=== PATIENT | male | born 1970 | race Caucasian/White ===

== ENCOUNTER 2020-04-28 12:26 | Emergency (ER) | payer MEDICARE, MEDICAID, SELFPAY ==
[2020-04-28 12:52] VITALS: BP 145/80; PULSE 60; RESP 18; TEMP 36.7; O2SAT 98; BMI 37.5
--- NOTE | 2020-04-28 13:02 | CT_ITS ---
EXAMINATION: CT LOWER LEG WITH CONTRAST, LEFT CLINICAL INFORMATION: Clinical concern for soft tissue abscess/fluid collection left lower leg. COMPARISON: Radiographs left ankle 02/20/2018 TECHNIQUE: CT left lower extremity is performed from the patellofemoral joint distally to the midfoot using 85 mL Omnipaque 350 contrast. Additional 2-D coronal and sagittal reformatted images are generated on the CT workstation and uploaded to PACS. DOSE LOWERING TECHNIQUES: This CT examination was performed using dose optimization techniques as appropriate, variously including the following: *Automated exposure control *Adjustment of mA and/or kV according to patient size (this includes techniques or standardized protocols for targeted exams where dose is matched to indication/reason for exam; i.e. extremities or head) *Use of iterative reconstruction technique DLP: 275 mGy-cm FINDINGS: There is some mild subcutaneous edema in the distal lower leg predominantly posteriorly. There is no gas in the soft tissues. There is no soft tissue loculated fluid collection. There is no fluid tracking in the deep fascial plane or deep compartment. The vasculature appears to enhance normally. There is no thrombophlebitis demonstrated. No visible arterial thrombus. There is old hardware lower tibia with compression plate and multiple screws. The hardware appears intact. There is no acute fracture. No bony destructive process or periostitis. The knee joint is unremarkable. There are old healed fractures involving the fibula. Benign intraosseous ossification is present in the lower third leg between the tibia and fibula, representing benign reactive changes. There are some benign circumscribed cysts again seen talar dome similar to the plain films 2018. No erosive changes. IMPRESSION: 1. Subcutaneous edema posterior distal lower leg. No focal abscess. No gas in the soft tissues or deep compartment fluid. 2. Old posttraumatic changes status post reduction internal fixation. Hardware intact. No bony destructive process or periostitis.
--- NOTE | 2020-04-28 13:24 | ED.LOWEXIN ---
HPI - Extremity Injury (Lower) General Chief Complaint: Extremity Injury, Lower Stated Complaint: l leg pain Time Seen by Provider: 04/28/20 12:53 Source: patient Mode of arrival: ambulatory History of Present Illness HPI Narrative: 50-year-old male with a PMHx anxiety, depression, LLE ORIF '05 presenting to ED complaining of left orosco erythema, swelling, and warmth x a few days. Admits to boil on this ankle x1 week which has since crusted over, now with swelling spreading proximally. Denies fever, chills, numbness/tingling, drainage from area, denies injury/trauma MD complaint: leg injury Related Data Previous Rx's Medication Instructions Recorded cephalexin [Keflex] 500 mg PO Q6H 7 Days #28 cap 04/28/20 sulfamethoxazole-trimethoprim 1 tab PO Q12H 7 Days #14 tab 04/28/20 [Bactrim DS] tramadol 50 mg PO Q6H PRN 3 Days #9 tab 04/28/20 Allergies Allergy/AdvReac Type Severity Reaction Status Date / Time codeine [CODEINE] Allergy Unknown PURITIS, Verified 04/28/20 12:52 HIVES, NAUSEA morphine [MORPHINE] Allergy Unknown PURITIS, Unverified 04/03/20 19:16 HIVES, NAUSEA opium (anthroposophic) Allergy Unknown SENSATIVITY Verified 04/28/20 12:52 trazodone Allergy Unknown AMS Verified 04/28/20 12:52 zolpidem [Ambien] Allergy Unknown AMS Verified 04/28/20 12:52 Opium Allergy Unknown SENSATIVITY Uncoded 04/28/20 12:52 Review of Systems Review of Systems: Constitutional: No Weight loss, No Fever, No Chills Cardiovascular: No Chest Pain, No SOB Respiratory: No Cough, No Sputum, No Wheezing Musculoskeletal: + LLE pain, No Myalgias, +L ankle Joint Swelling Skin: + LLE old surgical site erythema + warmth. Neuro: No Weakness, No Numbness, No Paresthesias Yes all other systems are reviewed and are negative [facility] Past Medical History Attestation statement: The following information was validated with the patient. Medical History (Updated 04/28/20 @ 16:15 by BRITTNI Engle) Anxiety Depression Social History Social History Advance Directives: No Advance Directives Information Provided: Yes Physical Exam Vital Signs: Vital Signs: Vital Signs Temp Pulse Resp BP Pulse Ox 04/28/20 16:07 97.8 F 55 18 129/65 97 04/28/20 12:52 98.0 F 60 18 145/80 H 98 Body Mass Index 37.5 Const: General: cooperative and healthy appearing Orientation/consciousness: patient oriented x3 Limitations: no limitations HENMT: Head: Yes normal to inspection Ears: hearing grossly normal bilaterally General nose exam: Normal external nose present Face and sinus: Yes normal facial exam Eyes: General: appearance normal, both eyes and all related structures EOM: EOMs intact bilaterally Neck: Neck: Yes normal visual inspection Resp: Effort & Inspection: normal respiratory effort Cardio: Rate: regular rate Peripheral pulses: Peripheral pulses 2+ throughout Skin: Rashes: no rashes Wounds: no wounds Neuro: General: patient oriented x3 Gait exam (Neuro): Normal gait present Extrem: Other: L ankle with swelling / healing scab to medial aspect with proximal spreading erythema/swelling with warmth. no fluctuance/induration Course Course Course Narrative: - no leukocytosis, lactate negative, labs otherwise unremarkable - CT showing subcutaneous edema posterior distal lower leg. No focal abscess. No gas in the soft tissues or deep compartment fluid. Old posttraumatic changes status post reduction internal fixation. Hardware intact. No bony destructive process - lab and imaging results discussed with patient including worrisome signs and symptoms and strict return precautions. Will DC patient home with antibiotics and close PCP follow-up. He verbalized understanding of feel safe for discharge MDM - Extremity Injury (Lower) MDM Narrative Medical decision making narrative: On exam VSS, NAD/ well-appearing. Concern for underlying cellulitis tracking old surgical site/hardware vs underlying abscess Plan: Labs, blood cx, lactic, CT LLE, reassess Lab Data Result diagrams: 04/28/20 14:08 04/28/20 14:08 Labs: Lab Results 04/28/20 04/28/20 04/28/20 Range/Units 14:07 14:08 14:08 WBC 7.2 (4.8-10.8) X10*3/uL RBC 4.47 L (4.60-5.80) X10*6/uL Hgb 12.5 L (14.0-18.0) g/dl Hct 39.7 L (42-52) % MCV 88.8 (80-98) fL MCH 28.0 (27.0-33.0) pg MCHC 31.5 (31.0-36.0) g/dl RDW 15.9 (11.0-16.0) % Plt Count 221 (160-400) X10*3/uL MPV 11.1 (9.4-12.4) fL Immature Gran % (Auto) 0.1 (0.0-0.4) % Neut % (Auto) 55.7 (45-73) % Lymph % (Auto) 26.8 (20-40) % Harlan % (Auto) 10.6 (2-11) % Eos % (Auto) 6.0 H (0-4) % Baso % (Auto) 0.8 (0-2) % Lymph # (Auto) 1.9 (1.2-4.9) X10*3/uL Harlan # (Auto) 0.8 (0.1-1.2) X10*3/uL Eos # (Auto) 0.4 (0.0-0.4) X10*3/uL Baso # (Auto) 0.1 (0.0-0.2) X10*3/uL Abs Immat Gran (auto) 0.01 (0.00-0.03) X10*3/uL Absolute Neuts (auto) 4.0 (2.0-8.3) X10*3/uL Absolute Nucleated RBC 0.000 (0.0-0.012) X10*3/uL Nucleated RBC % (auto) 0.0 (0.0-0.2) /100WBC Sodium 142 (135-145) mmol/L Potassium 4.1 (3.3-5.1) mmol/l Chloride 105 (96-108) mmol/L Carbon Dioxide 29 (22-29) mmol/L Anion Gap 12 (12-20) BUN 10 (9-16) mg/dL Creatinine 0.91 (0.5-1.4) mg/dL Estim Creat Clear Calc 113.0 Estimated GFR > 60 Random Glucose 92 (60-115) mg/dL Lactic Acid 0.8 (0.5-2.0) mmol/L Calcium 8.2 L (8.4-10.2) mg/dL Discharge Plan Discharge Clinical Impression: Cellulitis Qualifiers: Site of cellulitis: extremity Site of cellulitis of extremity: lower extremity Laterality: left Qualified Code(s): L03.116 - Cellulitis of left lower limb Patient Disposition: Home, Self-Care Instructions: Cellulitis (ED) Additional Instructions: your blood work was unremarkable today in the ED Your CAT scan showed subcutaneous edema, but no abscess Bactrim and Keflex for antibiotics, take as prescribed take Tylenol/ Motrin at home for pain/swelling In addition tramadol as an opiate pain medication, take only when pain is severe for the next 3 days Keep a close eye on the area, if it is worsening, spreading, you fever, or swelling is increasing return to the ED immediately You should be re-evaluated in a few days by your doctor Prescriptions: New cephalexin [Keflex] 500 mg capsule 500 mg PO Q6H 7 Days Qty: 28 RF: 0 sulfamethoxazole-trimethoprim [Bactrim DS] 800-160 mg tablet 1 tab PO Q12H 7 Days Qty: 14 RF: 0 tramadol 50 mg tablet 50 mg PO Q6H PRN (Reason: pain) 3 Days Qty: 9 RF: 0
[2020-04-28 14:16] LABS: MANUAL DIFF FLAG NO
[2020-04-28 14:18] LABS: Basophils Absolute Auto 0.1 X10*3/uL (0.0-0.2); Basophils Percent Auto 0.8 % (0-2); Eosinophils Absolute Auto 0.4 X10*3/uL (0.0-0.4); Hematocrit 39.7 % (42-52); Hemoglobin 12.5 g/dl (14.0-18.0); Imm Gran Abs Auto 0.01 X10*3/uL (0.00-0.03); Imm Gran Pct Auto 0.1 % (0.0-0.4); Lymphocytes Absolute Auto 1.9 X10*3/uL (1.2-4.9); Lymphocytes Percent Auto 26.8 % (20-40); Mean Corpuscular HGB Conc 31.5 g/dl (31.0-36.0); Mean Corpuscular Volume 88.8 fL (80-98); Mean Platelet Volume 11.1 fL (9.4-12.4); Monocytes Absolute Auto 0.8 X10*3/uL (0.1-1.2); Monocytes Percent Auto 10.6 % (2-11); Neutrophils Percent Auto 55.7 % (45-73); Platelet Count 221 X10*3/uL (160-400); Red Blood Count 4.47 X10*6/uL (4.60-5.80); Red Cell Distribution Width 15.9 % (11.0-16.0); White Blood Count 7.2 X10*3/uL (4.8-10.8)
[2020-04-28 14:33] LABS: Lactic Acid 0.8 mmol/L (0.5-2.0)
[2020-04-28 14:37] LABS: Anion Gap 12 (12-20); Blood Urea Nitrogen 10 mg/dL (9-16); Calcium 8.2 mg/dL (8.4-10.2); Carbon Dioxide 29 mmol/L (22-29); Chloride 105 mmol/L (96-108); Estimated Glomerular Filt Rate > 60; Glucose Random 92 mg/dL (60-115); Potassium 4.1 mmol/l (3.3-5.1); Sodium 142 mmol/L (135-145)
--- NOTE | 2020-04-28 14:58 | PC.NURSE ---
no need for 2nd set of blood cx per pa sylwia r/t lactic results 0.8
[2020-04-28] MEDS: iohexoL 350 MG/ML 100 ML INFUS..BTL IV (15:43)
[2020-04-28 16:07] VITALS: BP 129/65; PULSE 55; RESP 18; TEMP 36.6; O2SAT 97
== END 2020-04-28 16:43 | disposition home or self-care (01) ==
PROVIDERS: Physician Assistant; Emergency Provider Emergency Medicine; PCP Internal Medicine
DX: L03.116 Cellulitis of left lower limb (principal); M79.662 Pain in left lower leg
CPT/HCPCS: 36415; 73701; 80048; 83605; 85025; 87040; 99283; 99284

== ENCOUNTER → 2020-08-11 11:26 | Outpatient (BNVA) | payer MEDICARE, MEDICAID, SELFPAY | PROVIDERS: PCP Internal Medicine; Visit Provider Orthopaedic Surgery | DX: T84.7XXA Infection and inflammatory reaction due to other internal orthopedic prosthetic devices, implants and grafts, initial encounter (principal) | CPT/HCPCS: 99212 ==

== ENCOUNTER 2020-08-21 12:18 | Outpatient (REF) | payer MEDICARE, MEDICAID, SELFPAY ==
--- NOTE | ~2020-08-21 | XR_ITS ---
EXAMINATION: XR ANKLE, LEFT CLINICAL INFORMATION: Pain in the ankle and joints of the foot COMPARISON: 02/20/2018 TECHNIQUE: AP, lateral, and mortise views of the left ankle. FINDINGS: Medial plate and screw fixation hardware is present at the distal tibia with additional cannulated screw at the medial malleolus. Hardware is intact. No acute fractures seen. There is ossification along the tibiofibular syndesmosis with bridging present. This is similar to prior. The ankle mortise remains aligned with degenerative change along the mortise. No joint effusion. The soft tissues are unremarkable. XR/XR ankle LT min 3V IMPRESSION: Intact hardware at the distal left tibia. 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 Degenerative changes along the ankle mortise.
== END 2020-08-21 12:19 | disposition home or self-care (01) ==
LOC: HO.HOSX 12:18
PROVIDERS: Visit Provider Physician Assistant
DX: T84.84XD Pain due to internal orthopedic prosthetic devices, implants and grafts, subsequent encounter (principal)
CPT/HCPCS: 73610; 99212

== ENCOUNTER 2020-08-27 08:28 | Inpatient (IN) | payer MEDICARE, MEDICAID, SELFPAY ==
[2020-08-20 14:36] VITALS: BMI 81.5
--- NOTE | 2020-08-26 14:17 | P.CONAN_ITS ---
Documented by User: Ursula Covarrubiasney 08/26/20 14:23 HPI - Anesthesia Eval Consult details Narrative: 50yo M for L Removal Orthopedic Ankle Hardware h/o ETOH abuse - pt wants to limit opioids PMFSH Active Problems Active Problems: All Active Problems (Updated 08/21/20 @ 14:27 by Sydnee Jara PA-C) Painful orthopaedic hardware (Acute) Ankle pain (Acute) Leg pain (Acute) Foot pain (Acute) Multiple lipomas (Acute) Past Medical History Medical History Anxiety Depression Foot pain History of alcohol abuse History of seizure Hx of traumatic brain injury Insomnia Multiple lipomas Panic disorder PTSD (post-traumatic stress disorder) Smoker Family History Family History Father No problems noted. Mother No problems noted. Surgical History Surgical History History of ankle surgery History of gastric bypass History of vasectomy Social History Social History Are you a primary home care companion to a significant other at home: No Do you presently have visiting nurse or other home services: No Alcohol intake: former Smoking Status: Current every day smoker Tobacco Type: Cigarette Packs Per Day: 1.5 Cigarettes Per Day: 30.0 Smoked in Last 30 Days: Yes Patient Interested in Nicotine Replacement: No Patient Given Instructions on How to Stop Smoking: Yes Date Education Initiated: 08/20/20 Use of substances other than those prescribed or required for medical reasons: No Have you been hit, kicked, punched, or otherwise hurt by someone within the past year? If so, by whom?: No Advance Directives: No Advance Directives Information Provided: No Advance Directives on File: No Recently lost weight without trying: No Current occupational status: disabled Current occupation: right handed Meds Allergies Allergy/AdvReac Type Severity Reaction Status Date / Time codeine [CODEINE] Allergy Unknown PURITIS, Verified 08/20/20 14:06 HIVES, NAUSEA morphine [MORPHINE] Allergy Unknown PURITIS, Verified 08/20/20 14:06 HIVES, NAUSEA opium (anthroposophic) Allergy Unknown SENSATIVITY Verified 08/20/20 14:06 trazodone Allergy Unknown AMS Verified 08/20/20 14:06 zolpidem [Ambien] Allergy Unknown AMS Verified 08/20/20 14:06 Opium Allergy Unknown SENSATIVITY Uncoded 08/20/20 14:06 Home Medications Medication Instructions Recorded Confirmed Type clonidine HCl 0.1 mg tablet 0.1 mg PO BEDTIME 07/30/20 08/20/20 History Exam Exam Date and Time: August 26, 2020 1417 Height,Weight and Vital Signs: Height 5 ft 7 in Weight 236 kg Pertinent Lab Results Pertinent Lab Results: Laboratory Tests 04/28/20 04/28/20 14:08 14:08 WBC 7.2 Hgb 12.5 L Hct 39.7 L Plt Count 221 Sodium 142 Potassium 4.1 Chloride 105 Carbon Dioxide 29 BUN 10 Creatinine 0.91 Assessment and Plan Assessment Anesthesia Assessment: Chart Reviewed Documented by User: Scott Powell MD 08/27/20 09:09 [facility] Past Medical History Medical History Anxiety Depression Foot pain History of alcohol abuse History of seizure Hx of traumatic brain injury Insomnia Multiple lipomas Panic disorder PTSD (post-traumatic stress disorder) Smoker Family History Family History Father No problems noted. Mother No problems noted. Surgical History Surgical History History of ankle surgery History of gastric bypass History of vasectomy Social History Social History Are you a primary home care companion to a significant other at home: No Do you presently have visiting nurse or other home services: No Alcohol intake: former Smoking Status: Current every day smoker Tobacco Type: Cigarette Packs Per Day: 1.5 Cigarettes Per Day: 30.0 Smoked in Last 30 Days: Yes Patient Interested in Nicotine Replacement: No Patient Given Instructions on How to Stop Smoking: Yes Date Education Initiated: 08/20/20 Use of substances other than those prescribed or required for medical reasons: No Have you been hit, kicked, punched, or otherwise hurt by someone within the past year? If so, by whom?: No Advance Directives: No Advance Directives Information Provided: No Advance Directives on File: No Recently lost weight without trying: No Current occupational status: disabled Current occupation: right handed Meds Allergies Allergy/AdvReac Type Severity Reaction Status Date / Time codeine [CODEINE] Allergy Unknown PURITIS, Verified 08/20/20 14:06 HIVES, NAUSEA morphine [MORPHINE] Allergy Unknown PURITIS, Verified 08/20/20 14:06 HIVES, NAUSEA opium (anthroposophic) Allergy Unknown SENSATIVITY Verified 08/20/20 14:06 trazodone Allergy Unknown AMS Verified 08/20/20 14:06 zolpidem [Ambien] Allergy Unknown AMS Verified 08/20/20 14:06 Opium Allergy Unknown SENSATIVITY Uncoded 08/20/20 14:06 Home Medications Medication Instructions Recorded Confirmed Type clonidine HCl 0.1 mg tablet 0.1 mg PO BEDTIME 07/30/20 08/20/20 History Exam Airway Mallampati Class: III TM Dist: >3cm Neck ROM: Full Denture: Upper and Lower Heart: RRR Lungs: NL Other: Lipomatous swelling on right maxila, nontender and non-mobile. No limitation of jaw movement. Assessment and Plan Assessment Anesthesia Assessment: Anesthesia Plan Discussed and Chart Reviewed Final Anesthetic Review NPO: Yes ASA Class: III Final Preanesthetic Review: No Changes in Pt Med Stat, Meds/Allgs Chart Reviewed, Consent Obtained/Reviewed and Anes Risks/Benef Reviewed Patient Risk: Intermediate Procedure Risk: Intermediate Anesthetic Plan Anesthetic Plan: GA (Patient declined nerve block/spinal) and Epidural Disposition: Standard PACU
[2020-08-27] VITALS (18 sets, daily range): BP systolic 101–136; BP diastolic 54–93; PULSE 47–69; RESP 18–22; TEMP 36.3–36.8; O2SAT 95–100; BMI 36.8
--- NOTE | ~2020-08-27 | FL_ITS ---
EXAMINATION: XR FLUOROSCOPY WITH IMAGES CLINICAL INFORMATION: Hardware removal multiple left leg COMPARISON: Previous x-ray April 2020 TECHNIQUE: Fluoroscopy performed by Dr. Ron Villegas. Fluoroscopy time: 6 seconds DAP: 30 mGycm2 Images: 1 FINDINGS: Single AP image of the ankle demonstrate no orthopedic hardware. There may be cortical thickening of the medial distal tibia. There is ossification in between the lateral tibia and medial fibular shaft suggestive of the intraosseous ligament ossification. FL/FL guidance in OR IMPRESSION: Fluoroscopy guidance for orthopedic hardware removal.
--- NOTE | 2020-08-27 07:29 | MHC.SHP ---
Pre-Procedural Eval Section A The patient is an INPATIENT: No Changes since office visit: Yes Patient answered all questions; No Cold of Flu in the past 2 weeks, No New Medical Problems and No Changes in Medication The History & Physical has been completed within 30 days and I have reviewed it.: Yes Section B Chief Complaint: retained orthopedic hardware left ankle Allergies: Allergies Allergy/AdvReac Type Severity Reaction Status Date / Time codeine [CODEINE] Allergy Unknown PURITIS, Verified 08/20/20 14:06 HIVES, NAUSEA morphine [MORPHINE] Allergy Unknown PURITIS, Verified 08/20/20 14:06 HIVES, NAUSEA opium (anthroposophic) Allergy Unknown SENSATIVITY Verified 08/20/20 14:06 trazodone Allergy Unknown AMS Verified 08/20/20 14:06 zolpidem [Ambien] Allergy Unknown AMS Verified 08/20/20 14:06 Opium Allergy Unknown SENSATIVITY Uncoded 08/20/20 14:06 Plan I have reviewed the history and physical and performed a pertinent physical examination on my patient. No changes have occurred unless specified.
[2020-08-27] MEDS: Lactated Ringers 1,000 ML 100 ML IVCONT (09:08)
[2020-08-27 09:10] LABS: COVID-19 Test Negative (Negative); IDNOW Serial# 9DD0AD1C
[2020-08-27] MEDS: HYDROmorphone HCl 0.5 MG/0.5 ML SYRINGE 0.25 MG IVPUSH ×4 (10:58→19:25)
--- NOTE | 2020-08-27 14:04 | P.CONIM_ITS ---
History of Present Illness Data of Consult Service Date: 08/27/20 <BRITTNI Vazquez - Last Filed: 08/27/20 14:22> Requesting physician: Sydnee Jara <BRITTNI Vazquez - Last Filed: 08/27/20 14:22> Primary Care Provider: Doc Cortes MD <BRITTNI Vazquez - Last Filed: 08/27/20 14:22> HPI Reason for consult: h/o alcohol abuse/perioperative management <BRITTNI Vazquez - Last Filed: 08/27/20 14:22> This is a 50-year-old male/depression with history of infected hardware after remote tibial ORIF who was admitted for removal of hardware. Remote history of medial tibial ORIF. Recently developed skin changes and was treated with po antibiotics without good effect. He was admitted for deep infection and hardware removal by orthopedic surgery. The hospitalists were asked to see him in consultation for perioperative management. Patient denies any significant medical history and reports that he does not take any medication at home. He denies any chest pain, shortness of breath at this time. He has voided after surgery and is tolerating a regular diet. He has no specific complaints at this time. <BRITTNI Vazquez - Last Filed: 08/27/20 14:22> Review of Systems Review of Systems: Yes all other systems are reviewed and are negative <BRITTNI Vazquez - Last Filed: 08/27/20 14:22> Cardiovascular: Cardiovascular: Denies chest pain, Denies palpitations and Denies dyspnea <BRITTNI Vazquez Last Filed: 08/27/20 14:22> Respiratory: Respiratory: Denies cough and Denies dyspnea <BRITTNI Vazquez Last Filed: 08/27/20 14:22> Gastrointestinal: Gastrointestinal: Denies abdominal pain, Denies nausea and Denies vomiting <BRITTNI Vazquez Last Filed: 08/27/20 14:22> Endocrine: Endocrine: Denies palpitations <BRITTNI Vazquez Last Filed: 08/27/20 14:22> [facility] Medical History: Medical History Anxiety Depression Foot pain History of alcohol abuse History of seizure Hx of traumatic brain injury Insomnia Multiple lipomas Panic disorder PTSD (post-traumatic stress disorder) Smoker <BRITTNI Vazquez - Last Filed: 08/27/20 14:22> Functional capacity: independent ambulation <BRITTNI Vazquez - Last Filed: 08/27/20 14:22> Family History: Family History Father No problems noted. Mother No problems noted. <BRITTNI Vazquez - Last Filed: 08/27/20 14:22> Family history: reviewed and not pertinent <BRITTNI Vazquez - Last Filed: 08/27/20 14:22> Surgical History: Surgical History History of ankle surgery History of gastric bypass History of vasectomy <BRITTNI Vazquez - Last Filed: 08/27/20 14:22> Social History: Social History Alcohol intake: former Smoking Status: Current every day smoker Tobacco Type: Cigarette Packs Per Day: 1.5 Cigarettes Per Day: 30.0 service: No Current occupational status: unemployed and disabled Current occupation: right handed <BRITTNI Vazquez - Last Filed: 08/27/20 14:22> Meds Allergies/Adverse reactions: Allergies Allergy/AdvReac Type Severity Reaction Status Date / Time codeine [CODEINE] Allergy Unknown PURITIS, Verified 08/20/20 14:06 HIVES, NAUSEA morphine [MORPHINE] Allergy Unknown PURITIS, Verified 08/20/20 14:06 HIVES, NAUSEA opium (anthroposophic) Allergy Unknown SENSATIVITY Verified 08/20/20 14:06 trazodone Allergy Unknown AMS Verified 08/20/20 14:06 zolpidem [Ambien] Allergy Unknown AMS Verified 08/20/20 14:06 Opium Allergy Unknown SENSATIVITY Uncoded 08/20/20 14:06 <BRITTNI Vazquez - Last Filed: 08/27/20 14:22> Active Medications: Current Medications Generic Name Dose Route Start Last Admin Trade Name Freq PRN Reason Stop Dose Admin Acetaminophen 650 mg 08/27/20 13:02 Acetaminophen 325 Mg Tablet PO Q6H PRN Pain, Mild (Pain Scale 1-3) Albuterol Sulfate 2.5 mg 08/27/20 08:28 Albuterol Sulfate (0.083%) 2.5 Mg/3 Ml Vial.Neb INHALE ONCE PRN Shortness of Breath/Wheezing Celecoxib 200 mg 08/27/20 21:00 Celecoxib 200 Mg Capsule PO BID [facility] Hydromorphone HCl 0.25 mg 08/27/20 13:02 Hydromorphone Hcl 0.5 Mg/0.5 Ml Syringe IVPUSH Q4H PRN Pain, Severe (Pain Scale 7-10) Dextrose/Sodium Chloride 1,000 mls @ 80 mls/hr 08/27/20 13:02 D51/2ns IVCONT .[id number] [facility] Cefazolin Sodium/Dextrose 2 gm in 50 mls @ 100 mls/hr 08/27/20 16:00 Ancef IV 08/27/20 16:29 POSTOP ONE Naloxone HCl 0.2 mg 08/27/20 13:02 Naloxone Hcl 0.4 Mg/Ml Vial IVPUSH Q2M PRN Excessive sedation or RR < 8 Nicotine 21 mg 08/27/20 14:05 Nicotine 21 Mg Patch.[id number] TRANSDERMA DAILY [facility] Ondansetron HCl 4 mg 08/27/20 13:02 Ondansetron Hcl 4 Mg/2 Ml Vial IVPUSH Q8H PRN Nausea and Vomiting Oxycodone HCl 5 mg 08/27/20 13:02 Oxycodone Hcl Immed Release 5 Mg Tablet PO Q4H PRN pain Oxycodone HCl 10 mg 08/27/20 13:02 Oxycodone Hcl Immed Release 5 Mg Tablet PO Q4H PRN Pain, Moderate (Pain Scale 4-6 Oxycodone HCl 10 mg 08/27/20 21:00 Oxycodone Hcl Er 10 Mg Tab.Er.12h PO BID [facility] Senna 17.2 mg 08/27/20 13:02 Sennosides 8.6 Mg Tablet PO BEDTIME PRN Constipation Sodium Chloride 3 ml 08/27/20 16:00 0.9 % Sodium Chloride Flush 3 Ml Syringe IVFLUSH QSHIFT [facility] <BRITTNI Vazquez - Last Filed: 08/27/20 14:22> Home medications: Home Medications Medication Instructions Recorded Confirmed Last Taken Type clonidine HCl 0.1 mg tablet 0.1 mg PO BEDTIME 07/30/20 08/20/20 Unknown History <BRITTNI Vazquez - Last Filed: 08/27/20 14:22> Physical Exam Vital Signs and Narrative: Vital Signs: Last Vital Signs Temp 97.4 F 08/27/20 13:05 Pulse 56 08/27/20 13:05 Resp 18 08/27/20 13:05 BP 111/93 H 08/27/20 13:05 Pulse Ox 98 08/27/20 13:05 Body Mass Index 81.5 <BRITTNI Vazquez - Last Filed: 08/27/20 14:22> Const: General: comfortable, alert and awake; No no acute distress <BRITTNI Vazquez Last Filed: 08/27/20 14:22> Nutritional Appearance: well nourished <BRITTNI Vazquez - Last Filed: 08/27/20 14:22> Orientation/consciousness: patient oriented x3 <BRITTNI Vazquez - Last Filed: 08/27/20 14:22> HENMT: Head: Yes normocephalic and Yes atraumatic <BRITTNI Vazquez - Last Filed: 08/27/20 14:22> Eyes: Sclerae: sclerae normal <BRITTNI Vazquez - Last Filed: 08/27/20 14:22> Chest: Chest palpation & inspection: normal inspection of the chest <BRITTNI Vazquez Last Filed: 08/27/20 14:22> Resp: Effort & Inspection: normal respiratory effort and no respiratory distress <BRITTNI Vazquez - Last Filed: 08/27/20 14:22> Auscultation: clear to auscultation bilaterally <BRITTNI Vazquez Last Filed: 08/27/20 14:22> Cardio: Rate: regular rate <BRITTNI Vazquez Last Filed: 08/27/20 14:22> Rhythm: regular rhythm <BRITTNI Vazquez - Last Filed: 08/27/20 14:22> GI: Palpation (GI): Soft to palpation and nontender <BRITTNI Vazquez - Last Filed: 08/27/20 14:22> Skin: General skin exam: no rashes or lesions noted <BRITTNI Vazquez - Last Filed: 08/27/20 14:22> Neuro: General: patient oriented x3 <BRITTNI Vazquez - Last Filed: 08/27/20 14:22> Cranial nerves: Yes CN's II-XII intact bilaterally and Yes Bilaterally intact EOM present <BRITTNI Vazquez - Last Filed: 08/27/20 14:22> Extrem: Other: left lower extremity with wound vac in place <BRITTNI Vazquez - Last Filed: 08/27/20 14:22> Results Labs CBC and Chem 7: : 08/28/20 05:44 08/28/20 05:44 <BRITTNI Vazquez - Last Filed: 08/27/20 14:22> Labs: Laboratory Results - last 24 hr 08/27/20 08:39 COVID-19 ([facility]) Negative COVID-19 Clin Com See Note <BRITTNI Vazquez - Last Filed: 08/27/20 14:22> Assessment and Plan (1) Tobacco dependence: Status: Acute <BRITTNI Vazquez - Last Filed: 08/27/20 14:22> This is a 50-year-old male with history of anxiety, depression, history of alcohol abuse sober for the past 5 years, infection of hardware from remote medial tibial plate ORIF here for hardware removal. s/p hardware removal wound vac placement -on vancomycin, ancef -rec checking basic labs especially BMP given vancomycin Remainder of management per orthopedic team tobacco dependence -smoking cessation advised -NRT Clonidine on med rec but pt denies taking any medication at home. Thank you for allowing us to participate in the care of this patient. This case was discussed with Dr. Llamas <BRITTNI Vazquez - Last Filed: 08/27/20 14:22>
[2020-08-27] MEDS: Nicotine 21 MG PATCH.TD24 TRANSDERMA (14:38)
[2020-08-27] MEDS: Dextrose 5 % and 0.45 % NaCl 1,000 ML 80 ML IVCONT (14:40)
[2020-08-27 14:53] LABS: Hematocrit 41.7 % (42-52); Hemoglobin 13.1 g/dl (14.0-18.0); Mean Corpuscular HGB Conc 31.4 g/dl (31.0-36.0); Mean Corpuscular Hemoglobin 27.8 pg (27.0-33.0); Mean Corpuscular Volume 88.5 fL (80-98); Mean Platelet Volume 10.7 fL (9.4-12.4); Platelet Count 216 X10*3/uL (160-400); Red Blood Count 4.71 X10*6/uL (4.60-5.80); Red Cell Distribution Width 15.4 % (11.0-16.0)
[2020-08-27 15:19] LABS: Anion Gap 14 (12-20); Blood Urea Nitrogen 6 mg/dL (9-16); Carbon Dioxide 23 mmol/L (22-29); Chloride 108 mmol/L (96-108); Estimated Glomerular Filt Rate > 60; Glucose Random 175 mg/dL (60-115); Potassium 4.5 mmol/L (3.3-5.1); Sodium 140 mmol/L (135-145)
[2020-08-27 15:42] LABS: Vancomycin Trough < 3.0 mcg/mL (10.0-20.0)
[2020-08-27] MEDS: ceFAZolin Sodium/Dextrose,Iso 2 GM/50 ML PIGGYBACK IV (15:54)
[2020-08-27] MEDS: oxyCODONE HCl Immed Release 5 MG TABLET 10 MG PO ×2 (16:00→23:02)
[2020-08-27] MEDS: 0.9 % Sodium Chloride Flush 3 ML SYRINGE IVFLUSH (19:06)
[2020-08-27] MEDS: Celecoxib 200 MG CAPSULE PO (20:13)
[2020-08-27] MEDS: oxyCODONE HCl ER 10 MG TAB.ER.12H PO (20:13)
[2020-08-28] MEDS: HYDROmorphone HCl 0.5 MG/0.5 ML SYRINGE 0.25 MG IVPUSH ×4 (02:48→23:32)
[2020-08-28 04:00] VITALS: BP 139/61; PULSE 59; RESP 19; TEMP 36.5; O2SAT 95
[2020-08-28] MEDS: oxyCODONE HCl Immed Release 5 MG TABLET 10 MG PO ×3 (05:01→21:35)
[2020-08-28 06:15] LABS: MANUAL DIFF FLAG NO
[2020-08-28 06:19] LABS: Basophils Absolute Auto 0.1 X10*3/uL (0.0-0.2); Basophils Percent Auto 0.5 % (0-2); Eosinophils Percent Auto 0.1 % (0-4); Hematocrit 36.3 % (42-52); Hemoglobin 11.2 g/dl (14.0-18.0); Imm Gran Abs Auto 0.04 X10*3/uL (0.00-0.03); Imm Gran Pct Auto 0.4 % (0.0-0.4); Lymphocytes Absolute Auto 1.3 X10*3/uL (1.2-4.9); Lymphocytes Percent Auto 12.7 % (20-40); Mean Corpuscular HGB Conc 30.9 g/dl (31.0-36.0); Mean Corpuscular Hemoglobin 27.6 pg (27.0-33.0); Mean Corpuscular Volume 89.4 fL (80-98); Mean Platelet Volume 11.4 fL (9.4-12.4); Monocytes Absolute Auto 0.9 X10*3/uL (0.1-1.2); Monocytes Percent Auto 8.8 % (2-11); Neutrophils Percent Auto 77.5 % (45-73); Platelet Count 204 X10*3/uL (160-400); Red Blood Count 4.06 X10*6/uL (4.60-5.80); Red Cell Distribution Width 15.4 % (11.0-16.0); White Blood Count 10.3 X10*3/uL (4.8-10.8)
--- NOTE | 2020-08-28 06:43 | HO.POSTANES ---
Post Anesthesia Evaluation Post Anesthesia Evaluation Vital Signs: Vital Signs Temp Pulse Resp BP Pulse Ox 08/28/20 04:00 97.7 F 59 19 139/61 95 08/27/20 23:23 97.6 F 69 20 114/58 L 97 08/27/20 19:18 97.7 F 52 18 136/61 95 Anesthesia: General Mental Status: Awake Pain Control: Satisfactory Nausea/Vomiting: None Hydration: Adequate Anesthesia-Related Issues: No Anes. Related Issues
[2020-08-28 06:44] LABS: Anion Gap 11 (12-20); Blood Urea Nitrogen 9 mg/dL (9-16); Calcium 8.2 mg/dL (8.4-10.2); Carbon Dioxide 27 mmol/L (22-29); Chloride 109 mmol/L (96-108); Creatinine Clr Calc Pharmacy 108.3; Estimated Glomerular Filt Rate > 60; Glucose Fasting 113 mg/dL (60-99); Potassium 4.6 mmol/L (3.3-5.1); Sodium 142 mmol/L (135-145)
[2020-08-28 07:21] VITALS: BP 113/65; PULSE 59; RESP 17; TEMP 37.1; O2SAT 96
--- NOTE | 2020-08-28 07:31 | PM.PNORT ---
Subjective Subjective Date of Service: 08/28/20 Interval history: left ankle OREN POD1. Pt. states he is having difficulty with pain management. Difficulty sleeping overnight. No other over night events. Denies SOB, chest pain, abd pain. Physical Exam Vital Signs: Vital Signs: Last Vital Signs Temp 98.7 F 08/28/20 07:21 Pulse 59 08/28/20 07:21 Resp 17 08/28/20 07:21 BP 113/65 08/28/20 07:21 Pulse Ox 96 08/28/20 07:21 Body Mass Index 36.8 Const: General: cooperative, healthy appearing and no acute distress Resp: Effort & Inspection: normal respiratory effort and able to speak in complete sentences Cardio: Rate: regular rate Peripheral pulses: Peripheral pulses 2+ throughout GI: Palpation (GI): Soft to palpation Skin: Lesions: no lesions Rashes: no rashes Extrem: Other: left ankle Prevena intact over the incision. No redness, ecchymosis, or drainage. NVI. Progress Note: A&P Assessment and plan (1) Painful orthopaedic hardware: Status: Acute Assessment and Plan: Continue pain mgmnt begin PT for rt ankle OREN Dispo planning-Pending PT eval, pain mgmnt Fall Risk Details Current Medications: Current Medications Generic Name Dose Route Start Last Admin Trade Name Freq PRN Reason Stop Dose Admin Acetaminophen 650 mg 08/27/20 13:02 Acetaminophen 325 Mg Tablet PO Q6H PRN Pain, Mild (Pain Scale 1-3) Albuterol Sulfate 2.5 mg 08/27/20 08:28 Albuterol Sulfate (0.083%) 2.5 Mg/3 Ml Vial.Neb INHALE ONCE PRN Shortness of Breath/Wheezing Celecoxib 200 mg 08/27/20 21:00 08/27/20 20:13 Celecoxib 200 Mg Capsule PO 200 mg BID KENDALL Administration Hydromorphone HCl 0.25 mg 08/27/20 13:02 08/28/20 02:48 Hydromorphone Hcl 0.5 Mg/0.5 Ml Syringe IVPUSH 0.25 mg Q4H PRN Administration Pain, Severe (Pain Scale 7-10) Dextrose/Sodium Chloride 1,000 mls @ 80 mls/hr 08/27/20 13:02 08/28/20 07:06 D51/2ns IVCONT Infused .[id number] KENDALL Infusion Vancomycin HCl 2,000 mg/ 540 mls @ 270 mls/hr 08/27/20 16:00 08/27/20 19:09 Sodium Chloride IV Infused ONCE KENDALL Infusion Vancomycin HCl 1,000 mg/ 270 mls @ 270 mls/hr 08/28/20 08:00 Sodium Chloride IV Q12H KENDALL Naloxone HCl 0.2 mg 08/27/20 13:02 Naloxone Hcl 0.4 Mg/Ml Vial IVPUSH Q2M PRN Excessive sedation or RR < 8 Nicotine 21 mg 08/27/20 14:05 08/27/20 14:38 Nicotine 21 Mg Patch.Td24 TRANSDERMA 21 mg DAILY KENDALL Administration Ondansetron HCl 4 mg 08/27/20 13:02 Ondansetron Hcl 4 Mg/2 Ml Vial IVPUSH Q8H PRN Nausea and Vomiting Oxycodone HCl 5 mg 08/27/20 13:02 Oxycodone Hcl Immed Release 5 Mg Tablet PO Q4H PRN pain Oxycodone HCl 10 mg 08/27/20 13:02 08/28/20 05:01 Oxycodone Hcl Immed Release 5 Mg Tablet PO 10 mg Q4H PRN Administration Pain, Moderate (Pain Scale 4-6 Oxycodone HCl 10 mg 08/27/20 21:00 08/27/20 20:13 Oxycodone Hcl Er 10 Mg Tab.Er.12h PO 10 mg BID KENDALL Administration Pharmacy Consult 1 each 08/27/20 14:03 Consult Rx Vancomycin Dosing MISCELLANE DAILY PRN Consult order Senna 17.2 mg 08/27/20 13:02 Sennosides 8.6 Mg Tablet PO BEDTIME PRN Constipation Sodium Chloride 3 ml 08/27/20 16:00 08/27/20 19:06 0.9 % Sodium Chloride Flush 3 Ml Syringe IVFLUSH 3 ml QSHIFT KENDALL Administration Time Spent With Patient Time: Total time spent is greater than 50% in coordination of care (as documented) at patient's floor/unit and/or counseling patient: Time with patient: less than 15 minutes
[2020-08-28] MEDS: vancomycin HCL 1,000 MG in 0.9 % Sodium Chloride 250 ML 270 MG IV ×2 (08:06→19:37)
--- NOTE | 2020-08-28 08:45 | MHC.CM.PN ---
PATIENT LIVES ALONE. HE DOES LIVE ABOVE HIS NEW HCP AGENTS, WHO ASSIST WITH TRANSPORT HE IS AWARE OF THE NEED FOR VNA SERVICES, AND CHOOSES [facility]. REFERRAL NOW PLACED. HCP COPY IN CHART. PATIENT HAS A CANE, WALKER, AND CRUTCHES IN THE HOME. IMM 08/28 IN CHART.
[2020-08-28] MEDS: Nicotine 21 MG PATCH.TD24 TRANSDERMA (09:30)
[2020-08-28] MEDS: oxyCODONE HCl ER 10 MG TAB.ER.12H PO ×2 (09:30→20:38)
[2020-08-28] MEDS: Celecoxib 200 MG CAPSULE PO ×2 (09:59→20:38)
[2020-08-28] MEDS: Aspirin 325 MG TABLET PO ×2 (10:00→20:38)
[2020-08-28 11:09] VITALS: BP 114/53; PULSE 54; RESP 18; TEMP 36.7; O2SAT 96
[2020-08-28 11:27] VITALS: BMI 36.8
[2020-08-28 15:37] VITALS: BP 130/64; PULSE 57; RESP 16; TEMP 36.9; O2SAT 95
[2020-08-28 19:32] VITALS: BP 119/61; PULSE 52; RESP 18; TEMP 36.5; O2SAT 94
[2020-08-28] MEDS: 0.9 % Sodium Chloride Flush 3 ML SYRINGE IVFLUSH (20:42)
[2020-08-28] MEDS: Dextrose 5 % and 0.45 % NaCl 1,000 ML 80 ML IVCONT (22:55)
[2020-08-28 23:24] VITALS: BP 124/73; PULSE 55; RESP 16; TEMP 36.6; O2SAT 95
[2020-08-29] VITALS (8 sets, daily range): BP systolic 114–164; BP diastolic 64–74; PULSE 59–83; RESP 14–20; TEMP 36.3–36.8; O2SAT 93–100
[2020-08-29] MEDS: oxyCODONE HCl Immed Release 5 MG TABLET 10 MG PO (02:02)
[2020-08-29] MEDS: ondansetron HCL 4 MG/2 ML VIAL IVPUSH (02:13)
[2020-08-29] MEDS: HYDROmorphone HCl 0.5 MG/0.5 ML SYRINGE 0.25 MG IVPUSH ×5 (05:16→23:48)
--- NOTE | 2020-08-29 05:38 | PC.NURSE ---
pt given 10 mg of oxy at 0202, shortly after pt vomited about 20 ml, pt then given iv zofran at 0213 with good effect.
[2020-08-29 06:57] LABS: MANUAL DIFF FLAG NO
[2020-08-29 07:05] LABS: Basophils Percent Auto 0.4 % (0-2); Eosinophils Absolute Auto 0.2 X10*3/uL (0.0-0.4); Eosinophils Percent Auto 1.9 % (0-4); Hematocrit 36.7 % (42-52); Hemoglobin 11.4 g/dl (14.0-18.0); Imm Gran Abs Auto 0.02 X10*3/uL (0.00-0.03); Imm Gran Pct Auto 0.2 % (0.0-0.4); Lymphocytes Absolute Auto 1.4 X10*3/uL (1.2-4.9); Lymphocytes Percent Auto 15.7 % (20-40); Mean Corpuscular HGB Conc 31.1 g/dl (31.0-36.0); Mean Corpuscular Hemoglobin 27.6 pg (27.0-33.0); Mean Corpuscular Volume 88.9 fL (80-98); Mean Platelet Volume 11.2 fL (9.4-12.4); Monocytes Absolute Auto 0.9 X10*3/uL (0.1-1.2); Monocytes Percent Auto 9.6 % (2-11); Neutrophils Absolute Auto 6.4 X10*3/uL (2.0-8.3); Neutrophils Percent Auto 72.2 % (45-73); Platelet Count 204 X10*3/uL (160-400); Red Blood Count 4.13 X10*6/uL (4.60-5.80); Red Cell Distribution Width 15.5 % (11.0-16.0); White Blood Count 8.9 X10*3/uL (4.8-10.8)
[2020-08-29 07:24] LABS: Anion Gap 11 (12-20); Blood Urea Nitrogen 17 mg/dL (9-16); Carbon Dioxide 26 mmol/L (22-29); Chloride 111 mmol/L (96-108); Creatinine Clr Calc Pharmacy 114.4; Estimated Glomerular Filt Rate > 60; Glucose Fasting 95 mg/dL (60-99); Potassium 4.8 mmol/L (3.3-5.1); Sodium 143 mmol/L (135-145)
[2020-08-29 07:29] LABS: Vancomycin Trough 12.7 mcg/mL (10.0-20.0)
--- NOTE | 2020-08-29 08:11 | PM.PNORT ---
Subjective Subjective Date of Service: 08/29/20 Interval history: POD2 s/p left ankle OREN and infection. Pt. states his pain is managable. No overnight events. Denies SOB, chest pain, abd pain. Physical Exam Vital Signs: Vital Signs: Last Vital Signs Temp 97.3 F 08/29/20 03:08 Pulse 59 08/29/20 03:08 Resp 18 08/29/20 05:16 BP 114/64 08/29/20 03:08 Pulse Ox 93 08/29/20 03:08 Body Mass Index 36.8 Const: General: cooperative, healthy appearing and no acute distress Resp: Effort & Inspection: normal respiratory effort and able to speak in complete sentences Cardio: Rate: regular rate Peripheral pulses: Peripheral pulses 2+ throughout GI: Palpation (GI): Soft to palpation Skin: Lesions: no lesions Rashes: no rashes Extrem: Other: Left ankle no ecchymosis or redness. Prevena intact, dressing clean, dry, and intact. NVI Progress Note: A&P Assessment and plan (1) Painful orthopaedic hardware: Status: Acute Assessment and Plan: Continue pain mgmnt Continue Aspirin dvt ppx Continue PT for left ankle OREN Consult with Infectious disease ordered Awaiting culture results Dispo planning-Pending PT eval, pain mgmnt Fall Risk Details Current Medications: Current Medications Generic Name Dose Route Start Last Admin Trade Name Freq PRN Reason Stop Dose Admin Acetaminophen 650 mg 08/27/20 13:02 Acetaminophen 325 Mg Tablet PO Q6H PRN Pain, Mild (Pain Scale 1-3) Albuterol Sulfate 2.5 mg 08/27/20 08:28 Albuterol Sulfate (0.083%) 2.5 Mg/3 Ml Vial.Neb INHALE ONCE PRN Shortness of Breath/Wheezing Aspirin 325 mg 08/28/20 09:00 08/28/20 20:38 Aspirin 325 Mg Tablet PO 325 mg BID KENDALL Administration Celecoxib 200 mg 08/27/20 21:00 08/28/20 20:38 Celecoxib 200 Mg Capsule PO 200 mg BID KENDALL Administration Hydromorphone HCl 0.25 mg 08/27/20 13:02 08/29/20 05:16 Hydromorphone Hcl 0.5 Mg/0.5 Ml Syringe IVPUSH 0.25 mg Q4H PRN Administration Pain, Severe (Pain Scale 7-10) Dextrose/Sodium Chloride 1,000 mls @ 80 mls/hr 08/27/20 13:02 08/28/20 22:55 D51/2ns IVCONT 80 mls/hr .[id number] KENDALL Administration Vancomycin HCl 1,000 mg/ 270 mls @ 270 mls/hr 08/28/20 08:00 08/28/20 20:43 Sodium Chloride IV Infused Q12H KENDALL Infusion Naloxone HCl 0.5 mg 08/28/20 07:37 Naloxone Hcl 0.4 Mg/Ml Vial IVPUSH Q3H PRN Excessive sedation or RR < 8 Nicotine 21 mg 08/27/20 14:05 08/28/20 09:30 Nicotine 21 Mg Patch.Td24 TRANSDERMA 21 mg DAILY KENDALL Administration Ondansetron HCl 4 mg 08/27/20 13:02 08/29/20 02:13 Ondansetron Hcl 4 Mg/2 Ml Vial IVPUSH 4 mg Q8H PRN Administration Nausea and Vomiting Oxycodone HCl 10 mg 08/27/20 13:02 08/29/20 02:02 Oxycodone Hcl Immed Release 5 Mg Tablet PO 10 mg Q4H PRN Administration Pain, Moderate (Pain Scale 4-6 Oxycodone HCl 10 mg 08/27/20 21:00 08/28/20 20:38 Oxycodone Hcl Er 10 Mg Tab.Er.12h PO 10 mg BID KENDALL Administration Pharmacy Consult 1 each 08/27/20 14:03 Consult Rx Vancomycin Dosing MISCELLANE DAILY PRN Consult order Senna 17.2 mg 08/27/20 13:02 Sennosides 8.6 Mg Tablet PO BEDTIME PRN Constipation Sodium Chloride 3 ml 08/27/20 16:00 08/28/20 20:42 0.9 % Sodium Chloride Flush 3 Ml Syringe IVFLUSH 3 ml QSHIFT KENDALL Administration Time Spent With Patient Time: Total time spent is greater than 50% in coordination of care (as documented) at patient's floor/unit and/or counseling patient: Time with patient: less than 15 minutes
[2020-08-29] MEDS: Celecoxib 200 MG CAPSULE PO ×2 (08:23→21:12)
[2020-08-29] MEDS: vancomycin HCL 1,000 MG in 0.9 % Sodium Chloride 250 ML 270 MG IV ×2 (08:23→19:45)
[2020-08-29] MEDS: oxyCODONE HCl ER 10 MG TAB.ER.12H PO ×2 (08:23→21:13)
[2020-08-29] MEDS: Aspirin 325 MG TABLET PO ×2 (08:24→21:12)
[2020-08-29] MEDS: Nicotine 21 MG PATCH.TD24 TRANSDERMA (08:24)
[2020-08-29] MEDS: Dextrose 5 % and 0.45 % NaCl 1,000 ML 80 ML IVCONT (10:18)
[2020-08-29] MEDS: traMADoL HCL 50 MG TABLET PO (11:50)
--- NOTE | 2020-08-29 12:00 | PC.NURSE ---
order received for picc. at this time, this rn at bedside for picc consent and placement. pt aox3. skin wpd. rr even/unlabored. speaks in clear/full sentences. at this time, pt refusing to sign consent and have picc placed until im sedated pt states. almita song made aware and is contacting ordering physician. plan to reevaluate.
--- NOTE | 2020-08-29 12:41 | MHC.SHP ---
Pre-Procedural Eval Section A The patient is an INPATIENT: No Changes since office visit: Yes Patient answered all questions; No Cold of Flu in the past 2 weeks, No New Medical Problems and No Changes in Medication The History & Physical has been completed within 30 days and I have reviewed it.: Yes Section B Chief Complaint: Orthopedic Hardware Removal Allergies: Allergies Allergy/AdvReac Type Severity Reaction Status Date / Time codeine [CODEINE] Allergy Unknown PURITIS, Verified 08/20/20 14:06 HIVES, NAUSEA morphine [MORPHINE] Allergy Unknown PURITIS, Verified 08/20/20 14:06 HIVES, NAUSEA opium (anthroposophic) Allergy Unknown SENSATIVITY Verified 08/20/20 14:06 trazodone Allergy Unknown AMS Verified 08/20/20 14:06 zolpidem [Ambien] Allergy Unknown AMS Verified 08/20/20 14:06 Opium Allergy Unknown SENSATIVITY Uncoded 08/20/20 14:06 Plan I have reviewed the history and physical and performed a pertinent physical examination on my patient. No changes have occurred unless specified.
--- NOTE | 2020-08-29 12:41 | PM.OP ---
Brief Operative Note Date of Service: 08/27/20 Pre-op diagnosis: infected hardware left tibia Post-op diagnosis: same Procedure: removal of hardware left tibia Implants: none Surgeon: Ron Villegas MD Anesthesia: GETA Operations Manager: Sydnee Jara Estimated blood loss (mL): 150 IV fluids (mL): 1,000 Pathology: other Condition: stable Disposition: PACU
[2020-08-29] MEDS: LORazepam 2 MG/ML VIAL 1 MG IVPUSH (14:38)
--- NOTE | 2020-08-29 14:51 | MHC.CM.PN ---
PER CONVERSATION WITH ORTHO, PLAN IS FOR PICC AND 6 WEEKS IV ABX. CURRENTLY WAITING ID INPUT. TAYLA CAMACHOA MADE AWARE. ONCE RX AND FLUSH ARE COMPLETED, [facility] REFERRAL WILL BE STARTED.
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
--- NOTE | 2020-08-29 16:38 | P.PICC_ITS ---
PICC Line Insertion NPICC Diagnosis: ANKLE INFECTION Indication: MANAGER SALT ANTIBIOTICS Pertinent Labs: REVIEWED Technique: Following informed consent including risks, benefits and alternatives and using sterile technique including cap and mask, sterile gown, glove and drape, the RIGHT arm was prepped and draped in the usual sterile fashion of full barrier technique with CHG. Following completion of [place] Protocol the skin and soft tissues were anesthetized with 1% Lidocaine plain. Using ultrasound guidance, BASILIC vein access was obtained. Over an 0.018 wire through peel- away sheath, a SINGLE LUMEN, PASV, 4 ALGERIAN PICC line was positioned. Catheter length is 46 CM internal length, 0 CM external length, for a total trimmed length of 46 CM. The procedure was performed in S3-346. Tip verification was performed by John Amezcua with Shersrinivas 3CG. Tip located in SVC. Ultrasound was used to document vein patency and for needle entry. A formal ultrasound picture and cardiac rhythm strip was recorded. Vascular Crystal Syrup Maker has released the line for use and it is currently dressed with a StatLock, Tegaderm, and CHG disc. Verification has been performed for blood return and line patency. Arm Circumference: 35 CM Equipment: [employer] POWER PICC SOLO Catheter Type: SINGLE LUMEN, 4 ALGERIAN, PASV PICC Lot #: [id number]
[2020-08-29] MEDS: 0.9 % Sodium Chloride Flush 10 ML SYRINGE 5 ML IVFLUSH (18:37)
[2020-08-29] MEDS: 0.9 % Sodium Chloride Flush 3 ML SYRINGE IVFLUSH (18:37)
--- NOTE | 2020-08-29 18:52 | OP_ITS ---
SURGEON: Ron Villegas MD INDICATIONS: A 50-year-old gentleman who presented to my office with a skin breakdown and erythema or purulent discharge consistent with infected tibial hardware. He was consented to undergo removal of hardware. PREOPERATIVE DIAGNOSIS: Infected hardware, left tibia. POSTOPERATIVE DIAGNOSIS: Infected hardware, left tibia. PROCEDURE PERFORMED: Removal of hardware with irrigation and debridement, extended wound closure and placement of a negative pressure dressing. ESTIMATED BLOOD LOSS: 150 mL. COMPLICATIONS: None. ANESTHESIA: General. ASSISTANTS: SPECIMENS: FLUIDS: 1 L. PROCEDURE IN DETAIL: The patient was brought to the operating room, placed supine on the operative table and prepped and draped in standard sterile fashion. Time-out was called to identify proper site, proper procedure, proper surgeon. IV antibiotics per weight was administered. I began by insufflating the tourniquet to 300 mmHg without exsanguination. I then made incisions through the area of skin breakdown extending approximately 15 cm incision. The skin was macerated and there were open areas with sinus tracts. The hardware was immediately evident and I had no problem removing the screws and the plate. Once I used biplanar fluoroscopy to ensure that the hardware was removed. Once this was done, I took cultures both superficial and deep to the hardware and then IV antibiotics were administered. There was no evidence of bone infection. The bone was looked healthy. All the holes were curetted out and all fibrinous necrotic tissue was removed. I irrigated copiously and then closed with a horizontal mattress nylon. There was some mild tension on the center portion, where there had been a large draining sinus. Once therefore I used a negative pressure dressing, the Prevena, to close over the wound. Prior to this, the tourniquet was let down. There was no brisk bleeding. The patient was then extubated and brought to recovery room in stable condition. There were no known complications. SOUND SYSTEM INSTALLER: Estefani Herbert. MD ELVIRA Carpenter/PAPI / [id number]
[2020-08-30 03:53] VITALS: BP 105/59; PULSE 52; RESP 16; TEMP 36.6; O2SAT 95
[2020-08-30] MEDS: Dextrose 5 % and 0.45 % NaCl 1,000 ML 80 ML IVCONT (04:13)
[2020-08-30] MEDS: HYDROmorphone HCl 0.5 MG/0.5 ML SYRINGE 0.25 MG IVPUSH ×2 (04:25→21:14)
[2020-08-30 07:07] VITALS: BP 118/68; PULSE 53; RESP 16; TEMP 36.7; O2SAT 98
[2020-08-30 07:14] LABS: MANUAL DIFF FLAG NO
[2020-08-30 07:24] LABS: Basophils Percent Auto 0.5 % (0-2); Eosinophils Absolute Auto 0.2 X10*3/uL (0.0-0.4); Hematocrit 32.8 % (42-52); Hemoglobin 10.4 g/dl (14.0-18.0); Imm Gran Abs Auto 0.03 X10*3/uL (0.00-0.03); Imm Gran Pct Auto 0.5 % (0.0-0.4); Lymphocytes Absolute Auto 1.5 X10*3/uL (1.2-4.9); Lymphocytes Percent Auto 25.2 % (20-40); Mean Corpuscular HGB Conc 31.7 g/dl (31.0-36.0); Mean Corpuscular Volume 88.2 fL (80-98); Mean Platelet Volume 11.5 fL (9.4-12.4); Monocytes Absolute Auto 0.9 X10*3/uL (0.1-1.2); Monocytes Percent Auto 14.1 % (2-11); Neutrophils Absolute Auto 3.4 X10*3/uL (2.0-8.3); Neutrophils Percent Auto 55.7 % (45-73); Platelet Count 180 X10*3/uL (160-400); Red Blood Count 3.72 X10*6/uL (4.60-5.80); Red Cell Distribution Width 15.4 % (11.0-16.0)
[2020-08-30] MEDS: vancomycin HCL 1,000 MG in 0.9 % Sodium Chloride 250 ML 250 MG IV (07:38)
[2020-08-30] MEDS: traMADoL HCL 50 MG TABLET PO (07:38)
[2020-08-30 07:45] LABS: Anion Gap 10 (12-20); Blood Urea Nitrogen 14 mg/dL (9-16); Calcium 7.7 mg/dL (8.4-10.2); Carbon Dioxide 26 mmol/L (22-29); Chloride 109 mmol/L (96-108); Creatinine Clr Calc Pharmacy 124.1; Estimated Glomerular Filt Rate > 60; Glucose Fasting 89 mg/dL (60-99); Potassium 4.3 mmol/L (3.3-5.1); Sodium 141 mmol/L (135-145)
[2020-08-30] MEDS: 0.9 % Sodium Chloride Flush 10 ML SYRINGE 5 ML IVFLUSH ×3 (07:50→19:47)
[2020-08-30] MEDS: oxyCODONE HCl ER 10 MG TAB.ER.12H PO ×2 (09:02→19:45)
[2020-08-30] MEDS: Nicotine 21 MG PATCH.TD24 TRANSDERMA (09:02)
[2020-08-30] MEDS: Aspirin 325 MG TABLET PO ×2 (09:02→19:44)
[2020-08-30] MEDS: Celecoxib 200 MG CAPSULE PO ×2 (09:02→19:45)
--- NOTE | 2020-08-30 10:02 | PM.PNORT ---
Subjective Subjective Date of Service: 08/30/20 Principal diagnosis: OREN left ankle Interval history: pod 3 s/p OREN left ankle no overnight events , prevena intact, he is restless and wants to go home but understands we are awaiting cultures. Pain is tolerable. Physical Exam Vital Signs: Vital Signs: Last Vital Signs Temp 98.0 F 08/30/20 07:07 Pulse 53 08/30/20 07:07 Resp 16 08/30/20 07:07 BP 118/68 08/30/20 07:07 Pulse Ox 98 08/30/20 07:07 Body Mass Index 36.8 Const: General: cooperative, healthy appearing and no acute distress Resp: Effort & Inspection: normal respiratory effort and able to speak in complete sentences Cardio: Rate: regular rate Peripheral pulses: Peripheral pulses 2+ throughout GI: Palpation (GI): Soft to palpation Skin: General skin exam: no rashes or lesions noted Extrem: Other: left ankle prevena intact, no surrounding erythema or edema. sensation intact. Progress Note: A&P Assessment and plan (1) Painful orthopaedic hardware: Status: Acute Assessment and Plan: cont pain mgmnt cont iv abx-cont vanco trough cont prevena cultures pending-spoke with micro should be done in one hour dispo planning Fall Risk Details Current Medications: Current Medications Generic Name Dose Route Start Last Admin Trade Name Freq PRN Reason Stop Dose Admin Acetaminophen 650 mg 08/27/20 13:02 Acetaminophen 325 Mg Tablet PO Q6H PRN Pain, Mild (Pain Scale 1-3) Albuterol Sulfate 2.5 mg 08/27/20 08:28 Albuterol Sulfate (0.083%) 2.5 Mg/3 Ml Vial.Neb INHALE ONCE PRN Shortness of Breath/Wheezing Aspirin 325 mg 08/28/20 09:00 08/30/20 09:02 Aspirin 325 Mg Tablet PO 325 mg BID KENDALL Administration Celecoxib 200 mg 08/27/20 21:00 08/30/20 09:02 Celecoxib 200 Mg Capsule PO 200 mg BID KENDALL Administration Hydromorphone HCl 0.25 mg 08/27/20 13:02 08/30/20 04:25 Hydromorphone Hcl 0.5 Mg/0.5 Ml Syringe IVPUSH 0.25 mg Q4H PRN Administration Pain, Severe (Pain Scale 7-10) Dextrose/Sodium Chloride 1,000 mls @ 80 mls/hr 08/27/20 13:02 08/30/20 04:13 D51/2ns IVCONT 80 mls/hr .[id number] KENDALL Administration Vancomycin HCl 1,000 mg/ 270 mls @ 270 mls/hr 08/28/20 08:00 08/30/20 09:10 Sodium Chloride IV Infused Q12H KENDALL Infusion Naloxone HCl 0.5 mg 08/28/20 07:37 Naloxone Hcl 0.4 Mg/Ml Vial IVPUSH Q3H PRN Excessive sedation or RR < 8 Nicotine 21 mg 08/27/20 14:05 08/30/20 09:02 Nicotine 21 Mg Patch.Td24 TRANSDERMA 21 mg DAILY KENDALL Administration Ondansetron HCl 4 mg 08/27/20 13:02 08/29/20 02:13 Ondansetron Hcl 4 Mg/2 Ml Vial IVPUSH 4 mg Q8H PRN Administration Nausea and Vomiting Oxycodone HCl 10 mg 08/27/20 21:00 08/30/20 09:02 Oxycodone Hcl Er 10 Mg Tab.Er.12h PO 10 mg BID KENDALL Administration Pharmacy Consult 1 each 08/27/20 14:03 Consult Rx Vancomycin Dosing MISCELLANE DAILY PRN Consult order Senna 17.2 mg 08/27/20 13:02 Sennosides 8.6 Mg Tablet PO BEDTIME PRN Constipation Sodium Chloride 3 ml 08/27/20 16:00 08/30/20 07:50 0.9 % Sodium Chloride Flush 3 Ml Syringe IVFLUSH Not Given QSHIFT KENDALL Sodium Chloride 5 ml 08/29/20 16:30 08/30/20 07:50 0.9 % Sodium Chloride Flush 10 Ml Syringe IVFLUSH 5 ml TID KENDALL Administration Tramadol HCl 50 mg 08/29/20 10:27 08/30/20 07:38 Tramadol Hcl 50 Mg Tablet PO 50 mg Q4H PRN Administration Pain, Moderate (Pain Scale 4-6 Time Spent With Patient Time: Total time spent is greater than 50% in coordination of care (as documented) at patient's floor/unit and/or counseling patient: Time with patient: 15 - 24 minutes
[2020-08-30] MEDS: HYDROmorphone HCl 2 MG TABLET PO ×3 (11:17→23:34)
[2020-08-30 11:42] LABS: Vancomycin Trough 23.1 mcg/mL (10.0-20.0)
[2020-08-30 12:00] VITALS: BP 118/57; PULSE 60; RESP 19; TEMP 36.9; O2SAT 97
[2020-08-30] MEDS: LORazepam 0.5 MG TABLET PO (13:26)
[2020-08-30 15:48] VITALS: BP 138/69; PULSE 62; RESP 14; TEMP 36.7; O2SAT 98
[2020-08-30 19:04] VITALS: BP 132/72; PULSE 69; RESP 14; TEMP 37.3; O2SAT 97
[2020-08-30] MEDS: vancomycin HCL 1,000 MG in 0.9 % Sodium Chloride 250 ML 270 MG IV (19:45)
[2020-08-30] MEDS: hydrOXYzine HCL 50 MG TABLET PO (22:05)
[2020-08-30 23:50] VITALS: BP 141/73; PULSE 59; RESP 18; TEMP 36.6; O2SAT 98
--- NOTE | 2020-08-31 00:08 | PC.NURSE ---
Patient complained to the nurse about not receiving a lunch or dinner tray. Pt was offered a sandwich multiple times to which he refused. He stated I want to file a formal complaint, and I'm about to leave at this point. Nursing roundhouse supervisor, Dionna Green, was notified multiple times to address the issue and advise against leaving AMA. PT still refusing to eat anything offered at this time. Will continue to reassess.
[2020-08-31 07:07] VITALS: BP 146/77; PULSE 55; RESP 16; TEMP 36.4; O2SAT 99
[2020-08-31 07:40] LABS: MANUAL DIFF FLAG NO
[2020-08-31 07:49] LABS: Basophils Percent Auto 0.6 % (0-2); Eosinophils Absolute Auto 0.2 X10*3/uL (0.0-0.4); Eosinophils Percent Auto 4.8 % (0-4); Hematocrit 35.8 % (42-52); Hemoglobin 11.1 g/dl (14.0-18.0); Imm Gran Abs Auto 0.01 X10*3/uL (0.00-0.03); Imm Gran Pct Auto 0.2 % (0.0-0.4); Lymphocytes Absolute Auto 1.9 X10*3/uL (1.2-4.9); Mean Corpuscular Hemoglobin 27.4 pg (27.0-33.0); Mean Corpuscular Volume 88.4 fL (80-98); Mean Platelet Volume 11.5 fL (9.4-12.4); Monocytes Absolute Auto 0.6 X10*3/uL (0.1-1.2); Monocytes Percent Auto 12.3 % (2-11); Neutrophils Absolute Auto 2.3 X10*3/uL (2.0-8.3); Neutrophils Percent Auto 45.1 % (45-73); Platelet Count 188 X10*3/uL (160-400); Red Blood Count 4.05 X10*6/uL (4.60-5.80); Red Cell Distribution Width 15.3 % (11.0-16.0)
[2020-08-31 08:20] LABS: Anion Gap 13 (12-20); Blood Urea Nitrogen 11 mg/dL (9-16); Calcium 8.2 mg/dL (8.4-10.2); Carbon Dioxide 28 mmol/L (22-29); Chloride 108 mmol/L (96-108); Creatinine Clr Calc Pharmacy 127.2; Estimated Glomerular Filt Rate > 60; Glucose Fasting 85 mg/dL (60-99); Sodium 144 mmol/L (135-145)
[2020-08-31] MEDS: HYDROmorphone HCl 0.5 MG/0.5 ML SYRINGE 0.25 MG IVPUSH (08:20)
[2020-08-31] MEDS: 0.9 % Sodium Chloride Flush 10 ML SYRINGE 5 ML IVFLUSH ×3 (08:22→20:06)
[2020-08-31] MEDS: vancomycin HCL 1,000 MG in 0.9 % Sodium Chloride 250 ML 270 MG IV ×2 (08:22→19:59)
[2020-08-31] MEDS: oxyCODONE HCl ER 10 MG TAB.ER.12H PO ×2 (08:26→19:59)
[2020-08-31] MEDS: Aspirin 325 MG TABLET PO ×2 (08:26→19:59)
[2020-08-31] MEDS: Celecoxib 200 MG CAPSULE PO ×2 (08:26→19:59)
[2020-08-31] MEDS: Nicotine 21 MG PATCH.TD24 TRANSDERMA (08:26)
[2020-08-31 11:55] VITALS: BP 139/68; PULSE 53; RESP 15; TEMP 36.9; O2SAT 98
[2020-08-31] MEDS: HYDROmorphone HCl 2 MG TABLET PO ×2 (13:14→17:19)
[2020-08-31] MEDS: hydrOXYzine HCL 50 MG TABLET PO (13:14)
[2020-08-31 16:00] VITALS: BP 119/65; PULSE 46; RESP 14; TEMP 36.8; O2SAT 97
[2020-08-31 19:09] VITALS: BP 144/77; PULSE 59; RESP 20; TEMP 36.8; O2SAT 97
--- NOTE | 2020-08-31 19:47 | PM.EVENT ---
Event Note Date of Service: 08/31/20 Event Note: awaiting final input from ID for IV abx recommendation
[2020-08-31] MEDS: Piperacillin Sodium/Tazobactam 3.375 GM in 0.9 % Sodium Chloride 50 ML IV (23:17)
[2020-09-01] VITALS: BP 137/63; PULSE 50; RESP 18; TEMP 37; O2SAT 95
[2020-09-01 04:00] VITALS: BP 146/74; PULSE 50; RESP 18; TEMP 36.6; O2SAT 98
[2020-09-01] MEDS: Piperacillin Sodium/Tazobactam 3.375 GM in 0.9 % Sodium Chloride 50 ML IV (04:53)
[2020-09-01 07:06] LABS: MANUAL DIFF FLAG NO
[2020-09-01 07:13] LABS: Basophils Percent Auto 0.7 % (0-2); Eosinophils Absolute Auto 0.4 X10*3/uL (0.0-0.4); Hematocrit 34.5 % (42-52); Hemoglobin 11.1 g/dl (14.0-18.0); Imm Gran Abs Auto 0.02 X10*3/uL (0.00-0.03); Imm Gran Pct Auto 0.3 % (0.0-0.4); Lymphocytes Absolute Auto 1.7 X10*3/uL (1.2-4.9); Lymphocytes Percent Auto 29.7 % (20-40); Mean Corpuscular HGB Conc 32.2 g/dl (31.0-36.0); Mean Corpuscular Volume 87.1 fL (80-98); Mean Platelet Volume 11.5 fL (9.4-12.4); Monocytes Absolute Auto 0.6 X10*3/uL (0.1-1.2); Monocytes Percent Auto 9.4 % (2-11); Neutrophils Absolute Auto 3.2 X10*3/uL (2.0-8.3); Neutrophils Percent Auto 53.9 % (45-73); Platelet Count 201 X10*3/uL (160-400); Red Blood Count 3.96 X10*6/uL (4.60-5.80); Red Cell Distribution Width 14.9 % (11.0-16.0); White Blood Count 5.9 X10*3/uL (4.8-10.8)
[2020-09-01 07:18] VITALS: BP 116/57; PULSE 51; RESP 17; TEMP 36.7; O2SAT 96
[2020-09-01 07:30] LABS: Anion Gap 12 (12-20); Blood Urea Nitrogen 15 mg/dL (9-16); Calcium 8.2 mg/dL (8.4-10.2); Carbon Dioxide 27 mmol/L (22-29); Chloride 108 mmol/L (96-108); Creatinine Clr Calc Pharmacy 110.6; Estimated Glomerular Filt Rate > 60; Glucose Fasting 92 mg/dL (60-99); Potassium 4.6 mmol/L (3.3-5.1); Sodium 142 mmol/L (135-145)
[2020-09-01 07:37] LABS: Vancomycin Trough 14.3 mcg/mL (10.0-20.0)
[2020-09-01] MEDS: Nicotine 21 MG PATCH.TD24 TRANSDERMA (08:20)
[2020-09-01] MEDS: Celecoxib 200 MG CAPSULE PO ×2 (08:20→20:56)
[2020-09-01] MEDS: HYDROmorphone HCl 2 MG TABLET PO (08:20)
[2020-09-01] MEDS: Aspirin 325 MG TABLET PO ×2 (08:20→20:56)
[2020-09-01] MEDS: vancomycin HCL 1,000 MG in 0.9 % Sodium Chloride 250 ML 270 MG IV ×2 (08:20→20:01)
[2020-09-01] MEDS: oxyCODONE HCl ER 10 MG TAB.ER.12H PO ×2 (08:20→20:56)
[2020-09-01] MEDS: 0.9 % Sodium Chloride Flush 10 ML SYRINGE 5 ML IVFLUSH ×3 (08:21→20:58)
[2020-09-01] MEDS: 0.9 % Sodium Chloride Flush 3 ML SYRINGE IVFLUSH ×2 (08:21→15:29)
[2020-09-01] MEDS: levoFLOXacin 750 MG TABLET PO (09:37)
[2020-09-01] MEDS: metroNIDAZOLE 500 MG TABLET PO (09:37)
[2020-09-01 11:40] VITALS: BP 158/83; PULSE 67; RESP 17; TEMP 36.7; O2SAT 94
--- NOTE | 2020-09-01 14:16 | PM.DS ---
DS: Providers Provider Date of Service: 09/01/20 Date of admission: 08/27/20 08:28 Primary care physician: Doc Cortes MD Consults: 08/27/20 13:02 Consult to Hospitalist Routine Consulting Provider: Hospitalist Reason For Exam: h/o ETOH abuse post op medical management 08/29/20 07:14 Consult to Infectious Diseases Routine Consulting Provider: Gwen Peterson Reason for consultation: left ankle infection s/p hardware removal DS: Diagnosis Discharge Diagnosis (1) Painful orthopaedic hardware: Status: Acute Problem details: Mr Munguia is a 50 yo gentleman who was seen in our office for ongoing left ankle pain and evidence of deep infection . There was a draining wound and eschar over the plate that has been present for months and has responded incompletely to antibiotics; therefore he was booked for OREN let ankle. DS: Medications Discharge Medications Home Medications: Home Medications Medication Instructions Recorded Confirmed clonidine HCl 0.1 mg tablet 0.1 mg PO BEDTIME 07/30/20 08/20/20 Previous Rx's Medication Instructions Recorded acetaminophen 650 mg PO Q6H PRN 30 Days #240 tab 09/01/20 aspirin 325 mg PO BID 30 Days #60 tab 09/01/20 hydromorphone 2 mg PO Q4H PRN 7 Days #42 tab 09/01/20 levofloxacin 750 mg PO Q24H 14 Days #14 tab 09/01/20 metronidazole 500 mg PO Q12H 14 Days #28 tab 09/01/20 sennosides [Senna Lax] 17.2 mg PO BEDTIME PRN 30 Days #60 09/01/20 tab vancomycin in 0.9 % sodium chl 1.5 g IV Q12H 42 Days #44188 ml 09/01/20 DS: Summary Hospital Course Hospital Course: The patient underwent a successful Removal of hardware with irrigation and debridement, extended wound closure and placement of a negative pressure dressing. Cultures were taken introspectively. He was transferred to PACU and then to the floor to recover. During their stay, their vitals were stable, afebrile at 98.0. Labs were unremarkable, H/H 11.1/34.5. POD 1 He was started on ASA 325 mg tabs bid for DVT ppx, they also received PT . He was placed on Vancomycin 1500mg q12 hrs. Consultation By Dr Kelli Peterson who recommended IV vancomycin q12 x6 weeks, Levaquin 750mg qd x2 weeks and Flagyl 500mg bid x2 weeks. POD 5 Vanco trough 14.1. Prior to discharge, Chavez changed over to home unit. Instructed to keep dressing clean and dry at all times and if any concerns to contact our office. He will follow up as scheduled 09/03 @2:00pm. Time Spent with Patient Time attestation: Total time spent providing and/or coordinating discharge services: Discharge coordination time: Greater than 30 minutes Physical Exam Vital Signs: Vital Signs: Last Vital Signs Temp 98.0 F 09/01/20 11:40 Pulse 67 09/01/20 11:40 Resp 17 09/01/20 11:40 BP 158/83 H 09/01/20 11:40 Pulse Ox 94 09/01/20 11:40 Body Mass Index 36.8 Const: General: cooperative, healthy appearing and no acute distress Resp: Effort & Inspection: normal respiratory effort and able to speak in complete sentences Cardio: Rate: regular rate Peripheral pulses: Peripheral pulses 2+ throughout GI: Palpation (GI): Soft to palpation Skin: General skin exam: no rashes or lesions noted Extrem: Other: left ankle prevena intact. No erythema or edema. calf supple non tender. pulses present. DS: Data Data Completed and Pending Completed studies during hospitalization [Text1]: Gram stain Final 08/28/20-828 Gram stain results: No polys 1+ Gram-positive cocci 1+ Gram-negative rods Routine Culture Final 09/01/20-1116 Organism 1 Streptococcus anginosus Quantity 3+ Organism 2 Enterococcus faecalis Quantity 2+ Organism 3 Granulicatella adiacens Quantity 4+ S anginosu E faecalis M.I.C. RX M.I.C. RX --------- --- --------- --- Ampicillin Strep <=0.25 S Ampicillin <=2 S Ceftriaxone 0.5 S Penicillin-G 0.12 S Vancomycin 2 S Vancomycin (STREP) 0.5 S Anaerobic Culture Final 08/31/20-1546 Organism 1 Peptococcus anaerobius Quantity 4+ B-Lac Susceptibility Beta-lactamase not produced; suggests PEN/AMP susceptibility Organism 2 Anaerococcus prevotii Quantity 4+ B-Lac Susceptibility Beta-lactamase not produced; suggests PEN/AMP susceptibility Organism 3 Campylobacter ureolyticus Quantity 4+ B-Lac Susceptibility Beta-lactamase not produced; suggests PEN/AMP susceptibility Organism 4 Gram negative gregg Quantity 2+ B-Lac Susceptibility Beta-lactamase was produced; suggests PEN/AMP resistance ORGANISM #4(GRAM NEG GREGG)IDENTIFICATION= BACTEROIDES PYOGENES Labs on day of discharge: Laboratory Results - last 24 hr 09/01/20 09/01/20 09/01/20 06:52 06:52 06:52 WBC 5.9 RBC 3.96 L Hgb 11.1 L Hct 34.5 L MCV 87.1 MCH 28.0 MCHC 32.2 RDW 14.9 Plt Count 201 MPV 11.5 Immature Gran % (Auto) 0.3 Neut % (Auto) 53.9 Lymph % (Auto) 29.7 [place] % (Auto) 9.4 Eos % (Auto) 6.0 H Baso % (Auto) 0.7 Lymph # (Auto) 1.7 [place] # (Auto) 0.6 Eos # (Auto) 0.4 Baso # (Auto) 0.0 Abs Immat Gran (auto) 0.02 Absolute Neuts (auto) 3.2 Absolute Nucleated RBC 0.000 Nucleated RBC % (auto) 0.0 Sodium 142 Potassium 4.6 Chloride 108 Carbon Dioxide 27 Anion Gap 12 BUN 15 Creatinine 0.92 Estim Creat Clear Calc 110.6 Estimated GFR > 60 Fasting Glucose 92 Calcium 8.2 L Vancomycin Trough 14.3 Discharge Plan Discharge Patient Disposition: Home, Self-Care Referrals: Luz Maya PA-C [Physician Financial Writer] - (09/03/20 2:00) Discharge Medications: New metronidazole 500 mg Tablet 500 mg PO Q12H 14 Days Qty: 28 RF: 0 levofloxacin 750 mg Tablet 750 mg PO Q24H 14 Days Qty: 14 RF: 0 sennosides [Senna Lax] 8.6 mg Tablet 17.2 mg PO BEDTIME PRN (Reason: Constipation) 30 Days Qty: 60 RF: 0 acetaminophen 325 mg Tablet 650 mg PO Q6H PRN (Reason: Pain, Mild (Pain Scale 1-3)) 30 Days Qty: 240 RF: 0 aspirin 325 mg Tablet 325 mg PO BID 30 Days Qty: 60 RF: 0 hydromorphone 2 mg Tablet 2 mg PO Q4H PRN (Reason: Pain, Moderate (Pain Scale 4-6) 7 Days Qty: 42 RF: 0 vancomycin in 0.9 % sodium chl 1.5 gram/500 mL solution 1.5 g IV Q12H 42 Days Qty: 48875 RF: 0 Continued clonidine HCl 0.1 mg tablet 0.1 mg PO BEDTIME RF: 0 Discontinued cephalexin [Keflex] 500 mg capsule 500 mg PO Q6H 7 Days Qty: 28 RF: 0 sulfamethoxazole-trimethoprim [Bactrim DS] 800-160 mg tablet 1 tab PO Q12H 7 Days Qty: 14 RF: 0 tramadol 50 mg tablet 50 mg PO Q6H PRN (Reason: pain) 3 Days Qty: 9 RF: 0 Discharge Orders: Discharge Order (Routine); Ordered 09/01/20 Ordered By: Luz Maya Diet: regular diet Activity on Discharge: Use cane or walker Stand Alone Forms: Patient Portal Discharge page Activity Restrictions/Additional Instructions: Keep prevena intact and dry at all times elevate follow up with Orthopedics 09/03 @2pm Visit Report Forms: Patient Portal Discharge page Care Plan Goals: Restore function left ankle Health Concerns: none Plan of Treatment: Physical Therapy Pain management DVT prophylaxis
[2020-09-01 15:14] VITALS: BP 167/80; PULSE 67; RESP 14; TEMP 37; O2SAT 98
--- NOTE | 2020-09-01 16:23 | MHC.CM.PN ---
rm 346, faraz coffman; dc plan was to dc home c iv vanco x6 wks tomorrow. however pt is threatening to leave [facility]. new plan: pt is being dc'd this evening p his 8pm vanco dose. he will miss his morning dose but resume the vanco course tomorrow afternoon. [facility] will deliver the iv vanco by mid day tomorrow and [facility] will see him as well. corrections to flush order sheet need to be made and resent to [facility] in a.m. rn caring for patient and P.A. are aware of this situation and change to dc plan. cm to cont. to follow.
[2020-09-01 18:56] VITALS: BP 154/74; PULSE 60; RESP 14; TEMP 36.6; O2SAT 97
== END 2020-09-01 21:40 | disposition home or self-care (01) | DRG 465 ==
LOC: HO.SSSA 08:34 → HO.S3 09:33
PROVIDERS: Physician Assistant; Physician Assistant Medical; Admitting Provider Orthopaedic Surgery; PCP Internal Medicine; Visit Provider Orthopaedic Surgery
DX: T84.7XXA Infection and inflammatory reaction due to other internal orthopedic prosthetic devices, implants and grafts, initial encounter (principal); F41.9 Anxiety disorder, unspecified; F32.9 Major depressive disorder, single episode, unspecified; F10.11 Alcohol abuse, in remission; Z87.820 Personal history of traumatic brain injury; Z98.84 Bariatric surgery status; Z20.822 Contact with and (suspected) exposure to COVID-19; Z98.52 Vasectomy status; Z88.5 Allergy status to narcotic agent; Z79.82 Long term (current) use of aspirin; Z79.899 Other long term (current) drug therapy
CPT/HCPCS: 36415; 36573; 80048; 80202; 85025; 85027; 87071; 87073; 87076; 87077; 87185; 87186; 87205; 87635; 97116; 97162; C1751; J0131; J0690; J1100; J1170; J2060; J2250; J2405; J2543; J3010; J3370

== ENCOUNTER → 2020-09-04 10:36 | Outpatient (BNVA) | payer MEDICARE, MEDICAID, SELFPAY | PROVIDERS: PCP Internal Medicine; Visit Provider Physician Assistant | DX: Z98.890 Other specified postprocedural states (principal) | CPT/HCPCS: 99212 ==

== ENCOUNTER 2020-09-05 13:13 | Outpatient (REF) | payer MEDICARE, MEDICAID, SELFPAY ==
[2020-09-05 14:12] LABS: Vancomycin Random 29.6 mcg/mL (15-20)
== END 2020-09-05 13:14 | disposition home or self-care (01) ==
LOC: HO.LNP 13:13
PROVIDERS: Visit Provider Internal Medicine
DX: T84.7XXA Infection and inflammatory reaction due to other internal orthopedic prosthetic devices, implants and grafts, initial encounter (principal)
CPT/HCPCS: 80202

== ENCOUNTER 2020-09-08 10:27 | Outpatient (REF) | payer MEDICARE, MEDICAID, SELFPAY ==
[2020-09-08 10:30] LABS: MANUAL DIFF FLAG NO
[2020-09-08 10:35] LABS: Basophils Absolute Auto 0.1 X10*3/uL (0.0-0.2); Basophils Percent Auto 0.9 % (0-2); Eosinophils Absolute Auto 0.4 X10*3/uL (0.0-0.4); Eosinophils Percent Auto 5.4 % (0-4); Hemoglobin 11.6 g/dl (14.0-18.0); Imm Gran Abs Auto 0.02 X10*3/uL (0.00-0.03); Imm Gran Pct Auto 0.3 % (0.0-0.4); Lymphocytes Absolute Auto 2.6 X10*3/uL (1.2-4.9); Lymphocytes Percent Auto 33.2 % (20-40); Mean Corpuscular HGB Conc 31.4 g/dl (31.0-36.0); Mean Corpuscular Hemoglobin 27.6 pg (27.0-33.0); Mean Corpuscular Volume 88.1 fL (80-98); Monocytes Absolute Auto 0.6 X10*3/uL (0.1-1.2); Monocytes Percent Auto 7.9 % (2-11); Neutrophils Absolute Auto 4.1 X10*3/uL (2.0-8.3); Neutrophils Percent Auto 52.3 % (45-73); Platelet Count 232 X10*3/uL (160-400); Red Cell Distribution Width 15.2 % (11.0-16.0); White Blood Count 7.8 X10*3/uL (4.8-10.8)
[2020-09-08 11:30] LABS: Anion Gap 12 (12-20); Blood Urea Nitrogen 10 mg/dL (9-16); Calcium 7.8 mg/dL (8.4-10.2); Carbon Dioxide 24 mmol/L (22-29); Chloride 106 mmol/L (96-108); Estimated Glomerular Filt Rate > 60; Glucose Random 113 mg/dL (60-115); Potassium 4.5 mmol/L (3.3-5.1); Sodium 137 mmol/L (135-145)
[2020-09-08 16:27] LABS: Vancomycin Trough 6.3 mcg/mL (10.0-20.0)
== END 2020-09-08 10:28 | disposition home or self-care (01) ==
LOC: HO.LNP 10:27
PROVIDERS: Visit Provider Internal Medicine
DX: T84.7XXA Infection and inflammatory reaction due to other internal orthopedic prosthetic devices, implants and grafts, initial encounter (principal)
CPT/HCPCS: 80048; 80202; 85025

== ENCOUNTER → 2020-09-11 12:32 | Outpatient (BNVA) | payer MEDICARE, MEDICAID, SELFPAY | PROVIDERS: Visit Provider Physician Assistant | DX: Z47.89 Encounter for other orthopedic aftercare (principal); T81.89XA Other complications of procedures, not elsewhere classified, initial encounter; Z98.890 Other specified postprocedural states | CPT/HCPCS: 99212 ==

== ENCOUNTER 2020-09-12 10:20 | Outpatient (REF) | payer MEDICARE, MEDICAID, SELFPAY ==
[2020-09-12 11:27] LABS: Vancomycin Trough 27.7 mcg/mL (10.0-20.0)
== END 2020-09-12 10:21 | disposition home or self-care (01) ==
LOC: HO.LNP 10:20
PROVIDERS: Visit Provider Internal Medicine
DX: T84.7XXA Infection and inflammatory reaction due to other internal orthopedic prosthetic devices, implants and grafts, initial encounter (principal)
CPT/HCPCS: 80202

== ENCOUNTER → 2020-09-15 12:43 | Outpatient (BNVA) | payer MEDICARE, MEDICAID, SELFPAY | PROVIDERS: PCP Internal Medicine; Visit Provider Physician Assistant | DX: Z98.890 Other specified postprocedural states (principal) | CPT/HCPCS: 99212 ==

== ENCOUNTER 2020-09-23 13:01 | Outpatient (RCR) | payer MEDICARE, MEDICAID, SELFPAY | END 2020-10-08 09:59 | disposition home or self-care (01) | LOC: HO.WCC 13:01 | PROVIDERS: PCP Internal Medicine; Visit Provider Physician Assistant | DX: T81.31XD Disruption of external operation (surgical) wound, not elsewhere classified, subsequent encounter (principal); F17.210 Nicotine dependence, cigarettes, uncomplicated; Z87.81 Personal history of (healed) traumatic fracture; Z71.6 Tobacco abuse counseling | CPT/HCPCS: 99212; 99214 ==

== ENCOUNTER 2020-09-26 15:00 | Outpatient (REF) | payer MEDICARE, MEDICAID, SELFPAY ==
--- NOTE | ~2020-09-26 | XR_ITS ---
EXAMINATION: XR TIBIA AND FIBULA, LEFT CLINICAL INFORMATION: Left wound COMPARISON: Prior examinations most recent x-ray August 21, 2020 and intraoperative images August 29, 2020 TECHNIQUE: AP and lateral views of the left tibia and fibula were obtained. FINDINGS: The previously noted hardware has been removed with multiple post tracks noted. Osseous density noted along the syndesmosis as before. Cortical thickening noted medially as before There is no air in the soft tissues. There is no acute fracture. There is no gas in the soft tissues or conspicuous soft tissue defect XR/XR tibia fibula LT 2V IMPRESSION: Postoperative changes left tibia No definite soft tissue defect or ulceration. No gas in the soft tissues.
== END 2020-09-26 15:01 | disposition home or self-care (01) ==
LOC: HO.XRAY 15:00
PROVIDERS: PCP Internal Medicine; Visit Provider Physician Assistant
DX: L97.829 Non-pressure chronic ulcer of other part of left lower leg with unspecified severity (principal)
CPT/HCPCS: 73590

== ENCOUNTER → 2020-09-30 13:16 | Outpatient (BNVA) | payer MEDICARE, MEDICAID, SELFPAY | PROVIDERS: PCP Internal Medicine; Visit Provider Physician Assistant | DX: T84.629D Infection and inflammatory reaction due to internal fixation device of unspecified bone of leg, subsequent encounter (principal) | CPT/HCPCS: 99212 ==

== ENCOUNTER 2020-12-16 12:36 | Inpatient (IN) | payer MEDICARE, MEDICAID, SELFPAY ==
[2020-12-16] VITALS (8 sets, daily range): BP systolic 131–136; BP diastolic 62–84; PULSE 62–94; RESP 16–24; TEMP 36.4–36.7; O2SAT 97–98; BMI 50.8
--- NOTE | 2020-12-16 12:41 | ECG_ITS ---
Test Reason : OVERRDOSE Blood Pressure : / mmHG Vent. Rate : 058 BPM Atrial Rate : 058 BPM P-R Int : 144 ms QRS Dur : 090 ms QT Int : 450 ms P-R-T Axes : 033 024 025 degrees QTc Int : 441 ms Sinus bradycardia Otherwise normal ECG When compared with ECG of 09-SEP-2019 20:51, No significant change was found Referred By: Shira Aguayo Electronically Signed By:Jameson Quispe
--- NOTE | 2020-12-16 12:42 | ED.OVERDOSE ---
HPI - Overdose General Chief Complaint: Psychiatric Symptoms Stated Complaint: INTENTIONAL OVERDOSE ON LORAZEPAM Time Seen by Provider: 12/16/20 12:40 Source: patient and EMS Mode of arrival: EMS Limitations: other (agitated and yelling) History of Present Illness complaint: intentional overdose Onset (ago): hour(s) (1) Timing confirmed by: other (patient and friend) Substance Ingested ativan 36mg : Strength of Substance: 1 Number of Pills Ingested: 36 Total Dose: 36 Intent: unwilling to say How Overdose Was Discovered: called family/friend Associated symptoms: depression Treatments Prior to Arrival: none Related Data Home Medications Medication Instructions Recorded Confirmed citalopram 1 tab PO DAILY 12/16/20 12/16/20 clonidine HCl 1 tab PO BEDTIME 12/16/20 12/16/20 Previous Rx's Medication Instructions Recorded acetaminophen 650 mg PO Q6H PRN 30 Days #240 tab 09/01/20 aspirin 325 mg PO BID 30 Days #60 tab 09/01/20 lorazepam 1 mg tablet 1 mg PO Q8H PRN #60 tab 12/08/20 Allergies Allergy/AdvReac Type Severity Reaction Status Date / Time codeine [CODEINE] Allergy Unknown PURITIS, Verified 12/08/20 09:42 HIVES, NAUSEA morphine [MORPHINE] Allergy Unknown PURITIS, Verified 12/08/20 09:42 HIVES, NAUSEA opium (anthroposophic) Allergy Unknown SENSATIVITY Verified 12/08/20 09:42 trazodone Allergy Unknown AMS Verified 12/08/20 09:42 zolpidem [Ambien] Allergy Unknown AMS Verified 12/08/20 09:42 Opium Allergy Unknown SENSATIVITY Uncoded 08/20/20 14:06 Review of Systems Review of Systems: ROS unable to be obtained due to patient being uncooperative [facility] Past Medical History Source: old records reviewed Medical History Anxiety Depression Foot pain History of alcohol abuse History of seizure Hx of traumatic brain injury Insomnia Multiple lipomas Panic disorder PTSD (post-traumatic stress disorder) Smoker Tobacco dependence Surgical History History of ankle surgery History of gastric bypass History of vasectomy Family History Family History Father No problems noted. Mother No problems noted. Social History Social History Are you a primary account executive healthcare to a significant other at home: No Do you presently have visiting nurse or other home services: No Alcohol intake: former Cigarette Packs Per Day: 1.5 Cigarettes Per Day: 30.0 Substance Use Type: Prescription Drugs Last Used Substance: Just Prior to Admission Advance Directives: Yes Advance Directives on File: Yes Advance Directives Date on File: 09/02/20 service: No Current occupational status: unemployed and disabled Current occupation: right handed Physical Exam Vital Signs: Vital Signs: Last Vital Signs Temp 98.0 F 12/16/20 15:03 Pulse 62 12/16/20 15:03 Resp 16 12/16/20 15:03 BP 131/75 12/16/20 15:03 Pulse Ox 98 12/16/20 15:03 Body Mass Index 50.8 LIMITED EXAM DUE TO AGITATION Appearance: Alert. Oriented X3. Mild acute distress. agitated, aggressive, I do not want to be here, I wanted to sleep. Eyes: Pupils equal, round and reactive to light. ENT: Pharynx normal. Neck: Normal inspection. Neck supple. CVS: Pulses normal. Respiratory: No respiratory distress. Abdomen: Soft no obvious trauma Skin: Skin warm and dry. Normal skin color. Normal skin turgor. Extremities: No lower extremity edema. No calf ttp Neuro: Oriented X 3. No motor deficit. No sensory deficit. Psych: agitated, yelling, I hate this hospital, I didn't want to come here, I have PTSD. Course Course Course Narrative: pateint has been observed x 2 hours in the ED no signs of sedation will not provide UA at this time doubt large ingestion - okay to send to pod for his safety Utox negative for benzos Physician observation started at 315pm. Patient placed in physician observation because the patient needed more time for reported ingestion and to be evaluated by [facility] for the need for psych admission. At the time observation was started the patient's vitals were stable, patient is alert and oriented but still agitated, Neuro: nonfocal, CV RRR, Lungs clear signed out to Dr. Low pending further workup MDM - Overdose MDM Narrative Medical decision making narrative: 50 yo male with ingestion of 36mg ativan unknown attempt but suspect SI at this time he is agitated, section 12 signed, he is not somnolent, labs, EKG, charcoal offered but he is initially refusing, N consult when medically cleared Lab Data Result diagrams: 12/16/20 13:38 12/16/20 13:38 Labs: Lab Results 12/16/20 12/16/20 12/16/20 Range/Units 13:38 13:38 13:38 WBC 5.8 (4.8-10.8) X10*3/uL RBC 5.18 D (4.60-5.80) X10*6/uL Hgb 14.5 D (14.0-18.0) g/dl Hct 46.0 D (42-52) % MCV 88.8 (80-98) fL MCH 28.0 (27.0-33.0) pg MCHC 31.5 (31.0-36.0) g/dl RDW 16.7 H (11.0-16.0) % Plt Count 192 (160-400) X10*3/uL MPV 11.5 (9.4-12.4) fL Immature Gran % (Auto) 0.2 (0.0-0.4) % Neut % (Auto) 49.4 (45-73) % Lymph % (Auto) 33.2 (20-40) % [place] % (Auto) 8.0 (2-11) % Eos % (Auto) 8.0 H (0-4) % Baso % (Auto) 1.2 (0-2) % Lymph # (Auto) 1.9 (1.2-4.9) X10*3/uL [place] # (Auto) 0.5 (0.1-1.2) X10*3/uL Eos # (Auto) 0.5 H (0.0-0.4) X10*3/uL Baso # (Auto) 0.1 (0.0-0.2) X10*3/uL Abs Immat Gran (auto) 0.01 (0.00-0.03) X10*3/uL Absolute Neuts (auto) 2.9 (2.0-8.3) X10*3/uL Absolute Nucleated RBC 0.000 (0.0-0.012) X10*3/uL Nucleated RBC % (auto) 0.0 (0.0-0.2) /100WBC PT 13.3 H (10.8-13.0) SEC INR 1.1 (0.9-1.1) APTT 34.9 (24.1-38.0) SEC VBG pH (7.32-7.43) VBG pCO2 mmHg VBG pO2 mmHg VBG HCO3 (22-26) mmol/L VBG O2 Saturation % VBG Base Excess mmol/L Sodium 143 (135-145) mmol/L Potassium 4.0 (3.3-5.1) mmol/L Chloride 109 H (96-108) mmol/L Carbon Dioxide 23 (22-29) mmol/L Anion Gap 15 (12-20) BUN 9 (9-16) mg/dL Creatinine 0.99 (0.5-1.4) mg/dL Estim Creat Clear Calc 123.1 Estimated GFR > 60 Random Glucose 87 (60-115) mg/dL Calcium 9.0 D (8.4-10.2) mg/dL Magnesium (1.6-2.6) mg/dL Total Bilirubin (0.0-1.0) mg/dL Direct Bilirubin (0.0-0.5) mg/dL AST (5-37) U/L ALT (0-40) U/L Alkaline Phosphatase (39-117) U/L Total Protein (6.5-8.0) g/dL Albumin (3.5-5.0) g/dL Salicylates (15-30) mg/dL Urine Opiates Screen (Not Detect) Acetaminophen < 1 (<30) mcg/mL Ur Barbiturates Screen (Not Detect) Ur Phencyclidine Scrn (Not Detect) Ur Amphetamines Screen (Not Detect) U Benzodiazepines Scrn (Not Detect) Urine Cocaine Screen (Not Detect) U Marijuana (THC) Screen (Not Detect) Ethyl Alcohol mg/dL 12/16/20 12/16/20 12/16/20 Range/Units 13:38 13:38 13:41 WBC (4.8-10.8) X10*3/uL RBC (4.60-5.80) X10*6/uL Hgb (14.0-18.0) g/dl Hct (42-52) % MCV (80-98) fL MCH (27.0-33.0) pg MCHC (31.0-36.0) g/dl RDW (11.0-16.0) % Plt Count (160-400) X10*3/uL MPV (9.4-12.4) fL Immature Gran % (Auto) (0.0-0.4) % Neut % (Auto) (45-73) % Lymph % (Auto) (20-40) % [place] % (Auto) (2-11) % Eos % (Auto) (0-4) % Baso % (Auto) (0-2) % Lymph # (Auto) (1.2-4.9) X10*3/uL [place] # (Auto) (0.1-1.2) X10*3/uL Eos # (Auto) (0.0-0.4) X10*3/uL Baso # (Auto) (0.0-0.2) X10*3/uL Abs Immat Gran (auto) (0.00-0.03) X10*3/uL Absolute Neuts (auto) (2.0-8.3) X10*3/uL Absolute Nucleated RBC (0.0-0.012) X10*3/uL Nucleated RBC % (auto) (0.0-0.2) /100WBC PT (10.8-13.0) SEC INR (0.9-1.1) APTT (24.1-38.0) SEC VBG pH 7.38 (7.32-7.43) VBG pCO2 42 mmHg VBG pO2 47 mmHg VBG HCO3 25 (22-26) mmol/L VBG O2 Saturation 77.0 % VBG Base Excess 0.4 mmol/L Sodium (135-145) mmol/L Potassium (3.3-5.1) mmol/L Chloride (96-108) mmol/L Carbon Dioxide (22-29) mmol/L Anion Gap (12-20) BUN (9-16) mg/dL Creatinine (0.5-1.4) mg/dL Estim Creat Clear Calc Estimated GFR Random Glucose (60-115) mg/dL Calcium (8.4-10.2) mg/dL Magnesium 2.1 (1.6-2.6) mg/dL Total Bilirubin 0.8 (0.0-1.0) mg/dL Direct Bilirubin 0.3 (0.0-0.5) mg/dL AST 13 (5-37) U/L ALT 10 (0-40) U/L Alkaline Phosphatase 188 H (39-117) U/L Total Protein 7.0 (6.5-8.0) g/dL Albumin 4.1 (3.5-5.0) g/dL Salicylates < 5.0 L (15-30) mg/dL Urine Opiates Screen (Not Detect) Acetaminophen (<30) mcg/mL Ur Barbiturates Screen (Not Detect) Ur Phencyclidine Scrn (Not Detect) Ur Amphetamines Screen (Not Detect) U Benzodiazepines Scrn (Not Detect) Urine Cocaine Screen (Not Detect) U Marijuana (THC) Screen (Not Detect) Ethyl Alcohol < 10 mg/dL 12/16/20 Range/Units 14:15 WBC (4.8-10.8) X10*3/uL RBC (4.60-5.80) X10*6/uL Hgb (14.0-18.0) g/dl Hct (42-52) % MCV (80-98) fL MCH (27.0-33.0) pg MCHC (31.0-36.0) g/dl RDW (11.0-16.0) % Plt Count (160-400) X10*3/uL MPV (9.4-12.4) fL Immature Gran % (Auto) (0.0-0.4) % Neut % (Auto) (45-73) % Lymph % (Auto) (20-40) % [place] % (Auto) (2-11) % Eos % (Auto) (0-4) % Baso % (Auto) (0-2) % Lymph # (Auto) (1.2-4.9) X10*3/uL [place] # (Auto) (0.1-1.2) X10*3/uL Eos # (Auto) (0.0-0.4) X10*3/uL Baso # (Auto) (0.0-0.2) X10*3/uL Abs Immat Gran (auto) (0.00-0.03) X10*3/uL Absolute Neuts (auto) (2.0-8.3) X10*3/uL Absolute Nucleated RBC (0.0-0.012) X10*3/uL Nucleated RBC % (auto) (0.0-0.2) /100WBC PT (10.8-13.0) SEC INR (0.9-1.1) APTT (24.1-38.0) SEC VBG pH (7.32-7.43) VBG pCO2 mmHg VBG pO2 mmHg VBG HCO3 (22-26) mmol/L VBG O2 Saturation % VBG Base Excess mmol/L Sodium (135-145) mmol/L Potassium (3.3-5.1) mmol/L Chloride (96-108) mmol/L Carbon Dioxide (22-29) mmol/L Anion Gap (12-20) BUN (9-16) mg/dL Creatinine (0.5-1.4) mg/dL Estim Creat Clear Calc Estimated GFR Random Glucose (60-115) mg/dL Calcium (8.4-10.2) mg/dL Magnesium (1.6-2.6) mg/dL Total Bilirubin (0.0-1.0) mg/dL Direct Bilirubin (0.0-0.5) mg/dL AST (5-37) U/L ALT (0-40) U/L Alkaline Phosphatase (39-117) U/L Total Protein (6.5-8.0) g/dL Albumin (3.5-5.0) g/dL Salicylates (15-30) mg/dL Urine Opiates Screen Not Detected (Not Detect) Acetaminophen (<30) mcg/mL Ur Barbiturates Screen Not Detected (Not Detect) Ur Phencyclidine Scrn Not Detected (Not Detect) Ur Amphetamines Screen Not Detected (Not Detect) U Benzodiazepines Scrn Not Detected (Not Detect) Urine Cocaine Screen Not Detected (Not Detect) U Marijuana (THC) Screen POSITIVE H (Not Detect) Ethyl Alcohol mg/dL ECG Data Attestation: I personally reviewed and interpreted this ECG as follows: ECG interpretation date: 12/16/20 ECG interpretation time: 13:28 Interpretation: Rate: 58 Rhythm: sinus bradycardia [place]: normal Normal P waves. Normal [place]. Normal QRS complex. ST T wave : normal no JUNIOR qTC: normal prior studies: no acute ischemia The study has been interpreted contemporaneously by me. . Discharge Plan Discharge Clinical Impression: Anxiety Prescriptions: No Action clonidine HCl 0.3 mg tablet 1 tab PO BEDTIME RF: 0 citalopram 20 mg tablet 1 tab PO DAILY RF: 0 acetaminophen 325 mg Tablet 650 mg PO Q6H PRN (Reason: Pain, Mild (Pain Scale 1-3)) 30 Days Qty: 240 RF: 0 aspirin 325 mg Tablet 325 mg PO BID 30 Days Qty: 60 RF: 0 lorazepam 1 mg tablet 1 mg PO Q8H PRN (Reason: anxiety) Qty: 60 RF: 0
--- NOTE | 2020-12-16 13:30 | HE.PHANOTE ---
Med Rec completed
[2020-12-16] MEDS: Activated charcoaL 50 GM/240 ML ORAL.SUSP PO (13:39)
[2020-12-16 13:44] LABS: MANUAL DIFF FLAG NO
[2020-12-16 13:46] LABS: Basophils Absolute Auto 0.1 X10*3/uL (0.0-0.2); Basophils Percent Auto 1.2 % (0-2); Eosinophils Absolute Auto 0.5 X10*3/uL (0.0-0.4); Hemoglobin 14.5 g/dl (14.0-18.0); Imm Gran Abs Auto 0.01 X10*3/uL (0.00-0.03); Imm Gran Pct Auto 0.2 % (0.0-0.4); Lymphocytes Absolute Auto 1.9 X10*3/uL (1.2-4.9); Lymphocytes Percent Auto 33.2 % (20-40); Mean Corpuscular HGB Conc 31.5 g/dl (31.0-36.0); Mean Corpuscular Volume 88.8 fL (80-98); Mean Platelet Volume 11.5 fL (9.4-12.4); Monocytes Absolute Auto 0.5 X10*3/uL (0.1-1.2); Neutrophils Absolute Auto 2.9 X10*3/uL (2.0-8.3); Neutrophils Percent Auto 49.4 % (45-73); Platelet Count 192 X10*3/uL (160-400); Red Blood Count 5.18 X10*6/uL (4.60-5.80); Red Cell Distribution Width 16.7 % (11.0-16.0); White Blood Count 5.8 X10*3/uL (4.8-10.8)
[2020-12-16 13:50] LABS: Venous Blood Gas Refer to POC result
[2020-12-16 13:50] LABS: VBG Base Excess 0.4 mmol/L; VBG HCO3 25 mmol/L (22-26); VBG pCO2 42 mmHg; VBG pH 7.38 (7.32-7.43); VBG pO2 47 mmHg
[2020-12-16 13:54] LABS: INTERNATIONAL NORM RATIO 1.1 (0.9-1.1); Prothrombin Time 13.3 SEC (10.8-13.0)
[2020-12-16 13:57] LABS: Partial Thromboplastin Time 34.9 SEC (24.1-38.0)
[2020-12-16 14:11] LABS: Ethanol < 10 mg/dL
[2020-12-16 14:15] LABS: Alanine Aminotransferase 10 U/L (0-40); Albumin Level 4.1 g/dL (3.5-5.0); Alkaline Phosphatase 188 U/L (39-117); Aspartate Amino Transferase 13 U/L (5-37); Bilirubin Direct 0.3 mg/dL (0.0-0.5); Bilirubin Total 0.8 mg/dL (0.0-1.0); Magnesium 2.1 mg/dL (1.6-2.6); Salicylate < 5.0 mg/dL (15-30)
[2020-12-16 14:16] LABS: Acetaminophen LAB < 1 mcg/mL (<30); Anion Gap 15 (12-20); Blood Urea Nitrogen 9 mg/dL (9-16); Carbon Dioxide 23 mmol/L (22-29); Chloride 109 mmol/L (96-108); Creatinine Clr Calc Pharmacy 123.1; Estimated Glomerular Filt Rate > 60; Glucose Random 87 mg/dL (60-115); Sodium 143 mmol/L (135-145)
--- NOTE | 2020-12-16 14:30 | PC.NURSE ---
pt getting extremely agitated, pulling all his medical equipment off, treating that he is going to leave the hospital, throwing all the bed linens, sitting on the floor. keeps stating that he wants to go home. pt is somewhat redirectable, is starting to calm down and sat on the stretcher. security at bedside pt just keeps saying that he took 35 tabs of ativan through out few hours, when is rn asked the pt id he wanted to kill himself, the pt only states that he did not care if woke up or not, will not answer if he is suicidal
[2020-12-16 14:59] LABS: Amphetamine Screen Urine Not Detected (Not Detect); Barbiturates, Urine Not Detected (Not Detect); Benzodiazepines Screen Urine Not Detected (Not Detect); Cannabinoid Screen Urine POSITIVE (Not Detect); Cocaine Screen Urine Not Detected (Not Detect); Opiate Screen Urine Not Detected (Not Detect); Phencyclidine Screen Urine Not Detected (Not Detect)
--- NOTE | 2020-12-16 15:16 | PC.NURSE ---
patient was transferred over from ed post some ingestion of allegedly 35-36 ativan and was charcoaled in main ED. patient allegedly had a person at bedside when patients behavior escalated and patient was transferred to this department. patient was demanding to leave, stood up and overturned mattress in room in presence of security (2) somewhat noncompliant with removal of IV device.once patient was somewhat calmer by appearance this internal communications writer attempted to conduct interview and patient declined to answer questions then also said he wanted no phone calls or visitors
--- NOTE | 2020-12-16 15:38 | PC.NURSE ---
patient asking to speak to the person in charge , nursing staff advised patient that he should be evaluated today,and when we had more information we would inform patient.
[2020-12-16 15:41] LABS: COVID-19 Test Negative (Negative); IDNOW Serial# 9DD0AD1C
--- NOTE | 2020-12-16 18:22 | MHC.CARE ---
[facility] unable to send a clinician to evaluate pt. CARE team notified [facility] and took over evaluation. This va underwriter assessed pt with plan for inpt psych admission. Pt has been placed on a Sect 12a and will be admitted to the hospital's inpt psych facility. If pt will not sign in on a voluntary basis, he will be admitted on a Sect 12b. ED provider in agreement with plan of care.
--- NOTE | 2020-12-16 21:20 | PC.NURSE ---
Patient was extremely agitated accusing us for keeping him here against his wish, demanding discharge immediate, patient had been calling to reach management to report his situation, patient was difficult to redirect, made threatening comments, exit seeking trying to push exit doors, when security came to talk and calm him down instead he swung at security, patient was put on hold four point restraint immediately, provider ordered Haldol 5 mg IM and Ativan 2 mg IM administered as ordered, pending effect, patient in on 1:1 for observation, will continue to monitor
[2020-12-16] MEDS: Haloperidol Lactate 5 MG/ML VIAL IM (21:33)
[2020-12-16] MEDS: LORazepam 2 MG/ML VIAL IM (21:33)
[2020-12-17 06:38] VITALS: BP 115/69; PULSE 66; RESP 16; TEMP 36.7; O2SAT 95
--- NOTE | 2020-12-17 06:57 | PC.NURSE ---
patient appears to be at rest at present breathing with even unlabored breaths patient appears in no distress
[2020-12-17] MEDS: Aspirin 325 MG TABLET PO (10:42)
[2020-12-17] MEDS: LORazepam 1 MG TABLET PO ×2 (10:43→20:51)
--- NOTE | 2020-12-17 13:33 | PC.ADMIT ---
Pt arrived on the unit at 1057 and was placed on 15 minute safety checks. Pt referred by TATI from [facility]. Pt was brought to ED after landlord called 911 d/y pt taking 36 lorazepam. Pt left a note saying if i dont wake up, who cares . Upon arrival pt denied any SI/HI/AH/VH. Pt kept repeating he did not understand why he was here and stating he wanted to go home. Pt minimizing overdose, stating he wasnt sure if he took his meds, so he took an extra dose. Pt is irritable and perseverative about leaving, unable to have a logical conversation with t/w. Pt does admit to prior inpatient stays in [facility], last in 2014. Pt does have outpatient providers, and reports a trauma history, though did not elaborate. Pt denies ETOH use in past 15 years, tox screen positive for marijuana. Pt has outpatient PCP, no concerning medical problems. Pt did sign 3 day notice, , SUELLEN, Marie Reynolds aware. Up on Friday 12/22. T/w spoke with MD after patients admission to update on patients presentation.
[2020-12-17 18:00] VITALS: BP 122/78; PULSE 68; TEMP 36.2
[2020-12-17] MEDS: Nicotine Polacrilex 2 MG GUM 4 MG BUCCAL (18:43)
[2020-12-17 20:50] VITALS: BP 122/78; PULSE 68
[2020-12-17] MEDS: cloNIDine HCL 0.1 MG TABLET 0.3 MG PO (20:50)
[2020-12-17] MEDS: traZODone HCL 50 MG TABLET PO (20:51)
[2020-12-18 06:35] VITALS: BP 93/56; PULSE 66; RESP 16; TEMP 36.2; O2SAT 97
[2020-12-18] MEDS: Escitalopram Oxalate 10 MG TABLET PO (09:09)
[2020-12-18] MEDS: Aspirin 325 MG TABLET PO ×2 (09:09→19:57)
[2020-12-18] MEDS: Nicotine 21 MG PATCH.TD24 TRANSDERMA (09:10)
--- NOTE | 2020-12-18 09:55 | HO.PSYADMNOT ---
HPI Chief Complaint: DEPRESSION ?OD SUB ABUSE Sources of Information: patient interviewed, chart reviewed and crisis/core team assessment reviewed HPI Subjective Notes: Donaldson Warning, Conditional Voluntary and 3 Day Narrative: Patient is a 50-year-old male with history of PTSD, depression and anxiety presents after ingesting about 35 Ativan in what he says was an accidental overdose; crisis note however reports that a text implying suicidal thinking was made to his landlord (confirmed by team staff). Patient reports that this is been a tough month, ?stressful? He says he has a ?constant shaking? and is worried it could be Parkinson's or MS or just his anxiety; patient is currently seeing Dr. Diaz a neurologist to evaluate (no shaking observed during interview). He also said he had surgery on his ankle back in July and until 3 months ago was chair bound. Patient also cites missing his girlfriend in [place] as a source of stress. Despite stress Patient reports only mild depression saying that every 1-2 weeks he will have about 1 day worth of feeling depressed which only last that day and then resolves. He reports anxiety, but says that 5 out of the 7 days of the week he is feeling fine and can go to stores and do anything he wants; however about 2 days a week he has bad enough anxiety where he can not go out and do anything but just sits at home. He denies any SI at all. Regarding taking 35 tabs of Ativan, he says I guess I got distracted... I kept asking myself did I take my meds? And then I would take another dose and then a few minutes later I ask myself, did I take my meds? And then take another dose. ? Patient says he has no idea why he was so distracted or why it did not hammad on him to stop taking more Ativan. However he denies that this in any way was a suicide attempt. Crisis/care team reports that a note was found by the landlord who was the one who called 911; reportedly the note said something to the effect of if I wake up oh well, if I do not wake up, oh well.? Patient says he has no recollection at all of writing this note and again reiterates he was not suicidal and did not intentionally overdose. Patient initially signed a CV but later and throughout much of the interview, patient became focused on being discharged immediately saying that he has PTSD from his history of incarceration and that being on a locked unit is triggering and is going to be dysregulated. Patient does say He is concerned about this recent event- taking an overdose without knowing it, leaving a note waxing suicidal thinking without any recollection- however he says that he wants to take care of this as an outpatient. In Service Educator discussed medication. Patient says that he does not do well on SSRIs even though he is on Lexapro and also reports he has done well on Celexa. He says what happens is if he takes an SSRI, he does really well for couple months, with depression resolved and a consistently stable mood, but after 2 months the medicine ? builds up in his system and all the sudden he falls down onto the floor with shakes. Patient however also reports that he will get these intermittent fall down on the floor ?shakes ?even during times when he has not been on an SSRI. On Celexa, he said he did very well for 5 years. In Service Educator discussed how this sounds like it is not likely due to an SSRI and headline writer briefly discussed pseudoseizures as a possibility. Patient said he is fine with continuing on the Lexapro for now. Patient reports he has been sober from alcohol for the past 5 years; other than smoking cannabis every few weeks he denies other drug use Patient says last psychiatric hospitalization was in 2004 Medical Evaluation Reviewed: Hospitalist Geri Pending Patient reports that his [facility] Medical History (Updated 12/19/20 @ 14:05 by Lucien Ramos) Anxiety Chronic post-traumatic stress disorder (PTSD) Depression Foot pain History of alcohol abuse History of seizure Hx of traumatic brain injury Insomnia Multiple lipomas Panic disorder PTSD (post-traumatic stress disorder) Smoker TBI (traumatic brain injury) Tobacco dependence Surgical History History of ankle surgery History of gastric bypass History of vasectomy Diagnostics Vital Signs (24Hr): Vital Signs - 24 hr 12/17/20 18:00 12/17/20 20:50 12/18/20 06:35 Temperature 97.2 F 97.1 F Pulse Rate 68 68 66 Respiratory Rate 16 Blood Pressure 122/78 122/78 93/56 L Pulse Oximetry 97 Body Mass Index 50.8 Labs Results: 12/16/20 13:38 12/18/20 08:25 Labs: Laboratory Results - last 48 hr 12/16/20 12/16/20 12/16/20 13:38 13:38 13:38 WBC 5.8 RBC 5.18 D Hgb 14.5 D Hct 46.0 D MCV 88.8 MCH 28.0 MCHC 31.5 RDW 16.7 H Plt Count 192 MPV 11.5 Immature Gran % (Auto) 0.2 Neut % (Auto) 49.4 Lymph % (Auto) 33.2 Childress % (Auto) 8.0 Eos % (Auto) 8.0 H Baso % (Auto) 1.2 Lymph # (Auto) 1.9 Childress # (Auto) 0.5 Eos # (Auto) 0.5 H Baso # (Auto) 0.1 Abs Immat Gran (auto) 0.01 Absolute Neuts (auto) 2.9 Absolute Nucleated RBC 0.000 Nucleated RBC % (auto) 0.0 PT 13.3 H INR 1.1 APTT 34.9 VBG pH VBG pCO2 VBG pO2 VBG HCO3 VBG O2 Saturation VBG Base Excess Sodium 143 Potassium 4.0 Chloride 109 H Carbon Dioxide 23 Anion Gap 15 BUN 9 Creatinine 0.99 Estim Creat Clear Calc 123.1 Estimated GFR > 60 Random Glucose 87 Calcium 9.0 D Magnesium Total Bilirubin Direct Bilirubin AST ALT Alkaline Phosphatase Total Protein Albumin Salicylates Urine Opiates Screen Acetaminophen < 1 Ur Barbiturates Screen Ur Phencyclidine Scrn Ur Amphetamines Screen U Benzodiazepines Scrn Urine Cocaine Screen U Marijuana (THC) Screen Ethyl Alcohol COVID-19 ([facility]) COVID-19 Clin Com 12/16/20 12/16/20 12/16/20 13:38 13:38 13:41 WBC RBC Hgb Hct MCV MCH MCHC RDW Plt Count MPV Immature Gran % (Auto) Neut % (Auto) Lymph % (Auto) Childress % (Auto) Eos % (Auto) Baso % (Auto) Lymph # (Auto) Childress # (Auto) Eos # (Auto) Baso # (Auto) Abs Immat Gran (auto) Absolute Neuts (auto) Absolute Nucleated RBC Nucleated RBC % (auto) PT INR APTT VBG pH 7.38 VBG pCO2 42 VBG pO2 47 VBG HCO3 25 VBG O2 Saturation 77.0 VBG Base Excess 0.4 Sodium Potassium Chloride Carbon Dioxide Anion Gap BUN Creatinine Estim Creat Clear Calc Estimated GFR Random Glucose Calcium Magnesium 2.1 Total Bilirubin 0.8 Direct Bilirubin 0.3 AST 13 ALT 10 Alkaline Phosphatase 188 H Total Protein 7.0 Albumin 4.1 Salicylates < 5.0 L Urine Opiates Screen Acetaminophen Ur Barbiturates Screen Ur Phencyclidine Scrn Ur Amphetamines Screen U Benzodiazepines Scrn Urine Cocaine Screen U Marijuana (THC) Screen Ethyl Alcohol < 10 COVID-19 ([facility]THA) COVID-19 [facility] Com 12/16/20 12/16/20 14:15 15:06 WBC RBC Hgb Hct MCV MCH MCHC RDW Plt Count MPV Immature Gran % (Auto) Neut % (Auto) Lymph % (Auto) Childress % (Auto) Eos % (Auto) Baso % (Auto) Lymph # (Auto) Childress # (Auto) Eos # (Auto) Baso # (Auto) Abs Immat Gran (auto) Absolute Neuts (auto) Absolute Nucleated RBC Nucleated RBC % (auto) PT INR APTT VBG pH VBG pCO2 VBG pO2 VBG HCO3 VBG O2 Saturation VBG Base Excess Sodium Potassium Chloride Carbon Dioxide Anion Gap BUN Creatinine Estim Creat Clear Calc Estimated GFR Random Glucose Calcium Magnesium Total Bilirubin Direct Bilirubin AST ALT Alkaline Phosphatase Total Protein Albumin Salicylates Urine Opiates Screen Not Detected Acetaminophen Ur Barbiturates Screen Not Detected Ur Phencyclidine Scrn Not Detected Ur Amphetamines Screen Not Detected U Benzodiazepines Scrn Not Detected Urine Cocaine Screen Not Detected U Marijuana (THC) Screen POSITIVE H Ethyl Alcohol COVID-19 ([facility]THA) Negative COVID-19 Clin Com See Note Meds/Allergies Meds Home Medications Acetaminophen (Acetaminophen 325 Mg Tablet) 650 mg PO Q6H PRN PRN Reason: Pain, Mild (Pain Scale 1-3) Acetaminophen (Acetaminophen 325 Mg Tablet) 650 mg PO Q6H PRN PRN Reason: Headache/Pain Mild Scale (1-3) Al Hydroxide/Mg Hydroxide (Magnesium Hydrox/Alum Hydrox 30 Ml Oral.Susp) 30 ml PO Q6H PRN PRN Reason: Heartburn/Nausea Aspirin (Aspirin 325 Mg Tablet) 325 mg PO BID KENDALL Last Admin: 12/19/20 08:21 Dose: 325 mg Documented by: Clonidine HCl (Clonidine Hcl 0.1 Mg Tablet) 0.3 mg PO BEDTIME KENDALL; Protocol Last Admin: 12/18/20 19:57 Dose: 0.3 mg Documented by: Escitalopram Oxalate (Escitalopram Oxalate 10 Mg Tablet) 10 mg PO DAILY [facility] Last Admin: 12/19/20 08:21 Dose: 10 mg Documented by: Hydroxyzine HCl (Hydroxyzine Hcl 25 Mg Tablet) 25 mg PO BEDTIME PRN PRN Reason: Anxiety Lorazepam (Lorazepam 0.5 Mg Tablet) 0.5 mg PO Q8H PRN PRN Reason: anxiety Last Admin: 12/19/20 11:54 Dose: 0.5 mg Documented by: Magnesium Hydroxide (Milk Of Magnesia 30 Ml Oral.Susp) 30 ml PO DAILY PRN PRN Reason: Constipation Nicotine (Nicotine 21 Mg Patch.Td24) 21 mg TRANSDERMA DAILY [facility] Last Admin: 12/19/20 08:21 Dose: 21 mg Documented by: Nicotine Polacrilex (Nicotine Polacrilex 2 Mg Gum) 4 mg BUCCAL Q2H PRN PRN Reason: Nicotine Cravings Last Admin: 12/19/20 11:55 Dose: 4 mg Documented by: Trazodone HCl (Trazodone Hcl 50 Mg Tablet) 50 mg PO BEDTIME PRN PRN Reason: Insomnia Last Admin: 12/17/20 20:51 Dose: 50 mg Documented by: Allergies Allergies Allergy/AdvReac Type Severity Reaction Status Date / Time codeine [CODEINE] Allergy Unknown PURITIS, Verified 12/08/20 09:42 HIVES, NAUSEA morphine [MORPHINE] Allergy Unknown PURITIS, Verified 12/08/20 09:42 HIVES, NAUSEA opium (anthroposophic) Allergy Unknown SENSATIVITY Verified 12/08/20 09:42 trazodone Allergy Unknown AMS Verified 12/08/20 09:42 zolpidem [Ambien] Allergy Unknown AMS Verified 12/08/20 09:42 Opium Allergy Unknown SENSATIVITY Uncoded 08/20/20 14:06 Mental Status Exam Mental Status Exam Narrative: Pt is alert and oriented; behavior is cooperative, friendly and calm; patient is not in distress; dressed in casual attire, unkempt but with adequate hygiene; mood is described as good and affect congruent; eye contact appropriate; Speech is normal rate, volume and prosody and not pressured; no psychomotor agitation/retardation present; thought process is organized, linear, logical and goal directed. Thought content is on discharge but otherwise pertinent to relevant topics and without any delusional content, paranoid ideations or grandiosity; denies any SI/HI. There is no evidence of perceptual disturbance. Patients insight and judgment appear impaired. Assessment & Plan Assessment & Plan (1) Anxiety: Status: Acute Code(s): F41.9 - Anxiety disorder, unspecified (2) Chronic post-traumatic stress disorder (PTSD): Status: Acute Code(s): F43.12 - Post-traumatic stress disorder, chronic (3) TBI (traumatic brain injury): Status: Chronic Code(s): S06.9X9A - Unspecified intracranial injury with loss of consciousness of unspecified duration, initial encounter Assessment and Plan: IMPRESSION: Patient is a 50-year-old male with history of PTSD, depression, TBI and anxiety presents after ingesting about 35 Ativan in what he says was an accidental overdose; crisis note however reports that a text implying suicidal thinking was made to his landlord (confirmed by team staff). Patient currently denies depression or any SI. He reports PTSD related anxiety Saint he is triggered by being on the unit. Otherwise patient has no explanation for why he took an overdose of benzodiazepines other than he was distracted leading up to taking 34 more tablets than prescribed. He denies any memory of texting his landlord a note that implied suicidal thinking. Although patient reports ongoing anxiety, he says it only seems to bother him 2 days out of 7. Patient is currently on Lexapro and says he did well on Celexa, but also says he has an intolerable history with SSRIs and describes having intermittent episodes where he will fall on the ground and shake, describing what sounds like pseudoseizures; patient reports these shakes happen even when he is not on an SSRI and currently he would like to continue on Lexapro, saying that it treats his depression well. While there is a low risk of seizures on SSRIs and they can reduce the seizure threshold, the incidence is low; he has been on these medications in the community without issue. Currently he is scheduled for an in-patient 48 hour EEG 12/31/2020. Patient does have a TBI listed in problem list. Patient reports that being on a locked unit is triggering his PTSD from prior incarceration. However currently, it is not clear what factors influenced this overdose; given both the overdose and the suicidal text, it is important for patient to remain for admission for his own safety and further assessment. plan Patient is on a 3 day notice Continue Lexapro Reduce Ativan .5mg and will likely discontinue given combination of PTSD, TBI and overdose Will seek collateral; patient signed a release of information for several people including his landlord Patient educated on: diagnosis, medication risk/benefits and therapeutic strategies Informed Consent: understands Reason for continued inpatient stay Substantial Risk for: harm to self
[2020-12-18 10:13] LABS: Alanine Aminotransferase 12 U/L (0-40); Alkaline Phosphatase 182 U/L (39-117); Aspartate Amino Transferase 19 U/L (5-37); Bilirubin Total 0.8 mg/dL (0.0-1.0); Blood Urea Nitrogen 14 mg/dL (9-16); Carbon Dioxide 27 mmol/L (22-29); Chloride 107 mmol/L (96-108); Creatinine Clr Calc Pharmacy 124.4; Estimated Glomerular Filt Rate > 60; Glucose Fasting 88 mg/dL (60-99); Sodium 140 mmol/L (135-145); Total Protein 6.8 g/dL (6.5-8.0)
[2020-12-18 10:18] LABS: Anion Gap 11 (12-20); Potassium 4.9 mmol/L (3.3-5.1)
[2020-12-18 10:33] LABS: Thyroid Stimulating Hormone 1.04 uIU/mL (0.32-4.0)
[2020-12-18 11:34] VITALS: BMI 34.9
[2020-12-18 16:40] VITALS: BP 120/78; PULSE 85; TEMP 36.5
[2020-12-18] MEDS: Nicotine Polacrilex 2 MG GUM 4 MG BUCCAL ×2 (18:38→20:21)
[2020-12-18 19:57] VITALS: BP 133/80; PULSE 69
[2020-12-18] MEDS: cloNIDine HCL 0.1 MG TABLET 0.3 MG PO (19:57)
[2020-12-19 06:10] VITALS: BP 111/65; PULSE 55; RESP 18; TEMP 37; O2SAT 95
[2020-12-19] MEDS: Nicotine 21 MG PATCH.TD24 TRANSDERMA (08:21)
[2020-12-19] MEDS: Aspirin 325 MG TABLET PO ×2 (08:21→20:20)
[2020-12-19] MEDS: Escitalopram Oxalate 10 MG TABLET PO (08:21)
--- NOTE | 2020-12-19 09:53 | HO.PSYCHPN ---
Subjective Subjective Date of Service: 12/19/20 Reason For Visit: DEPRESSION ?OD SUB ABUSE Subjective Notes: 3 Day Interim History: Pt reports i'm good. He continues to deny any SI at all, current or recent and though he remains perplexed as to why he took the overdose and why he texted his friend ...if i don't wake up, oh well.. Patient's friend and landlord Tony Mejia is visiting who corroborates the story that pt texted the message mentioned above. He does not think patient is currently suicidal but says when he came to patients apartment and referenced the empty bottle of Ativan, he reports patient says i took them by the 10's. Pt present and says that's what happened but remains adamant that he was not suicidal. Estimator Jewelry further reviewed pt's history and he denies hx of manic episodes or symptoms. Pt reports he's going days, even over a week without sleeping and constantly thinking about things, however he says during this time he's remained very tired and denies all other symptoms of giovani. Medication Compliance: Yes Side effects from medications: No Mental Status Exam Mental Status Exam Narrative: Pt is alert and oriented; behavior is cooperative, friendly and calm; patient is not in distress; dressed in casual attire, unkempt but with adequate hygiene; mood is described as good and affect congruent; eye contact appropriate; Speech is normal rate, volume and prosody and not pressured; no psychomotor agitation/retardation present; thought process is organized, linear, logical and goal directed. Thought content is on discharge but otherwise pertinent to relevant topics and without any delusional content, paranoid ideations or grandiosity; denies any SI/HI. There is no evidence of perceptual disturbance. Patients insight and judgment appear impaired. Diagnostics Vital Signs (24Hr): Vital Signs - 24 hr 12/18/20 16:40 12/18/20 19:57 12/19/20 06:10 Temperature 97.7 F 98.6 F Pulse Rate 85 69 55 Respiratory Rate 18 Blood Pressure 120/78 133/80 111/65 Pulse Oximetry 95 Body Mass Index 34.9 Labs Results: 12/16/20 13:38 12/18/20 08:25 Labs: Laboratory Results - last 48 hr 12/18/20 08:25 Sodium 140 Potassium 4.9 D Chloride 107 Carbon Dioxide 27 Anion Gap 11 L BUN 14 D Creatinine 0.98 Estim Creat Clear Calc 124.4 Estimated GFR > 60 Fasting Glucose 88 Calcium 9.0 Total Bilirubin 0.8 AST 19 D ALT 12 Alkaline Phosphatase 182 H Total Protein 6.8 Albumin 4.0 TSH 1.04 Medications Medications Current Medications Generic Name Dose Route Start Last Admin Trade Name Freq PRN Reason Stop Dose Admin Acetaminophen 650 mg 12/17/20 08:21 Acetaminophen 325 Mg Tablet PO Q6H PRN Pain, Mild (Pain Scale 1-3) Acetaminophen 650 mg 12/17/20 11:11 Acetaminophen 325 Mg Tablet PO Q6H PRN Headache/Pain Mild Scale (1-3) Al Hydroxide/Mg Hydroxide 30 ml 12/17/20 11:11 Magnesium Hydrox/Alum Hydrox 30 Ml Oral.Susp PO Q6H PRN Heartburn/Nausea Aspirin 325 mg 12/17/20 09:00 12/19/20 08:21 Aspirin 325 Mg Tablet PO 325 mg BID KENDALL Administration Clonidine HCl 0.3 mg 12/17/20 21:00 12/18/20 19:57 Clonidine Hcl 0.1 Mg Tablet PO 0.3 mg BEDTIME KENDALL Administration Protocol Escitalopram Oxalate 10 mg 12/17/20 09:00 12/19/20 08:21 Escitalopram Oxalate 10 Mg Tablet PO 10 mg DAILY KENDALL Administration Hydroxyzine HCl 25 mg 12/17/20 11:11 Hydroxyzine Hcl 25 Mg Tablet PO BEDTIME PRN Anxiety Lorazepam 0.5 mg 12/18/20 14:53 Lorazepam 0.5 Mg Tablet PO Q8H PRN anxiety Magnesium Hydroxide 30 ml 12/17/20 11:11 Milk Of Magnesia 30 Ml Oral.Susp PO DAILY PRN Constipation Nicotine 21 mg 12/17/20 18:45 12/19/20 08:21 Nicotine 21 Mg Patch.Td24 TRANSDERMA 21 mg DAILY KENDALL Administration Nicotine Polacrilex 4 mg 12/17/20 18:38 12/18/20 20:21 Nicotine Polacrilex 2 Mg Gum BUCCAL 4 mg Q2H PRN Administration Nicotine Cravings Trazodone HCl 50 mg 12/17/20 11:11 12/17/20 20:51 Trazodone Hcl 50 Mg Tablet PO 50 mg BEDTIME PRN Administration Insomnia Allergies Allergies Allergy/AdvReac Type Severity Reaction Status Date / Time codeine [CODEINE] Allergy Unknown PURITIS, Verified 12/08/20 09:42 HIVES, NAUSEA morphine [MORPHINE] Allergy Unknown PURITIS, Verified 12/08/20 09:42 HIVES, NAUSEA opium (anthroposophic) Allergy Unknown SENSATIVITY Verified 12/08/20 09:42 trazodone Allergy Unknown AMS Verified 12/08/20 09:42 zolpidem [Ambien] Allergy Unknown AMS Verified 12/08/20 09:42 Opium Allergy Unknown SENSATIVITY Uncoded 08/20/20 14:06 Assessment & Plan (2) Chronic post-traumatic stress disorder (PTSD): (3) TBI (traumatic brain injury): Assessment and Plan: IMPRESSION: Patient is a 50-year-old male with history of PTSD, depression, TBI and anxiety presents after ingesting about 35 Ativan in what he says was an accidental overdose; crisis note however reports that a text implying suicidal thinking was made to his landlord (confirmed by team staff). Patient currently denies depression or any SI. He reports PTSD related anxiety Saint he is triggered by being on the unit. Otherwise patient has no explanation for why he took an overdose of benzodiazepines other than he was distracted leading up to taking 34 more tablets than prescribed. He denies any memory of texting his landlord a note that implied suicidal thinking. Although patient reports ongoing anxiety, he says it only seems to bother him 2 days out of 7. Patient is currently on Lexapro and says he did well on Celexa, but also says he has an intolerable history with SSRIs and describes having intermittent episodes where he will fall on the ground and shake, describing what sounds like pseudoseizures; patient reports these shakes happen even when he is not on an SSRI and currently he would like to continue on Lexapro, saying that it treats his depression well. While there is a low risk of seizures on SSRIs and they can reduce the seizure threshold, the incidence is low; he has been on these medications in the community without issue. Currently he is scheduled for an in-patient 48 hour EEG 12/31/2020. Patient does have a TBI listed in problem list. Patient reports that being on a locked unit is triggering his PTSD from prior incarceration. However currently, it is not clear what factors influenced this overdose; given both the overdose and the suicidal text, it is important for patient to remain for admission for his own safety and further assessment. plan Patient is on a 3 day notice Continue Lexapro Reduce Ativan .5mg and will likely discontinue given combination of PTSD, TBI and overdose No change to the above plan Greater than 50% of the session was spent on counseling and/or coordination of care Patient educated on: diagnosis and medication risk/benefits Informed Consent: understands Greater than 50% of the session was spent on counseling and/or coordination of care Reason for contiued inpatient stay Substantial Risk for: med/psych decompensation
[2020-12-19] MEDS: LORazepam 0.5 MG TABLET PO ×2 (11:54→20:20)
[2020-12-19] MEDS: Nicotine Polacrilex 2 MG GUM 4 MG BUCCAL ×2 (11:55→20:24)
[2020-12-19 17:11] VITALS: BP 137/65; PULSE 61; RESP 18; TEMP 36.3; O2SAT 100
[2020-12-19 20:20] VITALS: BP 133/73; PULSE 65
[2020-12-19] MEDS: hydrOXYzine HCL 25 MG TABLET PO (20:20)
[2020-12-19] MEDS: cloNIDine HCL 0.1 MG TABLET 0.3 MG PO (20:20)
[2020-12-20 06:00] VITALS: BP 100/56; PULSE 58; RESP 18; TEMP 36.2; O2SAT 98
[2020-12-20] MEDS: Aspirin 325 MG TABLET PO ×2 (08:48→20:46)
[2020-12-20] MEDS: Nicotine 21 MG PATCH.TD24 TRANSDERMA (08:49)
[2020-12-20] MEDS: Escitalopram Oxalate 10 MG TABLET PO (08:49)
[2020-12-20] MEDS: Nicotine Polacrilex 2 MG GUM 4 MG BUCCAL (16:41)
[2020-12-20 16:52] VITALS: BP 134/71; PULSE 50; RESP 16; TEMP 36.3; O2SAT 99
--- NOTE | 2020-12-20 20:44 | P.PNPSI_ITS ---
Subjective Subjective Date of Service: 12/20/20 Reason For Visit: DEPRESSION ?OD SUB ABUSE Interim History: Jeff was very triggered by the noise on the unit and the rapid comings and dipesh. He did respond to re-direction. He used prn medication with good effect Medication Compliance: Yes Side effects from medications: No Review of Systems Acute medical concerns: No Medical Review of Systems: unchanged Mental Status Exam Mental Status Exam Narrative: Pt is alert and oriented; behavior is cooperative, friendly and calm; patient is not in distress; dressed in casual attire, unkempt but with adequate hygiene; mood is described as good and affect congruent; eye contact appropriate; Speech is normal rate, volume and prosody and not pressured; no psychomotor agitation/retardation present; thought process is organized, linear, logical and goal directed. Thought content is on discharge but otherwise pertinent to relevant topics and without any delusional content, paranoid ideations or grandiosity; denies any SI/HI. There is no evidence of perceptual disturbance. Patients insight and judgment appear impaired. Diagnostics Vital Signs (24Hr): Vital Signs - 24 hr 12/20/20 06:00 12/20/20 16:52 Temperature 97.2 F 97.4 F Pulse Rate 58 50 Respiratory Rate 18 16 Blood Pressure 100/56 L 134/71 Pulse Oximetry 98 99 Body Mass Index 34.9 Labs Results: 12/16/20 13:38 12/18/20 08:25 Medications Medications Current Medications Generic Name Dose Route Start Last Admin Trade Name Freq PRN Reason Stop Dose Admin Acetaminophen 650 mg 12/17/20 08:21 Acetaminophen 325 Mg Tablet PO Q6H PRN Pain, Mild (Pain Scale 1-3) Acetaminophen 650 mg 12/17/20 11:11 Acetaminophen 325 Mg Tablet PO Q6H PRN Headache/Pain Mild Scale (1-3) Al Hydroxide/Mg Hydroxide 30 ml 12/17/20 11:11 Magnesium Hydrox/Alum Hydrox 30 Ml Oral.Susp PO Q6H PRN Heartburn/Nausea Aspirin 325 mg 12/17/20 09:00 12/20/20 08:48 Aspirin 325 Mg Tablet PO 325 mg BID KENDALL Administration Clonidine HCl 0.3 mg 12/17/20 21:00 12/19/20 20:20 Clonidine Hcl 0.1 Mg Tablet PO 0.3 mg BEDTIME KENDALL Administration Protocol Escitalopram Oxalate 10 mg 12/17/20 09:00 12/20/20 08:49 Escitalopram Oxalate 10 Mg Tablet PO 10 mg DAILY KENDALL Administration Hydroxyzine HCl 25 mg 12/17/20 11:11 12/19/20 20:20 Hydroxyzine Hcl 25 Mg Tablet PO 25 mg BEDTIME PRN Administration Anxiety Lorazepam 0.5 mg 12/18/20 14:53 12/19/20 20:20 Lorazepam 0.5 Mg Tablet PO 0.5 mg Q8H PRN Administration anxiety Magnesium Hydroxide 30 ml 12/17/20 11:11 Milk Of Magnesia 30 Ml Oral.Susp PO DAILY PRN Constipation Nicotine 21 mg 12/17/20 18:45 12/20/20 08:49 Nicotine 21 Mg Patch.Td24 TRANSDERMA 21 mg DAILY KENDALL Administration Nicotine Polacrilex 4 mg 12/17/20 18:38 12/20/20 16:41 Nicotine Polacrilex 2 Mg Gum BUCCAL 4 mg Q2H PRN Administration Nicotine Cravings Trazodone HCl 50 mg 12/17/20 11:11 12/17/20 20:51 Trazodone Hcl 50 Mg Tablet PO 50 mg BEDTIME PRN Administration Insomnia Allergies Allergies Allergy/AdvReac Type Severity Reaction Status Date / Time codeine [CODEINE] Allergy Unknown PURITIS, Verified 12/08/20 09:42 HIVES, NAUSEA morphine [MORPHINE] Allergy Unknown PURITIS, Verified 12/08/20 09:42 HIVES, NAUSEA opium (anthroposophic) Allergy Unknown SENSATIVITY Verified 12/08/20 09:42 trazodone Allergy Unknown AMS Verified 12/08/20 09:42 zolpidem [Ambien] Allergy Unknown AMS Verified 12/08/20 09:42 Opium Allergy Unknown SENSATIVITY Uncoded 08/20/20 14:06 Assessment & Plan Assessment & Plan (1) Anxiety: Status: Acute Code(s): F41.9 - Anxiety disorder, unspecified (2) Chronic post-traumatic stress disorder (PTSD): Status: Acute Code(s): F43.12 - Post-traumatic stress disorder, chronic (3) TBI (traumatic brain injury): Status: Chronic Code(s): S06.9X9A - Unspecified intracranial injury with loss of consciousness of unspecified duration, initial encounter Assessment and Plan: IMPRESSION: Patient is a 50-year-old male with history of PTSD, depression, TBI and anxiety presents after ingesting about 35 Ativan in what he says was an accidental over dose; crisis note however reports that a text implying suicidal thinking was made to his landlord (confirmed by team staff). Patient currently denies depression or any SI. He reports PTSD related anxiety Saint he is triggered by being on the unit. Otherwise patient has no explanation for why he took an overdose of benzodiazepines other than he was distracted leading up to taking 34 more tablets than prescribed. He denies any memory of texting his landlord a note that implied suicidal thinking. Although patient reports ongoing anxiety, he says it only seems to bother him 2 days out of 7. Patient is currently on Lexapro and says he did well on Celexa, but also says he has an intolerable h istory with SSRIs and describes having intermittent episodes where he will fall on the ground and shake, describing what sounds like pseudoseizures; patient reports these shakes happen even when he is not on an SSRI and currently he would like to continue on Lexapro, saying that it treats his depression well. While there is a low risk of seizures on SSRIs and they can reduce the seizure threshold, the incidence is low; he has been on these medications in the community without issue. Currently he is scheduled for an in-patient 48 hour EEG 12/31/2020. Patient does have a TBI listed in problem list. Patient reports that being on a locked unit is triggering his PTSD from prior incarceration. However currently, it is not clear what factors influenced this overdose; given both the overdose and the suicidal text, it is important for patient to remain for admission for his own safety and further assessment. plan Patient is on a 3 day notice Continue Lexapro Reduce Ativan .5mg and will likely discontinue given combination of PTSD, TBI and overdose Will seek collateral; patient signed a release of information for several people including his landlord No change to the above plan Greater than 50% of the session was spent on counseling and/or coordination of care Patient educated on: diagnosis and medication risk/benefits Informed Consent: understands Reason for contiued inpatient stay Substantial Risk for: inability to function
[2020-12-20 20:47] VITALS: BP 132/78; PULSE 67
[2020-12-20] MEDS: cloNIDine HCL 0.1 MG TABLET 0.3 MG PO (20:47)
[2020-12-21 06:00] VITALS: BP 119/66; PULSE 57; RESP 18; TEMP 36.6; O2SAT 97
[2020-12-21] MEDS: Aspirin 325 MG TABLET PO ×2 (07:59→20:32)
[2020-12-21] MEDS: Nicotine 21 MG PATCH.TD24 TRANSDERMA (08:00)
[2020-12-21] MEDS: Escitalopram Oxalate 10 MG TABLET PO (08:00)
[2020-12-21] MEDS: Nicotine Polacrilex 2 MG GUM 4 MG BUCCAL (13:15)
[2020-12-21] MEDS: LORazepam 0.5 MG TABLET PO (13:15)
[2020-12-21 16:38] VITALS: BP 111/88; PULSE 72; RESP 18; TEMP 36.7; O2SAT 99
--- NOTE | 2020-12-21 18:42 | HO.PSYCHPN ---
Subjective Subjective Date of Service: 12/21/20 Reason For Visit: DEPRESSION ?OD SUB ABUSE Interim History: Jeff continues to feel quite triggered on the unit and he is anxious to be able to leave the hospital. He was able to get support from staff around a particular patient that he finds hard to tolerate. Medication Compliance: Yes Side effects from medications: No Review of Systems Acute medical concerns: No Medical Review of Systems: unchanged Mental Status Exam Mental Status Exam Narrative: Pt is alert and oriented; behavior is cooperative, friendly and calm; patient is not in distress; dressed in casual attire, unkempt but with adequate hygiene; mood is described as good and affect congruent; eye contact appropriate; Speech is normal rate, volume and prosody and not pressured; no psychomotor agitation/retardation present; thought process is organized, linear, logical and goal directed. Thought content is on discharge but otherwise pertinent to relevant topics and without any delusional content, paranoid ideations or grandiosity; denies any SI/HI. There is no evidence of perceptual disturbance. Patients insight and judgment appear impaired. Diagnostics Vital Signs (24Hr): Vital Signs - 24 hr 12/20/20 20:47 12/21/20 06:00 12/21/20 16:38 Temperature 97.8 F 98.0 F Pulse Rate 67 57 72 Respiratory Rate 18 18 Blood Pressure 132/78 119/66 111/88 Pulse Oximetry 97 99 Body Mass Index 34.9 Labs Results: 12/16/20 13:38 12/18/20 08:25 Medications Medications Current Medications Generic Name Dose Route Start Last Admin Trade Name Freq PRN Reason Stop Dose Admin Acetaminophen 650 mg 12/17/20 08:21 Acetaminophen 325 Mg Tablet PO Q6H PRN Pain, Mild (Pain Scale 1-3) Acetaminophen 650 mg 12/17/20 11:11 Acetaminophen 325 Mg Tablet PO Q6H PRN Headache/Pain Mild Scale (1-3) Al Hydroxide/Mg Hydroxide 30 ml 12/17/20 11:11 Magnesium Hydrox/Alum Hydrox 30 Ml Oral.Susp PO Q6H PRN Heartburn/Nausea Aspirin 325 mg 12/17/20 09:00 12/21/20 07:59 Aspirin 325 Mg Tablet PO 325 mg BID KENDALL Administration Clonidine HCl 0.3 mg 12/17/20 21:00 12/20/20 20:47 Clonidine Hcl 0.1 Mg Tablet PO 0.3 mg BEDTIME KENDALL Administration Protocol Escitalopram Oxalate 10 mg 12/17/20 09:00 12/21/20 08:00 Escitalopram Oxalate 10 Mg Tablet PO 10 mg DAILY KENDALL Administration Hydroxyzine HCl 25 mg 12/17/20 11:11 12/19/20 20:20 Hydroxyzine Hcl 25 Mg Tablet PO 25 mg BEDTIME PRN Administration Anxiety Lorazepam 0.5 mg 12/18/20 14:53 12/21/20 13:15 Lorazepam 0.5 Mg Tablet PO 0.5 mg Q8H PRN Administration anxiety Magnesium Hydroxide 30 ml 12/17/20 11:11 Milk Of Magnesia 30 Ml Oral.Susp PO DAILY PRN Constipation Nicotine 21 mg 12/17/20 18:45 12/21/20 08:00 Nicotine 21 Mg Patch.Td24 TRANSDERMA 21 mg DAILY KENDALL Administration Nicotine Polacrilex 4 mg 12/17/20 18:38 12/21/20 13:15 Nicotine Polacrilex 2 Mg Gum BUCCAL 4 mg Q2H PRN Administration Nicotine Cravings Trazodone HCl 50 mg 12/17/20 11:11 12/17/20 20:51 Trazodone Hcl 50 Mg Tablet PO 50 mg BEDTIME PRN Administration Insomnia Allergies Allergies Allergy/AdvReac Type Severity Reaction Status Date / Time codeine [CODEINE] Allergy Unknown PURITIS, Verified 12/08/20 09:42 HIVES, NAUSEA morphine [MORPHINE] Allergy Unknown PURITIS, Verified 12/08/20 09:42 HIVES, NAUSEA opium (anthroposophic) Allergy Unknown SENSATIVITY Verified 12/08/20 09:42 trazodone Allergy Unknown AMS Verified 12/08/20 09:42 zolpidem [Ambien] Allergy Unknown AMS Verified 12/08/20 09:42 Opium Allergy Unknown SENSATIVITY Uncoded 08/20/20 14:06 Assessment & Plan Assessment & Plan (1) Anxiety: Status: Acute Code(s): F41.9 - Anxiety disorder, unspecified (2) Chronic post-traumatic stress disorder (PTSD): Status: Acute Code(s): F43.12 - Post-traumatic stress disorder, chronic (3) TBI (traumatic brain injury): Status: Chronic Code(s): S06.9X9A - Unspecified intracranial injury with loss of consciousness of unspecified duration, initial encounter Assessment and Plan: IMPRESSION: Patient is a 50-year-old male with history of PTSD, depression, TBI and anxiety presents after ingesting about 35 Ativan in what he says was an accidental overdose; crisis note however reports that a text implying suicidal thinking was made to his landlord (confirmed by team staff). Patient currently denies depression or any SI. He reports PTSD related anxiety Saint he is triggered by being on the unit. Otherwise patient has no explanation for why he took an overdose of benzodiazepines other than he was distracted leading up to taking 34 more tablets than prescribed. He denies any memory of texting his landlord a note that implied suicidal thinking. Although patient reports ongoing anxiety, he says it only seems to bother him 2 days out of 7. Patient is currently on Lexapro and says he did well on Celexa, but also says he has an intolerable history with SSRIs and describes having intermittent episodes where he will fall on the ground and shake, describing what sounds like pseudoseizures; patient reports these shakes happen even when he is not on an SSRI and currently he would like to continue on Lexapro, saying that it treats his depression well. While there is a low risk of seizures on SSRIs and they can reduce the seizure threshold, the incidence is low; he has been on these medications in the community without issue. Currently he is scheduled for an in-patient 48 hour EEG 12/31/2020. Patient does have a TBI listed in problem list. Patient reports that being on a locked unit is triggering his PTSD from prior incarceration. However currently, it is not clear what factors influenced this overdose; given both the overdose and the suicidal text, it is important for patient to remain for admission for his own safety and further assessment. plan Patient is on a 3 day notice Continue Lexapro Reduce Ativan .5mg and will likely discontinue given combination of PTSD, TBI and overdose Will seek collateral; patient signed a release of information for several people including his landlord No change to the above plan Greater than 50% of the session was spent on counseling and/or coordination of care Patient educated on: diagnosis and medication risk/benefits Informed Consent: further education needed Reason for contiued inpatient stay Substantial Risk for: inability to function
[2020-12-21 20:32] VITALS: BP 139/70; PULSE 57
[2020-12-21] MEDS: cloNIDine HCL 0.1 MG TABLET 0.3 MG PO (20:32)
[2020-12-22 06:00] VITALS: BP 125/67; PULSE 184; RESP 18; TEMP 36.1; O2SAT 96
[2020-12-22] MEDS: Nicotine 21 MG PATCH.TD24 TRANSDERMA (09:07)
[2020-12-22] MEDS: Aspirin 325 MG TABLET PO (09:07)
[2020-12-22] MEDS: Escitalopram Oxalate 10 MG TABLET PO (09:08)
[2020-12-22 11:58] VITALS: BP 144/84; PULSE 69
--- NOTE | 2020-12-22 12:34 | P.DS_ITS ---
DS: Providers Provider Date of Service: 12/22/20 Date of admission: 12/17/20 09:54 Date of discharge: 12/22/20 Primary care physician: Doc Cortes MD Attending physician on admission: Lucien Ramos Attending physician on discharge: Lucien Ramos DS: Diagnosis Discharge Diagnosis (1) Chronic post-traumatic stress disorder (PTSD): Status: Acute (2) TBI (traumatic brain injury): Status: Chronic Problem details: in patients recorded problem DS: Medications Discharge Medications Home Medications: Previous Rx's Medication Instructions Recorded aspirin 325 mg PO BID 30 Days #60 tab 12/22/20 citalopram 20 mg PO DAILY 30 Days #30 tab 12/22/20 clonidine HCl 0.3 mg PO BEDTIME 30 Days #30 tab 12/22/20 Discharge Plan Discharge Patient Disposition: Home, Self-Care Discharge Diagnosis: PTSD, Chronic Referrals: Therapist: John Paul Pathak ([facility]) [Other] - 12/26/20 2:00 pm Psychiatrist: Dr. Sylvester ([facility]) [Other] - 12/31/20 8:30 am Britt Deluca Pierre [Other] - 1 Week (fax [phone] The [facility] Service will begin on 12/23/20- they will call you to set a time. ) PHP: [facility] [Other] - 1 Week (You are on their wait list which is three weeks (could be shorter if people drop out). They will call you to check in but you can also call them at the above number. The program is for ten days and they ask you are attending all ten days consistently. ) Doc Cortes MD [Primary Care Provider] - 1 Week Discharge Medications: Continued aspirin 325 mg Tablet 325 mg PO BID 30 Days Qty: 60 RF: 0 Changed clonidine HCl 0.3 mg tablet 0.3 mg PO BEDTIME 30 Days Qty: 30 RF: 0 citalopram 20 mg tablet 20 mg PO DAILY 30 Days Qty: 30 RF: 0 Discontinued acetaminophen 325 mg Tablet 650 mg PO Q6H PRN (Reason: Pain, Mild (Pain Scale 1-3)) 30 Days Qty: 240 RF: 0 lorazepam 1 mg tablet 1 mg PO Q8H PRN (Reason: anxiety) Qty: 60 RF: 0 Discharge Orders: Discharge Order (Routine); Ordered 12/22/20 Ordered By: Lucien Ramos Diet: regular diet Activity on Discharge: As tolerated Stand Alone Forms: Patient Portal Discharge page Health Concerns: depression, anxiety Plan of Treatment: follow up with your outpatient providers take medications as prescribed utilize coping skills reach out for help if feeling unsafe Assessment: Patient has been cooperative, forthcoming in interviews, involved in dispo planning and has approached psychiatric illness w/ insight. The vet was observed closely by nursing and unit staff throughout admission; patient denies SI/HI, demonstrated appropriate behaviors and impulse control and did not engage in any behaviors that suggested dangerousness to self or others. The continues to demonstrate good judgment in terms of purusing treatment. Mental Status Exam Mental Status Exam Narrative: Pt is alert and oriented; behavior is cooperative, friendly and calm; patient is not in distress; dressed in casual attire, with adequate hygiene; mood is described as good and affect congruent; eye contact appropriate; Speech is normal rate, volume and prosody and not pressured; no psychomotor agitation/retardation present; thought process is organized, linear, logical and goal directed. Thought content is on plans post discharge and pertinent to relevant topics and without any delusional content, paranoid ideations or grandiosity; denies any SI/HI. There is no evidence of perceptual disturbance. Patients insight and judgment appear intact. Data Data Completed and Pending Completed studies during hospitalization [Text1]: 12/16/20 12/16/20 12/16/20 13:38 13:38 13:38 WBC 5.8 RBC 5.18 D Hgb 14.5 D Hct 46.0 D MCV 88.8 MCH 28.0 MCHC 31.5 RDW 16.7 H Plt Count 192 MPV 11.5 Immature Gran % (Auto) 0.2 Neut % (Auto) 49.4 Lymph % (Auto) 33.2 Knox % (Auto) 8.0 Eos % (Auto) 8.0 H Baso % (Auto) 1.2 Lymph # (Auto) 1.9 Knox # (Auto) 0.5 Eos # (Auto) 0.5 H Baso # (Auto) 0.1 Abs Immat Gran (auto) 0.01 Absolute Neuts (auto) 2.9 Absolute Nucleated RBC 0.000 Nucleated RBC % (auto) 0.0 PT 13.3 H INR 1.1 APTT 34.9 VBG pH VBG pCO2 VBG pO2 VBG HCO3 VBG O2 Saturation VBG Base Excess Sodium 143 Potassium 4.0 Chloride 109 H Carbon Dioxide 23 Anion Gap 15 BUN 9 Creatinine 0.99 Estim Creat Clear Calc 123.1 Estimated GFR > 60 Random Glucose 87 Fasting Glucose Calcium 9.0 D Magnesium Total Bilirubin Direct Bilirubin AST ALT Alkaline Phosphatase Total Protein Albumin TSH Salicylates Urine Opiates Screen Acetaminophen < 1 Ur Barbiturates Screen Ur Phencyclidine Scrn Ur Amphetamines Screen U Benzodiazepines Scrn Urine Cocaine Screen U Marijuana (THC) Screen Ethyl Alcohol COVID-19 (MARTHA) COVID-19 [employer] 12/16/20 12/16/20 12/16/20 13:38 13:38 13:41 WBC RBC Hgb Hct MCV MCH MCHC RDW Plt Count MPV Immature Gran % (Auto) Neut % (Auto) Lymph % (Auto) Knox % (Auto) Eos % (Auto) Baso % (Auto) Lymph # (Auto) Knox # (Auto) Eos # (Auto) Baso # (Auto) Abs Immat Gran (auto) Absolute Neuts (auto) Absolute Nucleated RBC Nucleated RBC % (auto) PT INR APTT VBG pH 7.38 VBG pCO2 42 VBG pO2 47 VBG HCO3 25 VBG O2 Saturation 77.0 VBG Base Excess 0.4 Sodium Potassium Chloride Carbon Dioxide Anion Gap BUN Creatinine Estim Creat Clear Calc Estimated GFR Random Glucose Fasting Glucose Calcium Magnesium 2.1 Total Bilirubin 0.8 Direct Bilirubin 0.3 AST 13 ALT 10 Alkaline Phosphatase 188 H Total Protein 7.0 Albumin 4.1 TSH Salicylates < 5.0 L Urine Opiates Screen Acetaminophen Ur Barbiturates Screen Ur Phencyclidine Scrn Ur Amphetamines Screen U Benzodiazepines Scrn Urine Cocaine Screen U Marijuana (THC) Screen Ethyl Alcohol < 10 COVID-19 (MARTHA) COVID-19 [employer] 12/16/20 12/16/20 12/18/20 14:15 15:06 08:25 WBC RBC Hgb Hct MCV MCH MCHC RDW Plt Count MPV Immature Gran % (Auto) Neut % (Auto) Lymph % (Auto) Knox % (Auto) Eos % (Auto) Baso % (Auto) Lymph # (Auto) Knox # (Auto) Eos # (Auto) Baso # (Auto) Abs Immat Gran (auto) Absolute Neuts (auto) Absolute Nucleated RBC Nucleated RBC % (auto) PT INR APTT VBG pH VBG pCO2 VBG pO2 VBG HCO3 VBG O2 Saturation VBG Base Excess Sodium 140 Potassium 4.9 D Chloride 107 Carbon Dioxide 27 Anion Gap 11 L BUN 14 D Creatinine 0.98 Estim Creat Clear Calc 124.4 Estimated GFR > 60 Random Glucose Fasting Glucose 88 Calcium 9.0 Magnesium Total Bilirubin 0.8 Direct Bilirubin AST 19 D ALT 12 Alkaline Phosphatase 182 H Total Protein 6.8 Albumin 4.0 TSH 1.04 Salicylates Urine Opiates Screen Not Detected Acetaminophen Ur Barbiturates Screen Not Detected Ur Phencyclidine Scrn Not Detected Ur Amphetamines Screen Not Detected U Benzodiazepines Scrn Not Detected Urine Cocaine Screen Not Detected U Marijuana (THC) Screen POSITIVE H Ethyl Alcohol COVID-19 (MARTHA) Negative COVID-19 Clin Com See Note DS: Summary Hospital Course Hospital Course: Patient is a 50-year-old male with history of PTSD, depression, TBI and anxiety presents after ingesting about 35 Ativan in what he says was an accidental overdose though he had texted his friend/landlord a text implying suicidal thinking. Patient was admitted on a CV, however he soon signed a 3 day notice saying he wanted to leave the unit since his PTSD was being triggered by memories of incarceration. Patient denied any depression or any recent or current suicidal ideation and remained adamant that although perplexing to him, this past event of taking an overdose was not in any way a suicide attempt. The patient has a history of depression and anxiety he said depression both come about maybe once every few weeks and only last for a day and that anxiety is onl y problematic 2/7 days a week. Patient describes having intermittent shakes in what sounds like pseudoseizures and he is currently scheduled for an in- patient 48 hour EEG 12/31/2020. Throughout his time on the unit, patient continued to deny any SI or HI and demonstrated appropriate behavior and impulse control. He got along well with staff and peers. Although initially wanting to leave, patient said that he was grateful he had remained on the unit because he said I guess what I needed was to schedule myself a break down and come here and re-evaluate my life. He said he has realized he needs to become more involved in the community and has already set up activities for himself upon discharge. The patient's 3 day notice is due on 12/22/20. He continues to deny any SI or HI, is in a good mood, with bright affect and is future focused. He returns home where he lives in a duplex with his best friend Tony Turk who visited patient while on the unit and is a supportive influence. Patient is not an imminent risk for harm to self or others and does not rise to the level of involuntary commitment. His request for discharge was honored. Brazing Machine Operator Automatic discussed how patient was not being discharged with Ativan as inspector automatic typewriter thinks it is not particularly safe medication for him and is relatively contraindicated in people with PTSD. Patient said he fully understands and is fine with not having this medication anymore. Time spent discussing smoking cessation with patient: 3 to 10 minutes (Patient says he plans to continue smoking cigarettes) Status at Discharge Functional status at discharge: independent ambulation Overall status at discharge: patient is back to baseline Time Spent with Patient Time attestation: Total time spent providing and/or coordinating discharge services: Time spent: Greater than 30 minutes
== END 2020-12-22 15:18 | disposition home or self-care (01) | DRG 880 ==
LOC: HO.ED 14:52 → HO.PM5 12-17 10:21
PROVIDERS: Admitting Provider Psychiatry & Neurology Psychiatry; Emergency Provider Emergency Medicine; PCP Internal Medicine; Visit Provider Psychiatry & Neurology Psychiatry
DX: F41.9 Anxiety disorder, unspecified (principal); R45.851 Suicidal ideations; F43.12 Post-traumatic stress disorder, chronic; F17.210 Nicotine dependence, cigarettes, uncomplicated; T42.4X1A Poisoning by benzodiazepines, accidental (unintentional), initial encounter; Y92.009 Unspecified place in unspecified non-institutional (private) residence as the place of occurrence of the external cause; Z71.6 Tobacco abuse counseling; Z20.822 Contact with and (suspected) exposure to COVID-19; Z87.820 Personal history of traumatic brain injury; Z88.5 Allergy status to narcotic agent; Z79.82 Long term (current) use of aspirin; Z79.899 Other long term (current) drug therapy
CPT/HCPCS: 36415; 80048; 80053; 80076; 80143; 80179; 80307; 82077; 83735; 84443; 85025; 85610; 85730; 87635; 93005; 96372; 99285; J2060

== ENCOUNTER 2023-02-14 09:46 | Outpatient (AMB) | payer OTHER, SELFPAY ==
--- NOTE | 2023-02-14 09:51 | MHC.PC.OV ---
Vital Signs 02/14/23 09:53 Height 5 ft 6 in Weight 228 lb 4 oz BMI 36.8 BP 120/76 Blood Pressure Location Lt brachial Position Sitting Pulse 54 Pulse Source Pulse Oximeter Pulse Oximetry (%) 96 Oxygen Delivery Method Room Air Intake Visit Reasons: severe daily fatigue Intake Note: Patient is here today for sever daily fatigue. 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 Hearing Care Practitioner: Present Accompanied by: Friend Allergies codeine [CODEINE] Allergy (Unknown, Verified 02/14/23 09:53) PURITIS, HIVES, NAUSEA morphine [MORPHINE] Allergy (Unknown, Verified 02/14/23 09:53) PURITIS, HIVES, NAUSEA opium (anthroposophic) Allergy (Unknown, Verified 02/14/23 09:53) SENSATIVITY trazodone Allergy (Unknown, Verified 02/14/23 09:53) AMS zolpidem [Ambien] Allergy (Unknown, Verified 02/14/23 09:53) AMS Opium Allergy (Unknown, Uncoded 02/14/23 09:53) SENSATIVITY Medication List - Last Reconciled 02/14/23 by Doc Cortes MD No Known Home Meds Tobacco use date assessed: 02/14/23 Dental Screening Dental Screen Date: 02/14/23 Did you have a dental visit in the last 12 months?: No Did you have a dental problem in the last 6 months where you did not have access to dental care?: No Was dental information given to patient?: No HPI severe daily fatigue HPI Details had a vasectomy and c/o right groin pain PFSH Medical History (Updated 07/21/22 @ 14:56 by Doc Cortes MD) Anxiety Chronic post-traumatic stress disorder (PTSD) Depression Foot pain History of alcohol abuse History of seizure Hx of traumatic brain injury Insomnia Multiple lipomas Panic disorder PTSD (post-traumatic stress disorder) Smoker TBI (traumatic brain injury) Tobacco dependence Surgical History History of ankle surgery History of gastric bypass History of vasectomy Family History (Updated 02/14/23 @ 09:51 by KAN Richter) Father No problems noted. Mother No problems noted. Social History Household Members: None Housing: Apartment Are you a primary critical care unit nurse to a significant other at home: No Do you presently have visiting nurse or other home services: No Alcohol intake: former Patient Tobacco Use Status: Current everyday Tobacco user Tobacco use type: Cigarette Cigarette Packs Per Day: 2 Cigarettes Per Day: 40.0 e-Cigarette/Vaping Use: Never Used Second Hand Smoke Exposure: Yes Substance Use Type: Marijuana Advance Directives Date on File: 09/02/20 service: No Current occupational status: unemployed and disabled Current occupation: right handed Sexual orientation: Straight/Heterosexual Cognitive needs: Yes (cane) Hearing needs: No Vision needs: Yes (glasses) Questionnaire PHQ-9 Over the last 2 weeks, how often have you been bothered by any of the following problems? Depression Screening Interpretation: Positive Source: Developed by Drs. Harley Real, Rosalba Quintero, Kashif Foster and colleagues, with an educational ingrid from [employer]. Thrive Questionnaire Date Thrive assessed: 10/14/22 Currently or been in a relationship where the following occur: no concerns reported EMILY-7 AMB Questionnaire EMILY-7 Date EMILY - 7 assessed: 10/14/22 Source: Developed by Drs. Harley Real, Rosalba Quintero, Kashif Foster and colleagues, with an educational ingrid from [employer]. Review of Systems Const Denies chills, Denies headache(s) and Denies weight loss ENT Denies headache(s) Card Denies chest pain, Denies syncope, Denies irregular heart rhythm and Denies dyspnea Resp Denies chest congestion, Denies cough and Denies dyspnea GI Denies abdominal pain, Denies change in stool character, Denies nausea and Denies vomiting Musc Denies deformity and Denies joint swelling Neuro Denies syncope and Denies headache(s) Physical exam (Primary Care) Vital Signs: Last Vital Signs Pulse 54 02/14/23 09:53 BP 120/76 02/14/23 09:53 Pulse Ox 96 02/14/23 09:53 Oxygen Delivery Method Room Air 02/14/23 09:53 BMI result Body Mass Index 36.8 Tobacco/Smoking Status: Tobacco use Status Tobacco use date assessed 02/14/23 02/14/23 09:56 Patient Tobacco Use Status Current everyday Tobacco 02/14/23 09:56 Tobacco use type Cigarette 02/14/23 09:56 e-Cigarette/Vaping Use Never Used 02/14/23 09:56 Depression Screening Interpretation: Positive Thrive Assessment: Date of Thrive Assessment Date Thrive assessed 10/14/22 02/14/23 09:56 Currently or been in a relationship where the following occur: no concerns reported Const General: cooperative, comfortable and no acute distress Neck Neck: Yes normal visual inspection Chest Chest palpation & inspection: normal inspection of the chest Resp Effort & Inspection: normal respiratory effort Auscultation: clear to auscultation bilaterally Percussion: percussion normal Cardio Jugular venous distension: no JVD Rate: regular rate Rhythm: regular rhythm GI Other: groin nl Assessment and Plan Assessment & Plan (1) Groin discomfort: Code(s): R10.30 - Lower abdominal pain, unspecified Plan: ref urol Orders: Referrals Urology Referral R10.30 - Lower abdominal pain, unspecified Coding Level of Care Code Est Pt Level 3 (56436) Diagnoses Groin discomfort R10.30
[2023-02-14 09:53] VITALS: BP 120/76; PULSE 54; O2SAT 96; BMI 36.8
== END 2023-02-14 10:12 | disposition home or self-care (01) ==
PROVIDERS: PCP Internal Medicine; Visit Provider Internal Medicine
DX: R10.30 Lower abdominal pain, unspecified (principal)
CPT/HCPCS: 99213

== ENCOUNTER 2023-05-24 13:32 | Outpatient (AMB) | payer OTHER, SELFPAY ==
[2023-05-24 13:33] VITALS: BP 100/60; PULSE 60; O2SAT 94; BMI 38.1
--- NOTE | 2023-05-24 13:33 | MHC.PC.OV ---
Vital Signs 05/24/23 13:33 Height 5 ft 6 in Weight 236 lb BMI 38.1 BP 100/60 Blood Pressure Location Lt brachial Position Sitting Pulse 60 Pulse Source Pulse Oximeter Pulse Oximetry (%) 94 Oxygen Delivery Method Room Air Intake Visit Reasons: PE Third Mate Required: No Financial Reporting Accountant: Not Required per policy Accompanied by: Self / Same As Patient Allergies codeine [CODEINE] Allergy (Unknown, Verified 05/24/23 13:34) PURITIS, HIVES, NAUSEA morphine [MORPHINE] Allergy (Unknown, Verified 05/24/23 13:34) PURITIS, HIVES, NAUSEA opium (anthroposophic) Allergy (Unknown, Verified 05/24/23 13:34) SENSATIVITY trazodone Allergy (Unknown, Verified 05/24/23 13:34) AMS zolpidem [Ambien] Allergy (Unknown, Verified 05/24/23 13:34) AMS Opium Allergy (Unknown, Uncoded 05/24/23 13:34) SENSATIVITY Medication List - Last Reconciled 05/24/23 by Doc Cortes MD mirtazapine (Remeron) 15 mg PO DAILY Tobacco use date assessed: 02/14/23 Dental Screening Dental Screen Date: 05/24/23 Did you have a dental visit in the last 12 months?: No Did you have a dental problem in the last 6 months where you did not have access to dental care?: No Was dental information given to patient?: Patient has dentist HPI PE HPI Details chronic anxiety; doing well ON LICENSE OF [facility] Medical History (Updated 05/24/23 @ 13:58 by Doc Cortes MD) TBI (traumatic brain injury) Chronic post-traumatic stress disorder (PTSD) Tobacco dependence Smoker History of alcohol abuse History of seizure Hx of traumatic brain injury Insomnia Panic disorder PTSD (post-traumatic stress disorder) Foot pain Multiple lipomas Anxiety Depression Surgical History History of ankle surgery History of gastric bypass History of vasectomy Family History Father No problems noted. Mother No problems noted. Social History Household Members: None Housing: Apartment Are you a primary farm or ranch animal caretaker to a significant other at home: No Do you presently have visiting nurse or other home services: No Alcohol intake: former Patient Tobacco Use Status: Current everyday Tobacco user Tobacco use type: Cigarette Cigarette Packs Per Day: 2 Cigarettes Per Day: 40.0 e-Cigarette/Vaping Use: Never Used Second Hand Smoke Exposure: Yes Substance Use Type: Marijuana Advance Directives Date on File: 09/02/20 service: No Current occupational status: unemployed and disabled Current occupation: right handed Sexual orientation: Straight/Heterosexual Cognitive needs: Yes (cane) Hearing needs: No Vision needs: Yes (glasses) Questionnaire PHQ-9 Over the last 2 weeks, how often have you been bothered by any of the following problems? 1. Little interest or pleasure in doing things: more than half the days 2. Feeling down, depressed, or hopeless: more than half the days 3. Trouble falling or staying asleep, or sleeping too much: nearly every day 4. Feeling tired or having little energy: nearly every day 5. Poor appetite or overeating: more than half the days 6. Feeling bad about yourself - or that you are a failure or have let yourself or your family down: more than half the days 7. Trouble concentrating on things, such as reading the newspaper or watching television: more than half the days 8. Moving or speaking so slowly that other people could have noticed. Or the opposite - being so fidgety or restless that you have been moving around a lot more than usual: not at all 9. Thoughts that you would be better off or of hurting yourself in some way: not at all Total score: 16 Depression Screening Interpretation: Positive Depression Screening Follow-up: Existing condition Depression Screening Done: Yes 56696 - PHQ-9 Billing: Yes Source: Developed by Drs. Harley Real, Rosalba Quintero, Kashif Foster and colleagues, with an educational ingrid from [employer]. Thrive Questionnaire Date Thrive assessed: 10/14/22 AUDIT C Alcohol Use Questionnaire (AUDIT-C) 1. How often do you have a drink containing alcohol?: Never Total Score: 0 EMILY-7 AMB Questionnaire EMILY-7 Date EMILY - 7 assessed: 10/14/22 Feeling nervous, anxious, or on edge: 2 = More than half the days Not being able to stop or control worryin = More than half the days Worrying too much about different things: 2 = More than half the days Trouble relaxin = More than half the days Being so restless that it is hard to sit still: 2 = More than half the days Becoming easily annoyed or irritable: 0 = Not at all Feeling afraid as if something awful might happen: 3 = Nearly every day Total EMILY-7 score (0-4 normal; 5-9 mild; 10-14 moderate; 15-21 severe): 13 Source: Developed by Drs. Harley Real, Rosalba Quintero, Kashif Foster and colleagues, with an educational ingrid from [employer]. EMILY-7 Assessment Billing EMILY-7 Assessment Tool: EMILY-7 Assessment 41484 Review of Systems Const Denies chills, Denies fatigue, Denies headache(s) and Denies weight loss Eyes Denies change in vision, Denies diplopia and Denies eye pain ENT Denies vertigo, Denies dizziness, Denies headache(s) and Denies nasal discharge Card Denies chest pain, Denies rapid heart rate and Denies dyspnea on exertion Resp Denies chest congestion, Denies cough, Denies pain with cough and Denies dyspnea on exertion GI Denies abdominal pain, Denies hematochezia and Denies change in bowel habits Musc Denies myalgias, Denies arthralgias and Denies joint swelling Skin/Breast Denies lesions and Denies unusual bruising Neuro Denies vertigo, Denies dizziness, Denies headache(s) and Denies focal weakness Endo Denies fatigue Physical exam (Primary Care) Vital Signs: Last Vital Signs Pulse 60 05/24/23 13:33 BP 100/60 05/24/23 13:33 Pulse Ox 94 05/24/23 13:33 Oxygen Delivery Method Room Air 05/24/23 13:33 BMI result Body Mass Index 38.1 Tobacco/Smoking Status: Tobacco use Status Tobacco use date assessed 02/14/23 05/24/23 13:41 Patient Tobacco Use Status Current everyday Tobacco 05/24/23 13:41 Tobacco use type Cigarette 05/24/23 13:41 e-Cigarette/Vaping Use Never Used 05/24/23 13:41 PHQ-9: PHQ-9 Score PHQ-9: Total score 16 05/24/23 13:42 Depression Screening Interpretation: Positive Depression Screening Follow-up: Existing condition Thrive Assessment: Date of Thrive Assessment Date Thrive assessed 10/14/22 05/24/23 13:41 Const General: cooperative, healthy appearing and no acute distress Orientation/consciousness: oriented to person, oriented to place and oriented to time HENMT Head: Yes normal to inspection, Yes normocephalic and Yes atraumatic Mouth: Normal oral and palatal mucosa present and tongue normal Throat: Yes posterior oropharynx normal and Yes uvula midline Eyes General: appearance normal, both eyes and all related structures Neck Neck: Yes normal visual inspection, Yes full ROM and Yes no lymphadenopathy Thyroid: Thyroid normal Carotids: normal carotid upstroke Chest Chest palpation & inspection: normal inspection of the chest Resp Effort & Inspection: normal respiratory effort and able to speak in complete sentences Auscultation: clear to auscultation bilaterally Cardio Jugular venous distension: no JVD Palpation: normal PMI Rate: regular rate Rhythm: regular rhythm Heart sounds: S1 normal heart sound present and S2 normal heart sound present GI Inspection: Yes normal to inspection Palpation (GI): Soft to palpation and No hepatosplenomegaly present Auscultation: normal bowel sounds General: Yes no CVA tenderness Back/Spine/Pelvis Back: no CVA tenderness Skin General skin exam: no rashes or lesions noted Neuro General: oriented to person, oriented to place and oriented to time Extrem General: Yes normal to inspection and Yes full ROM Assessment and Plan Assessment & Plan (1) Physical exam: Code(s): Z00.00 - Encounter for general adult medical examination without abnormal findings Plan: labs (2) Anxiety: Code(s): F41.9 - Anxiety disorder, unspecified Plan: stable; same rx Orders: Orders Lipid Panel Today E78.5 - Hyperlipidemia, unspecified Comprehensive [place]. Panel Fast Today N28.9 - Disorder of kidney and ureter, unspecified Thyroid Stimulating Hormone Today E03.9 - Hypothyroidism, unspecified Complete Blood Count Auto Diff Today D64.9 - Anemia, unspecified Coding Level of Care Code Est Pt Prev Care 40-64y(38881) Diagnoses Physical exam Z00.00 Anxiety F41.9 Additional Codes EMILY-7 Assessment Billing - EMILY-7 Assessment Tool: EMILY-7 Assessment [id number] ([id number])
== END 2023-05-24 16:12 | disposition home or self-care (01) ==
PROVIDERS: PCP Internal Medicine; Visit Provider Internal Medicine
DX: Z00.00 Encounter for general adult medical examination without abnormal findings (principal); F41.9 Anxiety disorder, unspecified
CPT/HCPCS: 96127; 99396

== ENCOUNTER 2024-01-13 10:32 | Outpatient (AMB) | payer OTHER, SELFPAY ==
[2024-01-13 10:34] VITALS: BP 110/62; PULSE 60; O2SAT 94; BMI 41.2
--- NOTE | 2024-01-13 10:34 | A.OFFPC_ITS ---
Vital Signs 01/13/24 10:34 Height 5 ft 6 in Weight 255 lb BMI 41.2 BP 110/62 Blood Pressure Location Lt brachial Position Sitting Pulse 60 Pulse Source Pulse Oximeter Pulse Oximetry (%) 94 Oxygen Delivery Method Room Air Intake Visit Reasons: reg visit Supervisor Adult Education Required: No Postie: Present Allergies codeine [CODEINE] Allergy (Unknown, Verified 01/13/24 10:35) PURITIS, HIVES, NAUSEA morphine [MORPHINE] Allergy (Unknown, Verified 01/13/24 10:35) PURITIS, HIVES, NAUSEA opium (anthroposophic) Allergy (Unknown, Verified 01/13/24 10:35) SENSATIVITY trazodone Allergy (Unknown, Verified 01/13/24 10:35) AMS zolpidem [Ambien] Allergy (Unknown, Verified 01/13/24 10:35) AMS Opium Allergy (Unknown, Uncoded 01/13/24 10:35) SENSATIVITY Medication List - Last Reconciled 01/13/24 by Doc Cortes MD mirtazapine (Remeron) 15 mg PO DAILY Tobacco use date assessed: 01/13/24 Dental Screening Dental Screen Date: 01/13/24 Did you have a dental visit in the last 12 months?: No Did you have a dental problem in the last 6 months where you did not have access to dental care?: No Was dental information given to patient?: Patient has dentist HPI reg visit HPI Details fatigue and insomnia PFSH Medical History (Updated 01/13/24 @ 11:20 by Doc Cortes MD) TBI (traumatic brain injury) Chronic post-traumatic stress disorder (PTSD) Tobacco dependence Smoker History of alcohol abuse History of seizure Hx of traumatic brain injury Insomnia Panic disorder PTSD (post-traumatic stress disorder) Foot pain Multiple lipomas Anxiety Depression Surgical History History of ankle surgery History of gastric bypass History of vasectomy Family History Father No problems noted. Mother No problems noted. Social History Household Members: None Housing: Apartment Are you a primary out of school hours care worker to a significant other at home: No Do you presently have visiting nurse or other home services: No Alcohol intake: former Comment: sleeping Patient Tobacco Use Status: Current everyday Tobacco user Tobacco use type: Cigarette Cigarette Packs Per Day: 2 Cigarettes Per Day: 40.0 e-Cigarette/Vaping Use: Never Used Second Hand Smoke Exposure: Yes Substance Use Type: Marijuana Advance Directives Date on File: 09/02/20 service: No Current occupational status: unemployed and disabled Current occupation: right handed Sexual orientation: Straight/Heterosexual Cognitive needs: Yes (cane) Hearing needs: No Vision needs: Yes (glasses) Questionnaire PHQ-9 Over the last 2 weeks, how often have you been bothered by any of the following problems? 1. Little interest or pleasure in doing things: several days 2. Feeling down, depressed, or hopeless: several days 3. Trouble falling or staying asleep, or sleeping too much: nearly every day 4. Feeling tired or having little energy: more than half the days 5. Poor appetite or overeating: not at all 6. Feeling bad about yourself - or that you are a failure or have let yourself or your family down: not at all 7. Trouble concentrating on things, such as reading the newspaper or watching television: not at all 8. Moving or speaking so slowly that other people could have noticed. Or the opposite - being so fidgety or restless that you have been moving around a lot more than usual: not at all 9. Thoughts that you would be better off or of hurting yourself in some way: not at all Total score: 7 Depression Screening Interpretation: Positive Depression Screening Follow-up: Existing condition Depression Screening Done: Yes 15752 - PHQ-9 Billing: Yes Source: Developed by Drs. Harley Real, Rosalba Quintero, Kashif Foster and colleagues, with an educational ingrid from [employer]. Thrive Questionnaire Date Thrive assessed: 01/13/24 I am a: Patient What is your living situation today?: I have a steady place to live Within the past 12 months, did the food you bought not last and you didn't have the money to get more?: Never true Within the past 12 months, did you worry whether your food would run out before you got money to buy more?: Never true Do you have trouble paying for medicines?: No Do you have trouble getting transportation to medical appointments?: No Do you have trouble paying your heating and electricity bill?: No Do you have trouble taking care of your child, family member or friend?: No Do you have trouble with day-to-day activities such as bathing, preparing meals, shopping, managing finances, etc.?: No Are you currently unemployed and looking for a job?: No Are you interested in more education?: No Please select the resources that you would like help with: None THRIVE Score: 0 AUDIT C Alcohol Use Questionnaire (AUDIT-C) 1. How often do you have a drink containing alcohol?: Never Total Score: 0 EMILY-7 AMB Questionnaire EMILY-7 Date EMILY - 7 assessed: 01/13/24 Feeling nervous, anxious, or on edge: 0 = Not at all Not being able to stop or control worryin = Not at all Worrying too much about different things: 0 = Not at all Trouble relaxin = Not at all Being so restless that it is hard to sit still: 0 = Not at all Becoming easily annoyed or irritable: 0 = Not at all Feeling afraid as if something awful might happen: 0 = Not at all Total EMILY-7 score (0-4 normal; 5-9 mild; 10-14 moderate; 15-21 severe): 0 Source: Developed by Drs. Harley Real, Rosalba Quintero, Kashif Foster and colleagues, with an educational ingrid from [employer]. Review of Systems Const Denies chills, Denies headache(s) and Denies weight loss ENT Denies headache(s) Card Denies chest pain, Denies syncope, Denies irregular heart rhythm and Denies dyspnea Resp Denies chest congestion, Denies cough and Denies dyspnea GI Denies abdominal pain, Denies change in stool character, Denies nausea and Denies vomiting Musc Denies deformity and Denies joint swelling Neuro Denies syncope and Denies headache(s) Physical exam (Primary Care) Vital Signs: Last Vital Signs Pulse 60 01/13/24 10:34 BP 110/62 01/13/24 10:34 Pulse Ox 94 01/13/24 10:34 Oxygen Delivery Method Room Air 01/13/24 10:34 BMI result Body Mass Index 41.2 Tobacco/Smoking Status: Tobacco use Status Tobacco use date assessed 01/13/24 01/13/24 10:36 Patient Tobacco Use Status Current everyday Tobacco 01/13/24 10:36 Tobacco use type Cigarette 01/13/24 10:36 e-Cigarette/Vaping Use Never Used 01/13/24 10:36 PHQ-9: PHQ-9 Score PHQ-9: Total score 7 01/13/24 10:43 Depression Screening Interpretation: Positive Depression Screening Follow-up: Existing condition Thrive Assessment: Date of Thrive Assessment Date Thrive assessed 01/13/24 01/13/24 10:36 Const General: cooperative, comfortable, no acute distress and alert Neck Neck: Yes no lymphadenopathy Thyroid: Thyroid normal Resp Effort & Inspection: normal respiratory effort Auscultation: clear to auscultation bilaterally Percussion: percussion normal Cardio Jugular venous distension: no JVD Palpation: normal PMI Rate: regular rate Rhythm: regular rhythm Heart sounds: S1 normal heart sound present and S2 normal heart sound present GI Inspection: Yes normal to inspection Palpation (GI): No hepatosplenomegaly present Skin General skin exam: no rashes or lesions noted Extrem General: Yes no clubbing, cyanosis or edema Assessment and Plan Assessment & Plan (1) Fatigue: Code(s): R53.83 - Other fatigue Plan: do labs Orders: Orders Lipid Panel Today Z13.220 - Encounter for screening for lipoid disorders Thyroid Stimulating Hormone Today Z13.29 - Encounter for screening for other suspected endocrine disorder Comprehensive [place]. Panel Fast Today Z13.9 - Encounter for screening, unspecified Complete Blood Count Auto Diff Today Z13.0 - Encounter for screening for diseases of the blood and blood-forming organs and certain disorders involving the immune mechanism Referrals Podiatry Referral M79.673 - Pain in unspecified foot Coding Level of Care Code Est Pt Level 3 (83565) Diagnoses Fatigue R53.83
== END 2024-01-13 10:51 | disposition home or self-care (01) ==
PROVIDERS: PCP Internal Medicine; Visit Provider Internal Medicine
DX: R53.83 Other fatigue (principal)
CPT/HCPCS: 99213

== ENCOUNTER 2024-01-16 08:46 | Outpatient (REF) | payer OTHER, SELFPAY ==
[2024-01-16 09:06] LABS: MANUAL DIFF FLAG NO
[2024-01-16 09:34] LABS: Basophils Absolute Auto 0.1 X10*3/uL (0.0-0.2); Basophils Percent Auto 1.2 % (0-2); Eosinophils Absolute Auto 0.4 X10*3/uL (0.0-0.4); Eosinophils Percent Auto 4.9 % (0-4); Hematocrit 38.4 % (42.0-52.0); Hemoglobin 12.2 g/dl (14.0-18.0); Imm Gran Abs Auto 0.01 X10*3/uL (0.00-0.03); Imm Gran Pct Auto 0.1 % (0.0-0.4); Lymphocytes Absolute Auto 2.2 X10*3/uL (1.2-4.9); Lymphocytes Percent Auto 29.6 % (20-40); Mean Corpuscular HGB Conc 31.8 g/dl (31.0-36.0); Mean Corpuscular Hemoglobin 27.5 pg (27.0-33.0); Mean Corpuscular Volume 86.5 fL (80.0-98.0); Mean Platelet Volume 10.9 fL (9.4-12.4); Monocytes Absolute Auto 0.6 X10*3/uL (0.1-1.2); Monocytes Percent Auto 7.8 % (2-11); Neutrophils Absolute Auto 4.3 x10*3/uL (2.0-8.3); Neutrophils Percent Auto 56.4 % (45-73); Platelet Count 213 X10*3/uL (160-400); Red Blood Count 4.44 X10*6/uL (4.60-5.80); Red Cell Distribution Width 16.8 % (11.0-16.0); White Blood Count 7.5 X10*3/uL (4.8-10.8)
[2024-01-16 10:22] LABS: Alanine Aminotransferase 12 U/L (0-40); Albumin Level 3.8 g/dL (3.5-5.0); Alkaline Phosphatase 144 U/L (39-117); Anion Gap 13 (12-20); Aspartate Amino Transferase 13 U/L (5-37); Bilirubin Total 0.4 mg/dL (0.0-1.0); Blood Urea Nitrogen 9 mg/dL (9-16); Calcium 8.6 mg/dL (8.4-10.2); Carbon Dioxide 23 mmol/L (22-29); Chloride 110 mmol/L (96-108); Cholesterol 116 mg/dL (<200); Estimated Glomerular Filt Rate > 60; Glucose Fasting 91 mg/dL (60-99); HDL Cholesterol 26 mg/dL (>40); LDL Cholesterol Calculated 78 mg/dL (<100); Potassium 4.6 mmol/L (3.3-5.1); Sodium 141 mmol/L (135-145); Total Protein 6.8 g/dL (6.5-8.0); Triglycerides 60 mg/dL (<150)
[2024-01-16 10:39] LABS: Thyroid Stimulating Hormone 2.13 uIU/mL (0.32-4.0)
== END 2024-01-16 08:47 | disposition home or self-care (01) ==
LOC: HO.LAB 08:46
PROVIDERS: PCP Internal Medicine; Visit Provider Internal Medicine
DX: Z13.29 Encounter for screening for other suspected endocrine disorder (principal); E78.5 Hyperlipidemia, unspecified; N28.9 Disorder of kidney and ureter, unspecified; D64.9 Anemia, unspecified
CPT/HCPCS: 36415; 80053; 80061; 84443; 85025

== ENCOUNTER 2024-03-08 11:33 | Outpatient (AMB) | payer OTHER, SELFPAY ==
[2024-03-08 11:34] VITALS: BP 118/78; PULSE 108; O2SAT 96; BMI 40.2
--- NOTE | 2024-03-08 11:34 | A.OFFPC_ITS ---
Vital Signs 03/08/24 11:34 Height 5 ft 6 in Weight 249 lb BMI 40.2 BP 118/78 Blood Pressure Location Lt brachial Position Sitting Pulse 108 H Pulse Source Pulse Oximeter Pulse Oximetry (%) 96 Oxygen Delivery Method Room Air Intake Visit Reasons: check up f/u Allergies codeine [CODEINE] Allergy (Unknown, Verified 03/08/24 11:34) PURITIS, HIVES, NAUSEA morphine [MORPHINE] Allergy (Unknown, Verified 03/08/24 11:34) PURITIS, HIVES, NAUSEA opium (anthroposophic) Allergy (Unknown, Verified 03/08/24 11:34) SENSATIVITY trazodone Allergy (Unknown, Verified 03/08/24 11:34) AMS zolpidem [Ambien] Allergy (Unknown, Verified 03/08/24 11:34) AMS Opium Allergy (Unknown, Uncoded 03/08/24 11:34) SENSATIVITY Medication List - Last Reconciled 03/09/24 by Doc Cortes MD mirtazapine (Remeron) 15 mg PO DAILY Tobacco use date assessed: 01/13/24 Dental Screening Dental Screen Date: 01/13/24 HPI check up f/u HPI Details post traumatic stress disorder; sees mental health and doing well; compliant [facility] Medical History (Updated 01/13/24 @ 11:20 by Doc Cortes MD) TBI (traumatic brain injury) Chronic post-traumatic stress disorder (PTSD) Tobacco dependence Smoker History of alcohol abuse History of seizure Hx of traumatic brain injury Insomnia Panic disorder PTSD (post-traumatic stress disorder) Foot pain Multiple lipomas Anxiety Depression Surgical History History of ankle surgery History of gastric bypass History of vasectomy Family History Father No problems noted. Mother No problems noted. Social History Household Members: None Housing: Apartment Are you a primary transition of care specialist to a significant other at home: No Do you presently have visiting nurse or other home services: No Alcohol intake: former Comment: sleeping Patient Tobacco Use Status: Current everyday Tobacco user Tobacco use type: Cigarette Cigarette Packs Per Day: 2 Cigarettes Per Day: 40.0 e-Cigarette/Vaping Use: Never Used Second Hand Smoke Exposure: Yes Substance Use Type: Marijuana Advance Directives Date on File: 09/02/20 service: No Current occupational status: unemployed and disabled Current occupation: right handed Sexual orientation: Straight/Heterosexual Cognitive needs: Yes (cane) Hearing needs: No Vision needs: Yes (glasses) Questionnaire PHQ-9 Over the last 2 weeks, how often have you been bothered by any of the following problems? 1. Little interest or pleasure in doing things: several days 2. Feeling down, depressed, or hopeless: several days 3. Trouble falling or staying asleep, or sleeping too much: nearly every day 4. Feeling tired or having little energy: more than half the days 5. Poor appetite or overeating: not at all 6. Feeling bad about yourself - or that you are a failure or have let yourself or your family down: not at all 7. Trouble concentrating on things, such as reading the newspaper or watching television: not at all 8. Moving or speaking so slowly that other people could have noticed. Or the opposite - being so fidgety or restless that you have been moving around a lot more than usual: not at all 9. Thoughts that you would be better off or of hurting yourself in some way: not at all Total score: 7 Depression Screening Interpretation: Positive Depression Screening Follow-up: Existing condition Depression Screening Done: Yes 12491 - PHQ-9 Billing: Yes Source: Developed by Drs. Harley Real, Rosalba Quintero, Kashif Foster and colleagues, with an educational ingrid from [employer]. Thrive Questionnaire Date Thrive assessed: 01/13/24 AUDIT C Alcohol Use Questionnaire (AUDIT-C) 1. How often do you have a drink containing alcohol?: Never Total Score: 0 EMILY-7 AMB Questionnaire EMILY-7 Date EMILY - 7 assessed: 01/13/24 Source: Developed by Drs. Harley Real, Rosalba Quintero, Kashif Foster and colleagues, with an educational ingrid from [employer]. Review of Systems Const Denies chills, Denies headache(s) and Denies weight loss ENT Denies headache(s) Card Denies chest pain, Denies syncope, Denies irregular heart rhythm and Denies dyspnea Resp Denies chest congestion, Denies cough and Denies dyspnea GI Denies abdominal pain, Denies change in stool character, Denies nausea and Denies vomiting Musc Denies deformity and Denies joint swelling Neuro Denies syncope and Denies headache(s) Physical exam (Primary Care) Vital Signs: Last Vital Signs Pulse 108 H 03/08/24 11:34 BP 118/78 03/08/24 11:34 Pulse Ox 96 03/08/24 11:34 Oxygen Delivery Method Room Air 03/08/24 11:34 BMI result Body Mass Index 40.2 Tobacco/Smoking Status: Tobacco use Status Tobacco use date assessed 01/13/24 03/08/24 11:39 Patient Tobacco Use Status Current everyday Tobacco 03/08/24 11:39 Tobacco use type Cigarette 03/08/24 11:39 e-Cigarette/Vaping Use Never Used 03/08/24 11:39 PHQ-9: PHQ-9 Score PHQ-9: Total score 7 03/08/24 11:39 Depression Screening Interpretation: Positive Depression Screening Follow-up: Existing condition Thrive Assessment: Date of Thrive Assessment Date Thrive assessed 01/13/24 03/08/24 11:39 Const General: cooperative, comfortable, no acute distress and alert Neck Neck: Yes no lymphadenopathy Thyroid: Thyroid normal Resp Effort & Inspection: normal respiratory effort Auscultation: clear to auscultation bilaterally Percussion: percussion normal Cardio Jugular venous distension: no JVD Palpation: normal PMI Rate: regular rate Rhythm: regular rhythm Heart sounds: S1 normal heart sound present and S2 normal heart sound present GI Inspection: Yes normal to inspection Palpation (GI): No hepatosplenomegaly present Skin General skin exam: no rashes or lesions noted Extrem General: Yes no clubbing, cyanosis or edema Assessment and Plan Assessment & Plan (1) Chronic post-traumatic stress disorder (PTSD): Code(s): F43.12 - Post-traumatic stress disorder, chronic Plan: as per psych Orders: Referrals Gastroenterology Referral R10.9 - Unspecified abdominal pain Coding Level of Care Code Est Pt Level 3 (26295) Diagnoses Chronic post-traumatic stress disorder (PTSD) F43.12
== END 2024-03-08 12:07 | disposition home or self-care (01) ==
PROVIDERS: PCP Internal Medicine; Visit Provider Internal Medicine
DX: F43.12 Post-traumatic stress disorder, chronic (principal)
CPT/HCPCS: 99213

== ENCOUNTER 2024-06-27 10:33 | Outpatient (REF) | payer OTHER, SELFPAY ==
[2024-06-27 10:44] LABS: MANUAL DIFF FLAG NO
[2024-06-27 10:57] LABS: Basophils Absolute Auto 0.1 X10*3/uL (0.0-0.2); Eosinophils Absolute Auto 0.3 X10*3/uL (0.0-0.4); Eosinophils Percent Auto 5.3 % (0-4); Hemoglobin 12.6 g/dl (14.0-18.0); Imm Gran Abs Auto 0.01 X10*3/uL (0.00-0.03); Imm Gran Pct Auto 0.2 % (0.0-0.4); Lymphocytes Absolute Auto 1.9 X10*3/uL (1.2-4.9); Lymphocytes Percent Auto 31.6 % (20-40); Mean Corpuscular HGB Conc 31.5 g/dl (31.0-36.0); Mean Corpuscular Hemoglobin 27.2 pg (27.0-33.0); Mean Corpuscular Volume 86.4 fL (80.0-98.0); Mean Platelet Volume 10.6 fL (9.4-12.4); Monocytes Absolute Auto 0.6 X10*3/uL (0.1-1.2); Monocytes Percent Auto 9.2 % (2-11); Neutrophils Absolute Auto 3.2 x10*3/uL (2.0-8.3); Neutrophils Percent Auto 52.7 % (45-73); Platelet Count 226 X10*3/uL (160-400); Red Blood Count 4.63 X10*6/uL (4.60-5.80); Red Cell Distribution Width 16.6 % (11.0-16.0); White Blood Count 6.1 X10*3/uL (4.8-10.8)
[2024-06-27 11:33] LABS: Alanine Aminotransferase 12 U/L (0-40); Albumin Level 3.7 g/dL (3.5-5.0); Alkaline Phosphatase 140 U/L (39-117); Amylase 44 U/L (28-100); Aspartate Amino Transferase 19 U/L (5-37); Bilirubin Direct 0.2 mg/dL (0.0-0.5); Bilirubin Total 0.5 mg/dL (0.0-1.0); Lipase 16 U/L (8-78); Total Protein 6.8 g/dL (6.5-8.0)
== END 2024-06-27 10:34 | disposition home or self-care (01) ==
LOC: HO.LAB 10:33
PROVIDERS: PCP Internal Medicine; Visit Provider Internal Medicine
DX: K21.9 Gastro-esophageal reflux disease without esophagitis (principal); R10.13 Epigastric pain
CPT/HCPCS: 36415; 80076; 82150; 83690; 85025

== ENCOUNTER 2024-06-28 12:10 | Day surgery (SDC) | payer OTHER, SELFPAY ==
[2024-06-28] MEDS: Lactated Ringers 1,000 ML 80 ML IVCONT (12:32)
[2024-06-28 12:53] VITALS: BP 117/70; PULSE 52; RESP 18; TEMP 36.6; O2SAT 97
[2024-06-28 12:54] VITALS: BMI 37.1
--- NOTE | 2024-06-28 13:32 | HO.ANESPROP2 ---
[facility] Active Problems Active Problems: All Active Problems Physical exam (Acute) Cough (Acute) TBI (traumatic brain injury) (Chronic) Chronic post-traumatic stress disorder (PTSD) (Acute) Anxiety (Acute) Tremors of nervous system (Acute) Fatigue (Acute) S/P hardware removal (Acute) Painful orthopaedic hardware (Acute) Ankle pain (Acute) Leg pain (Acute) Foot pain (Acute) Multiple lipomas (Acute) Past Medical History Medical History TBI (traumatic brain injury) Chronic post-traumatic stress disorder (PTSD) Tobacco dependence Smoker History of alcohol abuse History of seizure Hx of traumatic brain injury Insomnia Panic disorder PTSD (post-traumatic stress disorder) Foot pain Multiple lipomas Anxiety Depression Family History Family History Father No problems noted. Mother No problems noted. Family history of problems with anesthesia: No Surgical History Surgical History History of ankle surgery History of gastric bypass History of vasectomy History of Problems with Anesthesia: No Social History Social History Household Members: None Housing: Apartment Are you a primary home care music therapist to a significant other at home: No Do you presently have visiting nurse or other home services: No Alcohol intake: former Comment: sleeping Patient Tobacco Use Status: Current everyday Tobacco user Tobacco use type: Cigarette Cigarette Packs Per Day: 2 Cigarettes Per Day: 40.0 Smoked in Last 30 Days: Yes e-Cigarette/Vaping Use: Never Used Patient Interested in Nicotine Replacement: No Second Hand Smoke Exposure: Yes Substance Use Type: Marijuana Substance Use Frequency: Daily Have you been hit, kicked, punched, or otherwise hurt by someone within the past year? If so, by whom?: No Are you DNR?: No Advance Directives: No Advance Directives Information Provided: Yes Advance Directives Date on File: 09/02/20 Recently lost weight without trying: No Nutrition Risks: No Nutritional Risk service: No Current occupational status: unemployed and disabled Current occupation: right handed Sexual orientation: Straight/Heterosexual Cognitive needs: Yes (cane) Hearing needs: No Vision needs: Yes (glasses) Meds Allergies Allergy/AdvReac Type Severity Reaction Status Date / Time codeine [CODEINE] Allergy Unknown PURITIS, Verified 06/28/24 12:57 HIVES, NAUSEA morphine [MORPHINE] Allergy Unknown PURITIS, Verified 06/28/24 12:57 HIVES, NAUSEA opium (anthroposophic) Allergy Unknown SENSATIVITY Verified 06/28/24 12:57 trazodone Allergy Unknown AMS Verified 06/28/24 12:57 zolpidem [Ambien] Allergy Unknown AMS Verified 06/28/24 12:57 Opium Allergy Unknown SENSATIVITY Uncoded 06/28/24 12:57 Active Medications: Current Medications Lactated Ringer's (Lr) 1,000 mls @ 80 mls/hr IVCONT .[id number] KENDALL Last Admin: 06/28/24 12:32 Dose: 80 mls/hr Home Medications ?Medication ?Instructions ?Recorded ?Confirmed ?Last Taken ?Type mirtazapine 15 mg tablet (Remeron) 15 mg PO DAILY 05/24/23 06/28/24 Unknown History famotidine 20 mg tablet 20 mg PO BID 06/27/24 06/28/24 Unknown History hydroxyzine pamoate 25 mg capsule 25 - 50 mg PO NEEDED 06/27/24 06/28/24 Unknown History trazodone 50 mg tablet 50 mg PO BEDTIME 06/27/24 06/28/24 Unknown History Exam Height,Weight and Vital Signs: Height 5 ft 7 in Weight 107.501 kg Last Vital Signs Temp 97.9 F 06/28/24 12:53 Pulse 52 06/28/24 12:53 Resp 18 06/28/24 12:53 BP 117/70 06/28/24 12:53 Pulse Ox 97 06/28/24 12:53 O2 Del Method Room Air 06/28/24 12:53 Airway Mallampati Class: II TM Dist: >3cm Neck ROM: Full Partial: Lower Loose/Missing/Broken Teeth: Yes and Upper Assessment and Plan Assessment Anesthesia Assessment: Anesthesia Plan Discussed and Chart Reviewed Final Anesthetic Review Family History of Problems with Anesthesia: No History of Problems with Anesthesia: No NPO: Yes ASA Class: III Final Preanesthetic Review: No Changes in Pt Med Stat, Meds/Allgs Chart Reviewed, Consent Obtained/Reviewed and Anes Risks/Benef Reviewed Patient Risk: Intermediate Procedure Risk: Low Anesthetic Plan Anesthetic Plan: TIVA Disposition: Standard PACU
[2024-06-28 14:04] VITALS: BP 131/62; PULSE 55; RESP 14; TEMP 36.3; O2SAT 95
[2024-06-28 14:19] VITALS: BP 124/70; PULSE 84; RESP 18; O2SAT 98
--- NOTE | 2024-06-28 14:25 | PM.OP ---
Brief Operative Note Date of Service: 06/28/24 Pre-op diagnosis: Abdominal pain Post-op diagnosis: other (Erosive esophagitis) Procedure: EGD with biopsies Surgeon: Harley Nicholas MD Anesthesia: MAC Was an Sports Information Director used for this Procedure?: No Estimated blood loss (mL): 2.0 Pathology: other (A. EG Junction at 35cm) Condition: stable Disposition: PACU
[2024-06-28 14:34] VITALS: BP 131/69; PULSE 53; RESP 18; TEMP 36.6; O2SAT 98
--- NOTE | 2024-06-29 01:25 | OP_ITS ---
DATE OF SERVICE: 06/28/2024 SURGEON: Harley Nicholas MD INDICATIONS: The patient presents for evaluation of abdominal pain. Full consent has been obtained from him for this, including risks of bleeding and perforation. PREOPERATIVE DIAGNOSIS: Abdominal pain. POSTOPERATIVE DIAGNOSIS: PROCEDURE PERFORMED: Upper endoscopy with biopsies. ESTIMATED BLOOD LOSS: COMPLICATIONS: ANESTHESIA: Medication used, monitored anesthesia care. ASSISTANTS: SPECIMENS: POSTOPERATIVE DIAGNOSES: Abdominal pain, erosive esophagitis. DESCRIPTION OF PROCEDURE: The patient was placed in the left lateral decubitus position. The Olympus video gastroscope was passed in the posterior oropharynx and upper esophagus under direct vision. The scope was passed slowly to the distal esophagus. The gastroesophageal junction appeared at 35 cm. This area was notable for some ulcerations, edema, and friability. There was no mass, stricture, nor any obvious evidence of mucosa. The scope easily entered into the stomach, which was a small gastric remnant. The gastric remnant mucosa appeared normal. The anastomosis from his previous gastric bypass was seen at 40 cm. This appeared patent and without any sign of ulceration nor stricture. A couple metal jeremy were noted. I was able to cannulate the small bowel limb for least 30 or 40 cm and the mucosa appeared normal. The scope was withdrawn back to the level of the anastomosis, which appeared normal. There also appeared to be a 2nd lumen with a short segment of small bowel that also appeared normal. I did not advance very far in that. The scope was withdrawn back in the gastric remnant, which was normal both in forward viewing and retroflexed positions. The scope was withdrawn back in the esophagus. Biopsies were obtained at the EG junction at 35 cm. Proximal to that, the esophageal mucosa appeared normal. The scope was withdrawn from the patient. He tolerated the procedure well and was returned to the recovery area in stable condition. IMPRESSION: Erosive esophagitis. PLAN: The results of biopsies will be checked. He did just start on omeprazole 40 mg daily in regard to symptoms. I shall continue him on that, although based on his anatomy, he obviously does not make much if any acid. I am going to start him on a Carafate suspension to use 4 times a day as well. He was advised to avoid all aspirin and NSAIDs, including his [id number] medication that he uses called [facility] Pain medication. I told him to stop that as that contains aspirin in it. He will be seen in followup in the office. At that visit, I will plan to schedule a screening colonoscopy for him. Hopefully, the Carafate and the omeprazole will help him improve symptomatically, although I did advise him to call me prior to the appointment if he has any problems or questions. This has been discussed with his friend, Tony. MD MED Perez/PAPI / [phone]
== END 2024-06-28 14:46 | disposition home or self-care (01) ==
PROVIDERS: PCP Internal Medicine; Visit Provider Internal Medicine
PROC: 0DJ08ZZ Inspection of Upper Intestinal Tract, Via Natural or Artificial Opening Endoscopic (ICD-10-PCS; CPT 43235; principal; 2024-06-28 13:30)
DX: R10.13 Epigastric pain (principal); K20.80 Other esophagitis without bleeding; K21.9 Gastro-esophageal reflux disease without esophagitis; Z98.0 Intestinal bypass and anastomosis status; Z98.84 Bariatric surgery status; F43.12 Post-traumatic stress disorder, chronic; F41.9 Anxiety disorder, unspecified; E66.9 Obesity, unspecified; Z68.37 Body mass index [BMI] 37.0-37.9, adult; Z98.52 Vasectomy status; Z79.899 Other long term (current) drug therapy; Z88.5 Allergy status to narcotic agent; Z88.8 Allergy status to other drugs, medicaments and biological substances; Z90.49 Acquired absence of other specified parts of digestive tract; Z98.890 Other specified postprocedural states; F17.210 Nicotine dependence, cigarettes, uncomplicated; Z56.0 Unemployment, unspecified
CPT/HCPCS: 43239; 88305; 88312; J2003; J2704

== ENCOUNTER 2024-08-23 11:04 | Outpatient (AMB) | payer OTHER, SELFPAY ==
--- NOTE | 2024-08-23 11:05 | MHC.PC.OV ---
Intake Visit Reasons: Tremors/Twitches/[phone] Allergies codeine [CODEINE] Allergy (Unknown, Verified 08/23/24 11:06) PURITIS, HIVES, NAUSEA morphine [MORPHINE] Allergy (Unknown, Verified 08/23/24 11:06) PURITIS, HIVES, NAUSEA opium (anthroposophic) Allergy (Unknown, Verified 08/23/24 11:06) SENSATIVITY trazodone Allergy (Unknown, Verified 08/23/24 11:06) AMS zolpidem [Ambien] Allergy (Unknown, Verified 08/23/24 11:06) AMS Opium Allergy (Unknown, Uncoded 08/23/24 11:06) SENSATIVITY Medication List - Last Reconciled 08/23/24 by Doc Cortes MD famotidine 20 mg PO BID hydroxyzine pamoate 25 - 50 mg PO NEEDED mirtazapine (Remeron) 15 mg PO DAILY trazodone 50 mg PO BEDTIME Tobacco use date assessed: 08/23/24 Dental Screening Dental Screen Date: 08/23/24 Did you have a dental visit in the last 12 months?: Yes Did you have a dental problem in the last 6 months where you did not have access to dental care?: No Was dental information given to patient?: Patient has dentist HPI Tremors/Twitches/[phone] HPI Details wants a second opinion with neuro re tremors [facility] Medical History (Updated 08/23/24 @ 12:23 by Doc Cortes MD) TBI (traumatic brain injury) Chronic post-traumatic stress disorder (PTSD) Tobacco dependence Smoker History of alcohol abuse History of seizure Hx of traumatic brain injury Insomnia Panic disorder PTSD (post-traumatic stress disorder) Foot pain Multiple lipomas Anxiety Depression Surgical History History of ankle surgery History of gastric bypass History of vasectomy Family History Father No problems noted. Mother No problems noted. Social History Household Members: None Housing: Apartment Are you a primary healthcare interpreter to a significant other at home: No Do you presently have visiting nurse or other home services: No Alcohol intake: former Comment: sleeping Patient Tobacco Use Status: Current everyday Tobacco user Tobacco use type: Cigarette Cigarette Packs Per Day: 2 Cigarettes Per Day: 40.0 e-Cigarette/Vaping Use: Never Used Second Hand Smoke Exposure: Yes Substance Use Type: Marijuana Advance Directives Date on File: 09/02/20 service: No Current occupational status: unemployed and disabled Current occupation: right handed Sexual orientation: Straight/Heterosexual Cognitive needs: Yes (cane) Hearing needs: No Vision needs: Yes (glasses) Questionnaire PHQ-9 Over the last 2 weeks, how often have you been bothered by any of the following problems? 1. Little interest or pleasure in doing things: several days 2. Feeling down, depressed, or hopeless: several days 3. Trouble falling or staying asleep, or sleeping too much: nearly every day 4. Feeling tired or having little energy: more than half the days 5. Poor appetite or overeating: not at all 6. Feeling bad about yourself - or that you are a failure or have let yourself or your family down: not at all 7. Trouble concentrating on things, such as reading the newspaper or watching television: not at all 8. Moving or speaking so slowly that other people could have noticed. Or the opposite - being so fidgety or restless that you have been moving around a lot more than usual: not at all 9. Thoughts that you would be better off or of hurting yourself in some way: not at all Total score: 7 Depression Screening Interpretation: Positive Depression Screening Follow-up: Existing condition Depression Screening Done: Yes 15456 - PHQ-9 Billing: Yes Source: Developed by Drs. Harley Real, Rosalba Quintero, Kashif Foster and colleagues, with an educational ingrid from [employer]. Thrive Questionnaire Date Thrive assessed: 08/23/24 I am a: Patient What is your living situation today?: I have a steady place to live Within the past 12 months, did the food you bought not last and you didn't have the money to get more?: Never true Within the past 12 months, did you worry whether your food would run out before you got money to buy more?: Never true Do you have trouble paying for medicines?: No Do you have trouble getting transportation to medical appointments?: No Do you have trouble paying your heating and electricity bill?: No Do you have trouble taking care of your child, family member or friend?: No Do you have trouble with day-to-day activities such as bathing, preparing meals, shopping, managing finances, etc.?: No Are you currently unemployed and looking for a job?: No Are you interested in more education?: No Currently or been in a relationship where the following occur: No concerns reported THRIVE Score: 0 AUDIT C Alcohol Use Questionnaire (AUDIT-C) 1. How often do you have a drink containing alcohol?: Never Total Score: 0 EMILY-7 AMB Questionnaire EMILY-7 Date EMILY - 7 assessed: 08/23/24 Feeling nervous, anxious, or on edge: 0 = Not at all Not being able to stop or control worryin = Not at all Worrying too much about different things: 0 = Not at all Trouble relaxin = Not at all Being so restless that it is hard to sit still: 0 = Not at all Becoming easily annoyed or irritable: 0 = Not at all Feeling afraid as if something awful might happen: 0 = Not at all Total EMILY-7 score (0-4 normal; 5-9 mild; 10-14 moderate; 15-21 severe): 0 Source: Developed by Drs. Harley Real, Rosalba Quintero, Kashif Foster and colleagues, with an educational ingrid from [employer]. Review of Systems Const Denies chills, Denies headache(s) and Denies weight loss ENT Denies headache(s) Card Denies chest pain, Denies syncope, Denies irregular heart rhythm and Denies dyspnea Resp Denies chest congestion, Denies cough and Denies dyspnea GI Denies abdominal pain, Denies change in stool character, Denies nausea and Denies vomiting Musc Denies deformity and Denies joint swelling Neuro Denies syncope and Denies headache(s) Physical exam (Primary Care) Tobacco/Smoking Status: Tobacco use Status Tobacco use date assessed 08/23/24 08/23/24 11:07 Patient Tobacco Use Status Current everyday Tobacco 08/23/24 11:07 Tobacco use type Cigarette 08/23/24 11:07 e-Cigarette/Vaping Use Never Used 08/23/24 11:07 PHQ-9: PHQ-9 Score PHQ-9: Total score 7 08/23/24 11:07 Depression Screening Interpretation: Positive Depression Screening Follow-up: Existing condition Thrive Assessment: Date of Thrive Assessment Date Thrive assessed 08/23/24 08/23/24 11:07 Currently or been in a relationship where the following occur: No concerns reported Telehealth Telehealth Telehealth Platform: Telephone Location of provider rendering services: practice address Location of patient: address on file Patient Identification confirmed using: Name, : Yes Telehealth method: voice only Patient verbally consented to treatment: Yes Patient verbally consented to billing insurance company: Yes Patient informed of any privacy concerns related to visit: Yes Minutes spent on Phone/Video with Pt.: 15 (telephone) Coding Level of Care Code Tele Est Pt Level 3 (61423) Diagnoses Tremors of nervous system R25.1 Additional Codes PHQ-9 - 38314 - PHQ-9 Billing: Yes ([id number]) Assessment & Plan Assessment & Plan (1) Tremors of nervous system: Code(s): R25.1 - Tremor, unspecified Category: Medical Plan: referred Orders: Orders RT home sleep study Today G47.33 - Obstructive sleep apnea (adult) (pediatric) Referrals Neurology Referral R25.1 - Tremor, unspecified
--- OUTSIDE RECORDS SUMMARY | 2024-08-23 11:09 | XMS_ITS | Clinical Summary ---
Author Organization 175 [facility] Address [address] [place] [address] Phone Care Team Providers Care Email Administrator Name Role Phone Doc Cortes MD Primary Care Provider [phone] Allergies Active Allergy Reactions Criticality Noted Date Comments Codeine 06/22/2024 Pruritus Morphine 06/22/2024 Opium (Anthroposophic) 06/22/2024 Trazodone 06/22/2024 Zolpidem 06/22/2024 Medications Medication Sig Dispensed Refills Start Date End Date Status mirtazapine (REMERON) 15 mg tablet Take 1 tablet (15 mg total) by mouth at bedtime. Active meloxicam (Mobic) 15 mg tablet Take 1 tablet (15 mg total) by mouth 1 (one) time each day. 30 each 11 07/26/2024 07/26/2025 Active Active Problems Problem Noted Date Diagnosed Date Foot pain 06/22/2024 TBI (traumatic brain injury) 06/22/2024 Smoker 06/22/2024 History of alcohol abuse 06/22/2024 Multiple lipomas 06/22/2024 Anxiety 06/22/2024 Depression 06/22/2024 PTSD (post-traumatic stress disorder) 06/22/2024 Encounters Date Type Department Care Team Description 07/26/2024 11:00 AM EST Consult Orthopedic Surgery - [place] [address] [facility] [address] [place] [address] Ian Lockhart, DPM Chronic gout involving toe without tophus, unspecified cause, unspecified laterality (Primary Dx); Neuritis from Last 3 Months Social History Tobacco Use Types Packs/Day Years Used Date Smoking Tobacco: Never Assessed Sex and Gender Information Value Date Recorded Sex Assigned at Not on file Gender Identity Not on file Sexual Orientation Not on file Job Start Date Occupation Industry Not on file Not on file Not on file Last Filed Vital Signs Vital Sign Reading Time Taken Comments Blood Pressure - - Pulse - - Temperature - - Respiratory Rate - - Oxygen Saturation - - Inhaled Oxygen Concentration - - Weight 116 kg (255 lb) 07/26/2024 11:03 AM EST Height 167.6 cm (5' 6 ) 07/26/2024 11:03 AM EST Body Mass Index 41.16 07/26/2024 11:03 AM EST Plan of Treatment Upcoming Encounters Date Type Department Care Team (Late st Contact Info) Description 09/18/2024 10:30 AM EST Office Visit Orthopedic Surgery - [place] [address] [phone] Ian Lockhart, DPOrtega [address] [address] 10/22/2024 2:00 PM EDT Appointment [facility] [address] [place] [phone] Health Maintenance Due Date Last Done Comments Pneumococcal Vaccine: Pediatrics (0 to 5 Years) and At-Risk Patients (6 to 64 Years) (1 of 2 - PCV) 1975 Hepatitis B Vaccines (1 of 3 - 19+ 3-dose series) 1988 Zoster Vaccines (1 of 2) 1988 Colorectal Cancer Screening: Colonoscopy 06/20/2022 HIV Screening 06/20/2022 Medicare Annual Wellness Visit 06/20/2022 Social Influencers of Health Screening 06/20/2022 Depression Screening 01/15/2023 01/15/2022 COVID-19 Vaccine (2023-2 5 season) 2024 01/01/2022, 12/02/2020, 11/05/2020 Influenza Vaccine (#1) 2024 DTaP,Tdap,and Td Vaccines (2 - Tdap) 05/04/2026 05/04/2016 Cholesterol Screening (Lipid Panel) 11/11/2026 11/11/2021 Hepatitis C Screening Completed 11/11/2021 HIB Vaccines Aged Out No longer eligi ble based on patient's age to complete this topic HPV Vaccines Aged Out No longer eligi ble based on patient's age to complete this topic Hepatitis A Vaccines Aged Out No long er eligible based on patient's age to complete this topic IPV Vaccines Aged Out No longer eligi ble based on patient's age to complete this topic MMR Vaccines Aged Out No longer eligi ble based on patient's age to complete this topic Meningococcal ACWY Vaccine Aged Out N o longer eligible based on patient's age to complete this topic RSV Immunization Patients Under 20 months Aged Out No longer eligible b ased on patient's age to complete this topic Varicella Vaccines Aged Out No longer eligible based on patient's age to complete this topic Procedures Procedure Name Priority Date/Time Associated Diagnosis Comments URIC ACID Routine 07/30/2024 11:17 AM EST Chronic gout involving toe without tophus, unspecified cause, unspecified laterality from Last 3 Months Results * Uric acid (07/30/2024 11:17 AM EST) Uric Acid 6.4 3.7 - 9.2 mg/dL LAB CHEMISTRY METHOD 07/30/2024 5:34 PM EST [facility] Blood Venous blood specimen / Unknown Venipuncture / Unknown 07/30/2024 11:17 AM EST 07/30/2024 11:17 AM EST Ian Lockhart DPM LAB BLOOD ORDERAB LES [facility] [address] [place] [address], from Last 3 Months Care Teams Email Administrator Relationship Specialty Start Date End Date Doc Cortes MD [address] [place] [address] PCP - General Internal Medicine 07/24/21
--- OUTSIDE RECORDS SUMMARY | 2024-08-23 11:09 | XMS_ITS | Encounter Summary ---
Author Organization [facility] Address [address] [place] [address] Care Team Providers Care Livestock Trader Name Role Phone Doc Cortes MD Primary Care Provider [phone] Reason for Referral * Neurology (Routine) - Authorized Specialty Diagnoses / Procedures Referred By Claudia polanco Referred To Contact Neurology Diagnoses Chronic gout involving toe without tophus, unspecified cause, unspecified laterality Neuritis Procedures EMG two limbs Ian Lockhart DPM [address] [address] [facility] [address] [place] [phone] Referral ID Status Reason Start Date Expiration Date V isits Requested Visits Authorized [id number] Authorized 07/26/2024 07/26/2025 1 1 Reason for Visit * Reason Comments Foot Problem Pain in unspecified foot Encounter Details Date Type Department Care Team (Late st Contact Info) Description 07/26/2024 11:00 AM EST Consult Orthopedic Surgery - [place] [address] [phone] Ian Lockhart DPM [address] [address] Chronic gout involving toe without tophus, unspecified cause, unspecified laterality (Primary Dx); Neuritis Social History Tobacco Use Types Packs/Day Years Used Date Smoking Tobacco: Never Assessed Sex and Gender Information Value Date Recorded Sex Assigned at Not on file Gender Identity Not on file Sexual Orientation Not on file Job Start Date Occupation Industry Not on file Not on file Not on file documented as of this encounter Last Filed Vital Signs Vital Sign Reading Time Taken Comments Blood Pressure - - Pulse - - Temperature - - Respiratory Rate - - Oxygen Saturation - - Inhaled Oxygen Concentration - - Weight 116 kg (255 lb) 07/26/2024 11:03 AM EST Height 167.6 cm (5' 6 ) 07/26/2024 11:03 AM EST Body Mass Index 41.16 07/26/2024 11:03 AM EST documented in this encounter Ordered Prescriptions Prescription Sig Dispensed Refills Start Date End Da te meloxicam (Mobic) 15 mg tablet Take 1 tablet (15 mg total) by mouth 1 (one) time each day. 30 each 07/26/2024 07/26/2025 documented in this encounter Progress Notes * Ian Lockhart, DPM - 07/26/2024 11:00 AM EST IDENTIFIER: Ezra is a 54 y.o. year old male who presents for consultation. CC: Foot pain HPI: Patient presents today with his friend present he reports that he is having chronic irritation of his left lower extremity going on for several years he does have a past medical history listed below does note that he gets a reading sharp shooting pain in his left foot presents and last for about 4 to 5 days and then resolves he states he does have a history of gout this was back when he was suffering from alcohol consumption a younger age states that he has not does not feel like this pain is the same but does note that it is very transient presents sporadically last about 4 to 5 days and then resolves is not induced by activity reports history of polytrauma left ankle and infection withoutother pain or discomfort ROS: GENERAL: Pt denies nausea, fever, vomiting, chills, or shortness of breath. Pt in NAD. CARDIOLOGY: pt denies chest pain, palpitations LUNGS: pt denies shortness of breath MUSCULOSKELETAL: See HPI, otherwise no joint pain or swelling, back pain, or muscle pain. SKIN: see HPI, otherwise no lesions, rash or itching NEURO: No persistent headache, weakness or numbness The remainder of the review of systems is noncontributory PAST MEDICAL HISTORY: Patient Active Problem List Diagnosis Foot pain TBI (traumatic brain injury) ([facility]) Smoker History of alcohol abuse Multiple lipomas Anxiety Depression PTSD (post-traumatic stress disorder) SOCIAL HISTORY: Social History Tobacco Use Smoking status: Not on file Smokeless tobacco: Not on file Substance Use Topics Alcohol use: Not on file ACTIVE MEDICATIONS: No outpatient medications have been marked as taking for the 07/26/24 encounter (Consult) with Ian Lockhart DPM. ALLERGIES: Allergies Allergen Reactions Codeine Pruritus Morphine Opium (Anthroposophic) Trazodone Zolpidem PHYSICAL EXAM: Visit Vitals Ht 1.676 m (66 ) Wt 116 kg (255 lb) BMI 41.16 kg/m?? BSA 2.22 m?? PODIATRIC EXAMINATION: GENERAL: Patient appears well nourished, with NAD. VASCULAR: Dorsalis pedis pulses are 2/4 bilaterally and Posterior tibial pulses are 2/4 bilaterally. Capillary filling time within normal limits the digits. No pallor on elevation or rubor on dependency. Positive hair growth. No varicosities. Denies rest pain or claudication pain. NEUROLOGICAL: Sharp/dull sensation intact, protective sensation intact 10/10 with 5.07 semmes kenny bilaterally, vibratory sensation with tuning fork intact to the tibial tuberosity. ORTHOPEDIC: Good muscle strength 5/5 of all flexors and extensors. Dorsi flexion of ankle ,10 degrees, plantar flexion WNL. No muscle atrophy. DERMATOLOGICAL:. Scar tissue formation anterior aspect left ankle consistent with previous polytrauma's BIOMECHANICS: Ankle ROM WNL, STJ ROM wnl, MTJ ROM wnl, 1st MPJ ROM wnl. IMAGING: IMPRESSION: 1. Chronic gout involving toe without tophus, unspecified cause, unspecified laterality 2. Neuritis PLAN: Pt was seen and examined, history reviewed. Normal foot exam discussed with patient in detail Treatment options for either neuritis versus gouty arthritis flares were discussed and reviewed discussed inflammation management Mobic prescribed prescription drug management to be utilized for flares be taken once daily for at least 2 weeks duration 1 flare is present Discussed multiple working diagnoses spinal inflammation back arthritis versus gouty arthropathy EMG/NCV study ordered to be taken bilaterally Side effects from opiates were reviewed with patient he is not on any blood thinners and does not have a history of GERD Follow-up in 6 weeks to review multiple studies X-ray order left foot 3 views X-ray order left ankle 3 views Ian Lockhart DPM documented in this encounter Plan of Treatment Upcoming Encounters Date Type Department Care Team (Late st Contact Info) Description 09/18/2024 10:30 AM EST Office Visit Orthopedic Surgery [facility] [address] [phone] Ian Lockhart DPM [address] [address] 10/22/2024 2:00 PM EDT Appointment [facility] Neurodiagnostic [address] [place] [phone] Scheduled Orders Name Type Priority Associated Diagnoses Orde r Schedule EMG two limbs Neurology Routine Chronic gout involving toe without tophus, unspecified cause, unspecified laterality Neuritis 1 Occurrences starting 07/26/2024 until 07/26/2025 documented as of this encounter Results * Uric acid (07/30/2024 11:17 AM EST) Uric Acid 6.4 3.7 - 9.2 mg/dL LAB CHEMISTRY METHOD 07/30/2024 5:34 PM EST [facility] Blood Venous blood specimen / Unknown Venipuncture / Unknown 07/30/2024 11:17 AM EST 07/30/2024 11:17 AM EST Ian Lockhart DPM LAB BLOOD ORDERAB LES [facility] [address] [place] [address], documented in this encounter Visit Diagnoses Diagnosis Chronic gout involving toe without tophus, unspecified cause, unspecified laterality- Primary Neuritis Unspecified neuralgia, neuritis, and radiculitis documented in this encounter Care Teams Livestock Trader Relationship Specialty Start Date End Date Doc Cortes MD [address] [place] [address] PCP - General Internal Medicine 07/24/21 documented as of this encounter
== END 2024-08-23 11:43 | disposition home or self-care (01) ==
LOC: HO.HMCH 11:04
PROVIDERS: PCP Internal Medicine; Visit Provider Internal Medicine
DX: R25.1 Tremor, unspecified (principal)

== ENCOUNTER → 2024-08-23 11:04 | Outpatient (BNVA) | payer OTHER, SELFPAY | PROVIDERS: PCP Internal Medicine; Visit Provider Internal Medicine | DX: R25.1 Tremor, unspecified (principal) | CPT/HCPCS: 96127 ==

== ENCOUNTER 2025-02-26 15:26 | Outpatient (AMB) | payer OTHER, SELFPAY ==
--- OUTSIDE RECORDS SUMMARY | 2024-06-28 09:00 | XMS_ITS ---
Author Organization [facility] Address [address] [place] [address] Care Team Providers Care Clinical Pharmacy Technician Name Role Phone Doc Cortes MD Primary Care Provider Harley Ignacio Unavailable [phone] REASON FOR VISIT chronic gerd, epigastric pain Problems Problem Type SNOMED Code ICD Code Onset Dates Problem Status W/U Status Risk Notes Problem Gastro-esophagea l reflux disease without esophagitis (600441381) Gastro-esophage al reflux disease without esophagitis (K21.9) Active confirmed Problem Erosive esophagitis (93914151) Erosive esophagitis (K22.10) Active confirmed Encounters Encounter Location Date Provider Diagnosis [facility] [address] [place] [id number] 06/28/2024 Harley Nicholas Gastro-esophageal reflux disease without esophagitis K21.9 ; Erosive esophagitis K22.10 and Abdominal pain R10.9 Assessments Encounter Date Diagnosis (ICD Code) Assessment Notes Treatment Notes Treatment Clinical Notes Section Notes 06/28/2024 Gastro-esophagea l reflux disease without esophagitis (ICD-10 - K21.9) 06/28/2024 Erosive esophagitis (ICD-10 - K22.10) 06/28/2024 Abdominal pain (ICD-10 - R10.9) Plan Of Treatment No Information Progress Notes * JENNIFER BASHIRDOB:1970 (54 yo M)Acc No.[id number]:06/28/2024 EGD/MAC Patient: JENNIFER SOTELO Provider: Anabelle Nicholas MD :1970 A ge:54 Y S ex:Male Date:06/28/2024 Address:[address] [place], [place] [id number] Pcp:Doc Cortes MD Subjective: * Chief Complaints: * 1 . Chronic gerd, epigastric pain. * Medical History: Objective: * Vitals: Assessment: * Assessment: 1. G chela-esophageal reflux disease without esophagitis - K21.9 (Primary) 2 .?Erosive esophagitis - K22.10 3 . A bdominal pain - R10.9 Plan: * Treatment: * Procedure Codes: 4 3239 UPPER GI ENDOSCOPY, BIOPSY * * The named appointment provid er may or may not be the originator of this progress note, and it is not deemed complete until electronically signed by the appointment provider. Sign off status: Pending * Provider: Anabelle Nicholas MD Date: 1 08/29/2023 Generated for Keyshawn turk/Ubaldo/Pariitting on: 0 02/26/2025 04:15 PM EDT
[2025-02-26 15:36] VITALS: BP 130/66; PULSE 59; RESP 18; O2SAT 96; BMI 37.8
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
--- OUTSIDE RECORDS SUMMARY | 2025-02-26 16:15 | XMS_ITS | Clinical Summary ---
Author Organization [address] [facility] Address [address] [place] [address] Phone Care Team Providers Care Laborer [employer] Name Role Phone Doc Cortes MD Primary Care Provider [phone] Allergies Active Allergy Reactions Criticality Noted Date Comments Codeine 06/22/2024 Pruritus Morphine 06/22/2024 Opium (Anthroposophic) 06/22/2024 Trazodone 06/22/2024 Zolpidem 06/22/2024 Medications mirtazapine (REMERON) 15 mg tablet Take 1 tablet (15 mg total) by mouth at bedtime. Active meloxicam (Mobic) 15 mg tablet Take 1 tablet (15 mg total) by mouth 1 (one) time each day. 30 each 11 07/26/2024 Active Active Problems Problem Noted Date Diagnosed Date Foot pain 06/22/2024 TBI (traumatic brain injury) (CMS/HCC V24, CMS/H CC V28) 06/22/2024 Smoker 06/22/2024 History of alcohol abuse 06/22/2024 Multiple lipomas 06/22/2024 Anxiety 06/22/2024 Depression 06/22/2024 PTSD (post-traumatic stress disorder) 06/22/2024 Social History Tobacco Use Types Packs/Day Years Used Date Smoking Tobacco: Never Assessed Sex and Gender Information Value Date Recorded Sex Assigned at Not on file Legal Sex Male 7:44 AM EST Gender Identity Not on file Sexual Orientation Not on file Last Filed Vital Signs Vital Sign Reading Time Taken Comments Blood Pressure - - Pulse - - Temperature - - Respiratory Rate - - Oxygen Saturation - - Inhaled Oxygen Concentration - - Weight 116 kg (255 lb) 09/18/2024 10:21 AM EST Height 167.6 cm (5' 5.98 ) 09/18/2024 10:[address] Body Mass Index 41.18 09/18/2024 10:21 AM EST Plan of Treatment Health Maintenance Due Date Last Done Comments Hepatitis A Vaccines (1 of 2 - Risk 2-dose series) 1988 Hepatitis B Vaccines (1 of 3 - 19+ 3-dose series) 1988 Pneumococcal Vaccine: 50+ Years (1 of 1 - PCV) 2019 Zoster Vaccines (1 of 2) 2019 Colorectal Cancer Screening: Colonoscopy 06/20/2022 HIV Screening 06/20/2022 Medicare Annual Wellness Visit 06/20/2022 Social Influencers of Health Screening 06/20/2022 COVID-19 Vaccine (4 - 2023-2 5 season) 2024 01/01/2022, 12/02/2020, 11/05/2020 Depression Screening 07/18/2024 Influenza Vaccine (#1) 2025 DTaP,Tdap,and Td Vaccines (2 - Tdap) 05/04/2026 [...] patient's age to complete this topic Meningococcal B Vaccine Aged Out No l onger eligible based on patient's age to complete this topic RSV Immunization Patients Under 20 months Aged Out No longer eligible b ased on patient's age to complete this topic Varicella Vaccines Aged Out No longer eligible based on patient's age to complete this topic Insurance [facility] MEDICARE Member Subscriber Plan / Payer (Ef fective 2023-Present) Name:Jeff Munguia Relation to Subscriber:Self Name:Jeff Munguia Payer ID:[id number] Group ID:[id number] Type:Not on file Address: [facility] [address] [address] MEDICAID - [place] Care Teams Laborer Yard Relationship Specialty Start Date End Date Doc Cortes MD [address] [place] [address] [address] [place] [id number] PCP - General Internal Medicine 07/24/21
--- OUTSIDE RECORDS SUMMARY | 2025-02-26 16:15 | XMS_ITS | Encounter Summary ---
Author Organization [facility] Address [facility] [employer] [facility] [address] [place] [address] Phone Care Team Providers Care Elevator Constructor Supervisor Name Role Phone Taty Fierro MD Primary Care Provid er Adrián Catherine MD Unavailable [phone] Encounter Details Date Type Department Care Team (Late st Contact Info) Description 03/02/2022 Procedure Pass OR Admitting Dept - Virtual Department [address] [place] [address] Social History Tobacco Use Types Packs/Day Years Used Date Smoking Tobacco: Every Day Cigarettes Smokeless Tobacco: Never Alcohol Use Standard Drinks/Week Comments Not Currently 0 (1 standard drink = 0.6 oz pure alcohol) recovery 15 years rarely (12/08/21) last weekend relapse, 1 case/day beer, 1 bottle bourbon Child or Family Care Answer Date Record ed Do you have problems with on e of the following making it difficult for you to work, study, or receive health care? No 11/10/2021 Education Answer Date Recorded Are you interested in help w ith more adult education (for example, completing high school, GED, job training, learning the [place] language, technical skills, or developing parenting skills)? Yes 11/10/2021 Are you concerned about learning? Not on file 11/10/2021 Yes 11/10/2021 No 11/10/2021 Food Answer Date Recorded Within the past 6 months we worried whether our food would run out before we got money to buy more. Sometimes True 022 Within the past 6 months the food we bought just didn't last and we didn't have enough money to get more. Sometimes True 10/17 Residential Stability Answer Date Recor ded What is your housing situation today? I have robert guo 11/10/2021 How many times have you move d in the past 12 months? Zero (I did not move) 11/10/2021 06 Are you worried that in t he next 2 months, you may not have your own housing to live in? No 11/10/2021 Paying for Meds Answer Date Recorded Do you have trouble paying for medicines? Yes 11/10/2021 Paying Utility Bills Answer Date Record ed Do you have trouble paying your heating or elect ricity bill? Yes 11/10/2021 Transportation Answer Date Recorded Has the lack of transportati on kept you from medical appointments or from getting medications? Yes 11/10/2021 Unemployment Answer Date Recorded Are you currently unemployed or working on a part-time or temporary basis, and looking for work? No 11/10/2021 Sex and Gender Information Value Date Recorded Sex Assigned at Not on file Legal Sex Male 10:38 AM EST Gender Identity Not on file Sexual Orientation Not on file documented as of this encounter Plan of Treatment Not on file documented as of this encounter Visit Diagnoses Not on filedocumented in this encounter Additional Health Concerns Assessment Noted Time PHQ-9 Depression Total Score: 23 022 2:12 PM EDT PHQ-2 Depression Total Score: 6 01/16/20 22 2:12 PM EDT documented as of this encounter Care Teams Elevator Constructor Supervisor Relationship Specialty Start Date End Date Taty Fierro MD [address] [place] [address] [address] [place] [address] [email or web address] PCP - General Family Medicine 11/10/21 05/27/24 Adrián Catherine MD [address] [place] [address], [address] [place] [address] Insurance Assigned Provider 10/23/2207/23/23 documented as of this encounter Additional Source Comments The information contained in this document represents components of the legal health record. It is not the complete legal health record.[facility]
== END 2025-02-26 16:20 | disposition home or self-care (01) ==
LOC: HO.HMCH 15:26
PROVIDERS: PCP Internal Medicine
DX: F41.9 Anxiety disorder, unspecified (principal); F43.12 Post-traumatic stress disorder, chronic; N50.89 Other specified disorders of the male genital organs; Z11.3 Encounter for screening for infections with a predominantly sexual mode of transmission; M25.571 Pain in right ankle and joints of right foot; R14.0 Abdominal distension (gaseous); R10.9 Unspecified abdominal pain; R12 Heartburn

== ENCOUNTER → 2025-02-26 15:26 | Outpatient (BNVA) | payer OTHER, SELFPAY | PROVIDERS: PCP Internal Medicine | DX: R10.13 Epigastric pain (principal); M79.606 Pain in leg, unspecified; G89.29 Other chronic pain; F41.9 Anxiety disorder, unspecified; F32.A Depression, unspecified; F43.12 Post-traumatic stress disorder, chronic; N50.89 Other specified disorders of the male genital organs; M25.571 Pain in right ankle and joints of right foot; R14.0 Abdominal distension (gaseous); G47.33 Obstructive sleep apnea (adult) (pediatric); M79.673 Pain in unspecified foot; R53.83 Other fatigue; Z99.89 Dependence on other enabling machines and devices; Z87.81 Personal history of (healed) traumatic fracture; Z79.899 Other long term (current) drug therapy | CPT/HCPCS: 96127; 99212 ==

== ENCOUNTER 2025-05-03 14:49 | Outpatient (AMB) | payer OTHER, SELFPAY ==
--- NOTE | 2025-05-03 15:02 | A.OFFVIS_ITS ---
Intake Visit Reasons: Scrotal Lipoma Intake Note: New patient presents today for initial visit for scrotal lipoma Urology Medication:None Blood Thinner:None Antibiotic Allergies:None Allergies codeine (CODEINE) Allergy (Unknown, Verified 05/03/25 15:02) PURITIS, HIVES, NAUSEA morphine (MORPHINE) Allergy (Unknown, Verified 05/03/25 15:02) PURITIS, HIVES, NAUSEA opium (anthroposophic) Allergy (Unknown, Verified 05/03/25 15:02) SENSATIVITY trazodone Allergy (Unknown, Verified 05/03/25 15:02) AMS zolpidem (Ambien) Allergy (Unknown, Verified 05/03/25 15:02) AMS Opium Allergy (Unknown, Uncoded 02/26/25 15:48) SENSATIVITY HPI Comments Details: Jeff is a new patient for evaluation of scrotal lipoma. History of Present Illness The patient is a 55-year-old male presenting with scrotal lipomas. The patient reports the presence of lumps on his scrotum since adolescence, which occasionally burst and require management. He has had similar lipomas removed from his face in the past. The lipomas are not painful, but they can become large and burst, causing embarrassment. The patient experiences frequent urination but does not wake up at night to urinate. He has no family history of cancer and is not diabetic. He underwent a vasectomy years ago and is currently not on any medications. Results Plan 1. Scrotal Lipoma - Surgical removal of lipomas in the operating room is planned. - Authorization through insurance will be obtained before scheduling the procedure. 2. Frequent Urination - PSA blood test ordered to assess prostate health. [facility] Medical History TBI (traumatic brain injury) Chronic post-traumatic stress disorder (PTSD) Tobacco dependence Smoker History of alcohol abuse History of seizure Hx of traumatic brain injury Insomnia Panic disorder PTSD (post-traumatic stress disorder) Foot pain Multiple lipomas Anxiety Depression Surgical History Hx of inguinal hernia repair History of esophagogastroduodenoscopy (EGD) H/O colonoscopy History of ankle surgery History of gastric bypass History of vasectomy Family History Father No problems noted. Mother No problems noted. Social History Household Members: None Housing: Apartment Are you a primary respiratory care instructor to a significant other at home: No Do you presently have visiting nurse or other home services: No Alcohol intake: former Comment: sleeping Patient Tobacco Use Status: Current everyday Tobacco user Tobacco use type: Cigarette Cigarette Packs Per Day: 2 Cigarettes Per Day: 40.0 e-Cigarette/Vaping Use: Never Used Second Hand Smoke Exposure: Yes Substance Use Type: Marijuana Advance Directives Date on File: 09/02/20 service: No Current occupational status: unemployed and disabled Current occupation: right handed Sexual orientation: Straight/Heterosexual Cognitive needs: Yes (cane) Hearing needs: No Vision needs: Yes (glasses) Review of Systems Const All systems reviewed & are unremarkable except as noted in HPI and below Reports no additional complaints Eyes Reports no additional complaints ENT Reports no additional complaints Card Reports no additional complaints Resp Reports no additional complaints GI Reports no additional complaints Reports as per HPI Musc Reports no additional complaints Skin/Breast Reports system reviewed and no additional complaints, except as documented Neuro Reports no additional complaints Psych Reports no additional complaints Endo Reports no additional complaints Preet/Lymph Reports no additional complaints Aller/Immun Reports no additional complaints Results AMB Urinalysis, Automated UA Leukoctes 0 Yong/uL Last Edit by Arlin Sylvester on 05/03/25 17:05 UA Nitrite Negative Last Edit by Arlin Sylvester on 05/03/25 17:05 UA Urobilinogen 0.2 mg/dL Last Edit by Arlin Sylvester on 05/03/25 17:05 UA Protein 15 mg/dL Last Edit by Arlin Sylvester on 05/03/25 17:05 UA pH 5.5 Last Edit by Arlin Sylvester on 05/03/25 17:05 UA Blood 0 Wilmer/uL Last Edit by Arlin Sylvester on 05/03/25 17:05 UA Specific [place] 1.020 Last Edit by Arlin Sylvester on 05/03/25 17:05 UA Ketone Negative Last Edit by Arlin Sylvester on 05/03/25 17:05 UA Bilirubin 0 mg/dL Last Edit by Arlin Sylvester on 05/03/25 17:05 UA Glucose 0 mg/dL Last Edit by Arlin Sylvester on 05/03/25 17:05 Assessment & Plan Assessment & Plan Orders: Orders AMB Urinalysis Automated Today N39.0 - Urinary tract infection, site not specified Coding
--- OUTSIDE RECORDS SUMMARY | 2025-05-03 17:20 | XMS_ITS | Clinical Summary ---
Author Organization [address] [facility] Address [address] [place] [address] Phone Care Team Providers Care Publicity Manager Name Role Phone Doc Cortes MD Primary Care Provider [phone] Allergies Active Allergy Reactions Criticality Noted Date [...] Health Maintenance Due Date Last Done Comments Colorectal Cancer Screening: Colonoscopy 1969 Hepatitis A Vaccines (1 of 2 - Risk 2-dose series) 1988 Hepatitis B Vaccines (1 of 3 - 19+ 3-dose series) 1988 Pneumococcal Vaccine: 50+ Years (1 of 2 - PCV) 1988 RSV Immunization Adult Patients (1 - Risk 50-74 years 1-dose series) 2019 Zoster Vaccines (1 of 2) 2019 HIV Screening 06/20/2022 Medicare Annual Wellness Visit 06/20/2022 Social Influencers of Health Screening 06/20/2022 Depression Screening 07/18/2024 COVID-19 Vaccine (4 - 2024-2 6 season) 2025 01/01/2022, 12/02/2020, 11/05/2020 Influenza Vaccine (#1) 2025 DTaP,Tdap,and Td Vaccines [...] patient's age to complete this topic Insurance [facility] MEDICARE Member Subscriber Plan / Payer (Ef fective 2023-Present) Name:Jeff Munguia Relation to Subscriber:Self Name:Jeff Munguia Payer ID:[id number] Group ID:[id number] Type:Not on file Address: [facility] [address] [address] MEDICAID - [place] Care Teams Publicity Manager Relationship Specialty Start Date End Date Doc Cortes MD [address] [place] [address] Drive [address] [place] [address] PCP - General Internal Medicine 07/24/21
== END 2025-05-03 15:47 | disposition home or self-care (01) ==
LOC: HO.HUSH 14:50
PROVIDERS: Visit Provider Urology
DX: N39.0 Urinary tract infection, site not specified (principal)

== ENCOUNTER → 2025-05-03 14:49 | Outpatient (BNVA) | payer OTHER, SELFPAY | PROVIDERS: Visit Provider Urology | DX: L72.3 Sebaceous cyst (principal) | CPT/HCPCS: 81003; 99202 ==